=== PATIENT | female | born 1970 | race Caucasian/White ===

== ENCOUNTER 2016-07-04 15:18 | Emergency (ER) | payer MEDICAID ==
[~2016-07-04] VITALS: Ht 167.6 cm; Wt 70.3 kg
[~2016-07-04 15:18] MED LIST: ABREVA2 GM TOPIC; ACETAMINOPHEN-1 EAC1 ORAL; AMOXICILLIN500 MG ORAL; AUGMENTIN 875-1 EAC1 ORAL; AZITHROMYCIN250 MG ORAL; BENADRYL25 M3 PO; BENADRYL25 MG ORAL; BENAZEPRIL HCL10 MG ORAL; CIPRO500 MG PO; CIPROFLOXACIN500 M2 ORAL; COLACE100 MG ORAL; CYCLOBENZAPRINE10 MG ORAL; FISH OIL500 MG PO; FLONASE ALLERG9.9 ML NS; GOLYTELY4000 ML ORAL; HOLY BASIL; IBUPROFEN600 MG ORAL; IBUPROFEN600 MG PO; KEFLEX500 MG ORAL; LACTULOSE20 GM/301 ORAL; LEVAQUIN500 MG ORAL; LEVOFLOXACIN750 MG ORAL; LIPITOR10 MG ORAL; METRONIDAZOLE500 MG ORAL; MIRALAX17 G2 ORAL; MYCELEX TROCHE10 MG ORO; NEOSPORIN OINT30 GM EXT; NITROFURANTOIN100 M2 ORAL; NKM; NORVASC2.5 MG ORAL; NYQUIL D COLD295 M1 PO; NYSTATIN100000 UN1 ORAL; PREDNISONE20 MG ORAL; PROBIOTIC1 EAC6 PO; TAMIFLU75 MG ORAL; TRAMADOL HCL50 MG ORAL; VITAMIN B COMP1 EAC2 ORAL; VITAMIN B-12500 MCG PO; VITAMIN D1000 UNI1 ORAL; ZETIA10 MG ORAL; ZOFRAN4 MG ORAL; ZYRTEC10 MG ORAL
[2016-07-04] MEDS ORDERED: TAMIFLU45 MG ORAL (15:32)
[2016-07-04 15:34] VITALS: BP 149/80
--- NOTE | 2016-07-04 17:20 | Emergency Room Report ---
History of Present Illness General Chief Complaint: General Complaint Source: Patient Present Illness HPI 46 YO F here with "I feel like shit" after taking first dose of tamiflu. I saw patient in ED Jun 06 and diagnosed her with possible influenza. I prescribed Tamiflu because symptom onset was within 48 hours at that time. Patient did NOT take tamiflu then because "I felt better." She was using flonase PRN with improvement. Today she felt cough/symptoms "returning" and took dose of tamiflu -soon after had stomach discomfort with vomiting and diarrhea. Denies previous abd surgery, sick contacts, urinary complaints, foreign travel. Unable to tolerate PO currently. Allergies: Coded Allergies: HYDROMORPHONE (Verified Allergy, Intermediate, Anaphylaxis, 06/22/14) sob, itching and closing throat IODINE (Verified Allergy, Mild, Rash, 06/06/13) RASPBERRY (Verified Allergy, Unknown, 04/03/16) SHELLFISH DERIVED (Verified Allergy, Unknown, 04/03/16) WHEAT (Verified Allergy, Unknown, 09/21/15) Patient History Past Medical History: none Past Surgical History: none Pertinent Family History: none Social History: Denies: alcohol use, drug use, smoking Last Menstrual Period: hysterectomy 2012 Now: No Immunizations: UTD Reviewed Nursing Documentation: PMH: Agreed, PSxH: Agreed Nursing Documentation-PMH Past Medical History: No History, Except For Hx Cardiac Problems: No - hysterectomy 2012 Hx Hypertension: Yes Hx Pacemaker: No Hx Asthma: No Hx COPD: No Hx Diabetes: No Hx Gastrointestinal Problems: Yes Hx Dialysis: No Hx Neurological Problems: No Hx Cerebrovascular Accident: No Hx Seizures: No Hx Dizziness: Yes Review of Systems All Other Systems: negative except mentioned in HPI Physical Exam Vital Signs Date Time Temp Pulse Resp B/P Pulse Ox O2 Delivery O2 Flow Rate FiO2 07/04/16 15:24 98.2 73 14 162/103 99 Room Air Sp02 EP Interpretation: reviewed, normal General Appearance: normal inspection, well appearing, no apparent distress, alert Head: normocephalic, atraumatic ENT: normal ENT inspection, hearing grossly normal, normal voice Neck: normal inspection, full range of motion, supple, no bony tend Respiratory: normal inspection, lungs clear, normal breath sounds, no respiratory distress, no retraction, no wheezing Cardiovascular #1: regular rate, rhythm, no edema Gastrointestinal: normal inspection, normal bowel sounds, non tender, soft, no guarding, no hernia, no pulsatile mass, no rebound Genitourinary: no CVA tenderness Musculoskeletal: normal inspection, back normal, normal range of motion, Ana' s Sign negative Neurologic: normal inspection, alert, responsive, speech normal Psychiatric: normal inspection, judgement/insight normal, mood/affect normal Skin: normal inspection, normal color, no rash Medical Decision Making Diagnostic Impression: Primary Impression: Allergic reaction Qualified Codes: T78.40XA - Allergy, unspecified, initial encounter ER Course 46 YO F with likely allergic reaction to tamiflu. I documented in chart Patient had recurrence of congestion symptoms/URI but CXR does not show PNA. No leuks or other acute abnormalities labs Patient feels much better s/p IVF hdyration, anti emetic. Tolerating PO Rx Zofran, Pepcid, BRAT diet Progress diet slowly PMD followup Advised to avoid tamiflu in future Last Vital Signs Date Time Temp Pulse Resp B/P Pulse Ox O2 Delivery O2 Flow Rate FiO2 07/04/16 15:34 97.5 72 15 149/80 99 Room Air Status: improved Disposition: HOME, SELF-CARE Scripts Famotidine (PEPCID) 20 Mg Tablet 20 MG ORAL BID for 7 Days, #14 TAB 0 Refills Prov: ABEL LAMBERT M.D. 07/04/16 Ondansetron Odt* (ZOFRAN ODT*) 4 Mg Tab.rapdis 4 MG ORAL Q6H Y for Nausea & Vomiting, #30 TAB 0 Refills Prov: ABEL LAMBERT M.D. 07/04/16 Referrals: PAT LEE (PCP) ABEL LAMBERT M.D. Jul 04, 2016 17:20
[2016-07-04 17:35] LABS: APPEARANCE,URINE CLEAR; BASOPHILS % (AUTO) 0.9 % (0.0-2.0); EOSINOPHILS % (AUTO) 1.5 % (0.0-3.0); KETONES,URINE NEGATIVE (NEGATIVE); LEUKOCYTE ESTERASE ,URINE 3+ (NEGATIVE); MEAN CORPUSCULAR HEMOGLOBIN 30.7 PG (27.0-31.0); MEAN CORPUSCULAR HGB CONC 33.6 G/DL (32.0-36.0); MEAN CORPUSCULAR VOLUME 91 FL (80-99); MEAN PLATELET VOLUME 7.6 FL (6.5-10.1); MONOCYTES % (AUTO) 4.1 % (1.0-10.0); NEUTROPHILS % (AUTO) 72.6 % (45.0-75.0); NITRITE,URINE NEGATIVE (NEGATIVE); PH,URINE 6.5 (4.5-8.0); PLATELET COUNT 334 K/UL (150-450); PROTEIN,URINE NEGATIVE (NEGATIVE); RED BLOOD COUNT 4.35 M/UL (4.20-5.40); RED CELL DISTRIBUTION WIDTH 11.7 % (11.6-14.8); UROBILINOGEN,URINE NORMAL MG/DL (0.0-1.0); WHITE BLOOD COUNT 10.5 K/UL (4.8-10.8)
[2016-07-04] MEDS ORDERED: PEPCID20 MG ORAL (17:37)
[2016-07-04] MEDS ORDERED: ZOFRAN ODT4 MG ORAL (17:37)
[2016-07-04 17:43] LABS: BACTERIA,URINE FEW /HPF; SQUAMOUS EPITHELIAL CELL,UR FEW /LPF (NONE/OCC); YEAST,URINE OCCASIONAL /HPF
[2016-07-04 17:53] LABS: ALANINE AMINOTRANSFERASE 18 U/L (3-33); ALBUMIN/GLOBULIN RATIO 1.3 (1.0-2.7); ANION GAP 15 (5-15); ASPARTATE AMINO TRANSFERASE 18 U/L (5-40); CARBON DIOXIDE 27 mEQ/L (20-30); CHLORIDE 97 mEQ/L (98-107); CREATININE 0.6 mg/dL (0.5-0.9); GLOMERULAR FILTRATION RATE > 60 mL/min (>60); HEMOLYSIS 3; LIPASE 24 U/L (< 60); POTASSIUM 3.9 mEQ/L (3.4-4.9); SODIUM 139 mEQ/L (135-145); TOTAL PROTEIN 8.3 g/dL (6.6-8.7)
[2016-07-04 18:24] VITALS: BP 151/73
[2016-07-04] MEDS ORDERED: Ketorolac 30mg Inj IV ONE (18:30)
[2016-07-04 18:49] VITALS: BP 151/73
--- NOTE | 2016-07-05 10:41 | Diagnostic Imaging Report ---
Indication: SOB Technique: One view of the chest Comparison: 09/20/2015 Findings: Lungs and pleural spaces are clear. Heart size is normal. No significant change Impression: No acute process
== END 2016-07-04 18:49 | disposition home or self-care (01) ==
LOC: EMR 15:50
DX: T78.40XA Allergy, unspecified, initial encounter (principal); I10 Essential (primary) hypertension; Z90.710 Acquired absence of both cervix and uterus; Z88.6 Allergy status to analgesic agent; Z91.041 Radiographic dye allergy status; Z91.013 Allergy to seafood; Z91.018 Allergy to other foods; X58.XXXA Exposure to other specified factors, initial encounter; Y92.9 Unspecified place or not applicable; Y99.8 Other external cause status
CPT/HCPCS: 36415; 71010; 80053; 81003; 83690; 85025; 87086; 87181; 96361; 96374; 96375; 99284; J1885; J2405

== ENCOUNTER 2016-08-16 22:48 | Emergency (ER) | payer MEDICAID ==
[~2016-08-16] VITALS: Ht 170.2 cm; Wt 70.3 kg
[~2016-08-16 22:48] MED LIST changes: +PEPCID20 MG ORAL; +TAMIFLU45 MG ORAL; +ZOFRAN ODT4 MG ORAL
[2016-08-16 23:15] VITALS: BP 175/97
[2016-08-16] MEDS ORDERED: Ketorolac 30mg Inj IV ONE (23:30)
--- NOTE | 2016-08-16 23:35 | Emergency Room Report ---
History of Present Illness General Chief Complaint: Vomiting Source: Patient Present Illness HPI This is a 46-year-old female with a history hypertension but no longer any blood pressure medication. She presents with chief complaint of feeling weak. Onset today. She has multiple episode vomiting. Nonbloody and nonbilious. Small amount of diarrhea. Does have abdominal cramps. Denies any other complaint. No fever or chills. No chest pain. No urinary complaint. Unable to keep anything down. She came in because she was concerned about her blood pressure been very high. Allergies: Coded Allergies: HYDROMORPHONE (Verified Allergy, Intermediate, Anaphylaxis, 06/22/14) sob, itching and closing throat IODINE (Verified Allergy, Mild, Rash, 06/06/13) RASPBERRY (Verified Allergy, Unknown, 04/03/16) SHELLFISH DERIVED (Verified Allergy, Unknown, 04/03/16) WHEAT (Verified Allergy, Unknown, 09/21/15) OSELTAMIVIR (Verified Adverse Reaction, Mild, 07/04/16) Nausea, vomiting, stomach discomfort and diarrhea Patient History Past Medical History: see triage record, old chart reviewed, HTN Past Surgical History: other Pertinent Family History: none Social History: Denies: smoking Now: No Immunizations: other Reviewed Nursing Documentation: PMH: Agreed, PSxH: Agreed Nursing Documentation-PMH Hx Cardiac Problems: No - hysterectomy 2012 Hx Hypertension: Yes Hx Pacemaker: No Hx Asthma: No Hx COPD: No Hx Diabetes: No Hx Gastrointestinal Problems: Yes Hx Dialysis: No Hx Neurological Problems: No Hx Cerebrovascular Accident: No Hx Seizures: No Hx Dizziness: Yes Review of Systems Eye: Denies: blurred vision, eye pain ENT: Denies: ear pain, nose congestion, throat swelling Respiratory: Denies: cough, shortness of breath Cardiovascular: Denies: chest pain, palpitations Gastrointestinal: Reports: abdominal pain, nausea, vomiting, Denies: diarrhea Musculoskeletal: Denies: back pain, joint pain Skin: Denies: rash Neurological: Denies: headache, numbness Endocrine: Denies: increased thirst, increased urine Hematologic/Lymphatic: Denies: easy bruising All Other Systems: negative except mentioned in HPI Physical Exam Vital Signs Date Time Temp Pulse Resp B/P Pulse Ox O2 Delivery O2 Flow Rate FiO2 08/16/16 23:01 98.4 84 16 186/112 98 Room Air vitals with hypertension Sp02 EP Interpretation: reviewed, normal General Appearance: well appearing, no apparent distress, alert Head: normocephalic, atraumatic Eyes: bilateral eye EOMI, bilateral eye PERRL ENT: hearing grossly normal, normal pharynx Neck: full range of motion, supple, no meningismus Respiratory: chest non-tender, lungs clear, normal breath sounds Cardiovascular #1: regular rate, rhythm, no murmur Gastrointestinal: non tender, no mass, no organomegaly, no bruit, non-distended , abnormal bowel sounds - Hyper active Musculoskeletal: back normal, gait/station normal, normal range of motion Psychiatric: anxious Skin: warm/dry Medical Decision Making Diagnostic Impression: Primary Impression: Abdominal pain Qualified Codes: R10.84 - Generalized abdominal pain Additional Impressions: Vomiting Qualified Codes: R11.2 - Nausea with vomiting, unspecified Hypertension Qualified Codes: I10 - Essential (primary) hypertension Proteinuria ER Course Patient presents with abdominal cramps with vomiting and small amount of diarrhea. Blood pressure improved after IV fluid and antinausea medication. She was on benazepril before. She tolerated well. We'll discharge back on it. She would benefit from an LIDIA inhibitor medication because of her proteinuria. No evidence of acute abdomen. No melena pain now. No longer nauseous. No evidence of obstruction. This is most likely viral in nature. Lab Results Impression labs unremarkable Last Vital Signs Date Time Temp Pulse Resp B/P Pulse Ox O2 Delivery O2 Flow Rate FiO2 08/16/16 23:01 98.4 84 16 186/112 98 Room Air Status: improved Disposition: HOME, SELF-CARE Condition: Stable Scripts Ondansetron (Zofran) 4 Mg Tablet 4 MG ORAL Q6H Y for Nausea & Vomiting, #10 TAB 0 Refills Prov: RANJANA HO M.D. 08/17/16 Benazepril Hcl* (BENAZEPRIL HCL*) 10 Mg Tablet 10 MG ORAL DAILY, #90 TAB Prov: RANJANA HO M.D. 08/17/16 Referrals: [facility],REFERRING (PCP) Patient Instructions: Nausea and Vomiting, Adult Additional Instructions: Followup with your Dr. to 3 days and not better. Return if symptom worsen. Your doctor recheck on her blood pressure. RANJANA HO M.D. Aug 16, 2016 23:35
[2016-08-16 23:48] LABS: BASOPHILS % (AUTO) 1.4 % (0.0-2.0); EOSINOPHILS % (AUTO) 1.4 % (0.0-3.0); LYMPHOCYTES % (AUTO) 22.4 % (20.0-45.0); MEAN CORPUSCULAR HEMOGLOBIN 29.7 PG (27.0-31.0); MEAN CORPUSCULAR HGB CONC 32.5 G/DL (32.0-36.0); MEAN CORPUSCULAR VOLUME 91 FL (80-99); MEAN PLATELET VOLUME 7.8 FL (6.5-10.1); MONOCYTES % (AUTO) 3.9 % (1.0-10.0); NEUTROPHILS % (AUTO) 70.9 % (45.0-75.0); PLATELET COUNT 336 K/UL (150-450); RED BLOOD COUNT 4.52 M/UL (4.20-5.40); RED CELL DISTRIBUTION WIDTH 11.6 % (11.6-14.8); WHITE BLOOD COUNT 9.7 K/UL (4.8-10.8)
[2016-08-16 23:52] LABS: APPEARANCE,URINE CLEAR; KETONES,URINE NEGATIVE (NEGATIVE); LEUKOCYTE ESTERASE ,URINE 2+ (NEGATIVE); NITRITE,URINE NEGATIVE (NEGATIVE); PH,URINE 8 (4.5-8.0); PROTEIN,URINE 3+ (NEGATIVE); UROBILINOGEN,URINE NORMAL MG/DL (0.0-1.0)
[2016-08-17 00:04] LABS: ALANINE AMINOTRANSFERASE 19 U/L (3-33); ALBUMIN/GLOBULIN RATIO 1.1 (1.0-2.7); ANION GAP 17 (5-15); ASPARTATE AMINO TRANSFERASE 24 U/L (5-40); CALCIUM 10.2 mg/dL (8.6-10.2); CARBON DIOXIDE 26 mEQ/L (20-30); CHLORIDE 92 mEQ/L (98-107); CREATININE 0.6 mg/dL (0.5-0.9); GLOMERULAR FILTRATION RATE > 60 mL/min (>60); HEMOLYSIS 28; LIPASE 20 U/L (< 60); POTASSIUM 4.1 mEQ/L (3.4-4.9); SODIUM 135 mEQ/L (135-145); TOTAL PROTEIN 8.7 g/dL (6.6-8.7)
[2016-08-17 00:11] LABS: AMORPHOUS SEDIMENT,UR MANY /LPF; BACTERIA,URINE FEW /HPF; RBC,URINE 15-20 /HPF (0 - 2); SQUAMOUS EPITHELIAL CELL,UR FEW /LPF (NONE/OCC)
[2016-08-17] MEDS ORDERED: ZOFRAN4 MG ORAL (00:44)
[2016-08-17] MEDS ORDERED: BENAZEPRIL HCL10 MG ORAL (00:44)
[2016-08-17 00:49] VITALS: BP 156/97
[2016-08-17 00:50] VITALS: BP 175/97
== END 2016-08-17 00:56 | disposition home or self-care (01) ==
LOC: EMR 23:20
DX: R10.9 Unspecified abdominal pain (principal); R11.2 Nausea with vomiting, unspecified; I10 Essential (primary) hypertension; R80.9 Proteinuria, unspecified; R19.7 Diarrhea, unspecified
CPT/HCPCS: 36415; 80053; 80300; 81003; 81025; 83690; 85025; 96374; 96375; 99284; J1885; J2405

== ENCOUNTER 2016-10-27 07:56 | Emergency (ER) | payer MEDICAID ==
[~2016-10-27] VITALS: Ht 170.2 cm; Wt 74.8 kg
[2016-10-27 08:16] VITALS: BP 166/92
--- NOTE | 2016-10-27 08:20 | Emergency Room Report ---
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 pulling and pushing Which she feels could potentially have exacerbated/initiated the discomfort Denies any focal weakness Pain starts in the rhomboid region on the right side comes around the lower scapular region Patient also has pain to the top of the shoulder Denies any abdominal pain denies any flank pain denies any fall or trauma Allergies: Coded Allergies: HYDROMORPHONE (Verified Allergy, Intermediate, Anaphylaxis, 06/22/14) sob, itching and closing throat IODINE (Verified Allergy, Mild, Rash, 06/06/13) RASPBERRY (Verified Allergy, Unknown, 04/03/16) SHELLFISH DERIVED (Verified Allergy, Unknown, 04/03/16) WHEAT (Verified Allergy, Unknown, 09/21/15) OSELTAMIVIR (Verified Adverse Reaction, Mild, 07/04/16) Nausea, vomiting, stomach discomfort and diarrhea Patient History Past Medical History: see triage record Pertinent Family History: none Last Menstrual Period: hx of hysterectomy Reviewed Nursing Documentation: PMH: Agreed, PSxH: Agreed Nursing Documentation-PMH Past Medical History: No History, Except For Hx Cardiac Problems: No - hysterectomy 2012 Hx Hypertension: Yes Hx Pacemaker: No Hx Asthma: No Hx COPD: No Hx Diabetes: No Hx Gastrointestinal Problems: Yes Hx Dialysis: No Hx Neurological Problems: No Hx Cerebrovascular Accident: No Hx Seizures: No Hx Dizziness: Yes Review of Systems All Other Systems: negative except mentioned in HPI Physical Exam Vital Signs Date Time Temp Pulse Resp B/P Pulse Ox O2 Delivery O2 Flow Rate FiO2 10/27/16 08:01 97.9 78 16 166/92 98 Room Air Sp02 EP Interpretation: reviewed, normal General Appearance: well appearing, no apparent distress Head: normocephalic, atraumatic Eyes: bilateral eye EOMI, bilateral eye PERRL ENT: normal pharynx Neck: full range of motion, supple Respiratory: lungs clear Cardiovascular #1: regular rate, rhythm Gastrointestinal: non tender Musculoskeletal: other - Patient has discomfort on the palpation of the mid right rhomboid region, also discomfort at the anterior shoulder after approximately 45 flexion patient able to supinate and pronate, Neurologic: alert, oriented x3, responsive, 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 account leader III-XII nml as tested, motor strength/tone normal Skin: no rash Lymphatic: no adenopathy Medical Decision Making Diagnostic Impression: Primary Impression: arm sprain ER Course Consideration for DVT vascular pathology, musculoskeletal, referred pain such as abdominal pathology entertained Patient's discomfort however clinically fits into musculoskeletal pathology also clinically on the exam And otherwise stable for close outpatient followup Last Vital Signs Date Time Temp Pulse Resp B/P Pulse Ox O2 Delivery O2 Flow Rate FiO2 10/27/16 08:16 97.9 16 166/92 98 Room Air 10/27/16 08:01 78 Status: unchanged Disposition: HOME, SELF-CARE Condition: Stable Referrals: [facility],REFERRING (PCP) Patient Instructions: Shoulder Sprain Additional Instructions: It is advised to use rest the right arm and shoulder, repetitive movement and continued to work and continued to worsen your symptoms TIAN WEBSTER D.O. October 27, 2016 08:20
[2016-10-27 08:25] VITALS: BP 166/92
== END 2016-10-27 08:38 | disposition home or self-care (01) ==
LOC: EMR 08:12
DX: S43.491A Other sprain of right shoulder joint, initial encounter (principal); X50.9XXA Other and unspecified overexertion or strenuous movements or postures, initial encounter; Y92.89 Other specified places as the place of occurrence of the external cause; I10 Essential (primary) hypertension; Z88.6 Allergy status to analgesic agent; Z91.013 Allergy to seafood; Z91.018 Allergy to other foods
CPT/HCPCS: 99282

== ENCOUNTER 2017-01-05 18:17 | Emergency (ER) | payer MEDICAID ==
[~2017-01-05] VITALS: Ht 170.2 cm; Wt 75.7 kg
[2017-01-05] MEDS ORDERED: NAPROSYN500 M1 ORAL (18:49)
[2017-01-05] MEDS ORDERED: Naproxen 500mg tab ORAL ONE (19:00)
[2017-01-05 19:02] VITALS: BP 158/89
--- NOTE | 2017-01-05 21:19 | Emergency Room Report ---
History of Present Illness General Chief Complaint: Lower Extremity Injury Present Illness HPI The patient is a 46-year-old female presenting for left leg pain. The patient states that she has been exercising more than usual over the past 3 days which is when the pain began. She denies any injury. Pain worse with walking. She has not tried any pain medications. She denies any radiating pain. It is described as a 9/10 dull ache. She denies any other symptoms Allergies: Coded Allergies: HYDROMORPHONE (Verified Allergy, Intermediate, Anaphylaxis, 06/22/14) sob, itching and closing throat IODINE (Verified Allergy, Mild, Rash, 06/06/13) RASPBERRY (Verified Allergy, Unknown, 04/03/16) SHELLFISH DERIVED (Verified Allergy, Unknown, 04/03/16) WHEAT (Verified Allergy, Unknown, 09/21/15) OSELTAMIVIR (Verified Adverse Reaction, Mild, 07/04/16) Nausea, vomiting, stomach discomfort and diarrhea Patient History Past Medical History: see triage record Pertinent Family History: none Last Menstrual Period: 1998 Now: No Reviewed Nursing Documentation: PMH: Agreed, PSxH: Agreed Nursing Documentation-PMH Hx Cardiac Problems: No - hysterectomy 2012 Hx Hypertension: Yes Hx Pacemaker: No Hx Asthma: No Hx COPD: No Hx Diabetes: No Hx Gastrointestinal Problems: Yes Hx Dialysis: No Hx Neurological Problems: No Hx Cerebrovascular Accident: No Hx Seizures: No Hx Dizziness: Yes Review of Systems All Other Systems: negative except mentioned in HPI Physical Exam Vital Signs Date Time Temp Pulse Resp B/P Pulse Ox O2 Delivery O2 Flow Rate FiO2 01/05/17 18:21 98.6 92 14 178/96 98 Room Air Sp02 EP Interpretation: reviewed, normal General Appearance: no apparent distress, alert, GCS 15, non-toxic Head: normocephalic, atraumatic Eyes: bilateral eye PERRL, bilateral eye normal inspection Musculoskeletal: normal inspection, normal range of motion, tender - TTP along the lateral border of the L mid tibia Neurologic: alert, oriented x3, responsive, motor strength/tone normal, sensory intact, speech normal Psychiatric: judgement/insight normal, memory normal, mood/affect normal, no suicidal/homicidal ideation Skin: normal color, no rash, warm/dry, well hydrated Medical Decision Making PA Attestation Dr. Reyes is my supervising physician. Patient management was discussed with my supervising physician Diagnostic Impression: Primary Impression: Medial tibial stress syndrome Qualified Codes: S86.892A - Other injury of other muscle(s) and tendon(s) at lower leg level, left leg, initial encounter ER Course The patient is a 46-year-old female presenting for left leg pain Ddx considered include but not limited to sprain/strain, fracture, contusion, tendonitis, green splint, among others PE: No apparent distress: Findings are consistent with green splints No x-rays needed at this time. She is given rice instructions and a prescription for NSAID. ER precautions given Last Vital Signs Date Time Temp Pulse Resp B/P Pulse Ox O2 Delivery O2 Flow Rate FiO2 01/05/17 19:18 98.6 01/05/17 19:02 79 17 158/89 98 Room Air Status: improved Disposition: HOME, SELF-CARE Condition: Improved Scripts Naproxen* (NAPROSYN*) 500 Mg Tablet 500 MG ORAL TWICE A DAY, #30 TAB Prov: YEYO ALLEN 01/05/17 Referrals: PAT LEE (PCP) Patient Instructions: Green Splints, RICE for Routine Care of Injuries Additional Instructions: I discussed my findings with the patient. All questions and concerns have been answered. Treatment and medication compliance have been addressed. I advised the patient that they need to follow up with PMD in 3-5 days. Return to ED if pain remains or worsens, numbness or tingling occurs, new rash is noticed, fever is noticed, or if needed for any reason. Patient verbalized understanding of discharge instructions. YEYO ALLEN Jan 05, 2017 21:19
== END 2017-01-05 19:15 | disposition home or self-care (01) ==
LOC: EMR 18:50
DX: M79.662 Pain in left lower leg (principal); I10 Essential (primary) hypertension; Z88.8 Allergy status to other drugs, medicaments and biological substances; Z91.013 Allergy to seafood; Z91.018 Allergy to other foods
CPT/HCPCS: 99283

== ENCOUNTER 2017-10-08 14:19 | Emergency (ER) | payer MEDICAID ==
[~2017-10-08] VITALS: Ht 170.2 cm; Wt 74.8 kg
[~2017-10-08 14:19] MED LIST changes: +NAPROSYN500 M1 ORAL
[2017-10-08 14:36] VITALS: BP 146/89
--- NOTE | 2017-10-08 14:39 | Emergency Room Report ---
History of Present Illness General Chief Complaint: Pain Source: Patient (Anthony Mckeon) Present Illness HPI 47-year-old female patient presents ER complaining of constipation and rectal pain since Sunday. patient report small "letty" able to pass during this time. Patient denies blood in stool or on toilet paper. Patient denies abdominal pain. Patient denies fever, chest pain, shortness breath, vomiting, diarrhea. denies pencil-shaped stool. Denies dysuria, hematuria, vaginal discharge. denies hemorrhoids. Patient reports history of diverticulitis years ago. Reports this pain feels different. Denies LLQ pain. (Anthony Mckeon) Allergies: Coded Allergies: HYDROMORPHONE (Verified Allergy, Intermediate, Anaphylaxis, 06/22/14) sob, itching and closing throat IODINE (Verified Allergy, Mild, Rash, 06/06/13) RASPBERRY (Verified Allergy, Unknown, 04/03/16) SHELLFISH DERIVED (Verified Allergy, Unknown, 04/03/16) WHEAT (Verified Allergy, Unknown, 09/21/15) OSELTAMIVIR (Verified Adverse Reaction, Mild, 07/04/16) Nausea, vomiting, stomach discomfort and diarrhea Patient History Past Medical History: see triage record Last Menstrual Period: Now: No Reviewed Nursing Documentation: PMH: Agreed; PSxH: Agreed (Anthony Mckeon) Nursing Documentation-PMH Hx Cardiac Problems: No - hysterectomy 2012 Hx Hypertension: Yes Hx Pacemaker: No Hx Asthma: No Hx COPD: No Hx Diabetes: No Hx Gastrointestinal Problems: Yes - Diverticulitis Hx Dialysis: No Hx Neurological Problems: No Hx Cerebrovascular Accident: No Hx Seizures: No Hx Dizziness: Yes (Anthony Mckeon) Review of Systems All Other Systems: negative except mentioned in HPI (Anthony Mckeon) Physical Exam Vital Signs Date Time Temp Pulse Resp B/P (MAP) Pulse Ox O2 Delivery O2 Flow Rate FiO2 10/08/17 14:28 98.5 89 16 146/89 95 Room Air 98.4 Sp02 EP Interpretation: reviewed, normal General Appearance: well appearing, no apparent distress, alert, GCS 15, non- toxic Head: normocephalic, atraumatic Eyes: bilateral eye normal inspection, bilateral eye PERRL Neck: full range of motion Respiratory: lungs clear, normal breath sounds, no rhonchi, no respiratory distress, no accessory muscle use, no wheezing, speaking full sentences Cardiovascular #1: regular rate, rhythm, no edema Gastrointestinal: normal bowel sounds, non tender, soft, no mass, non-distended , no guarding, no rebound, other Rectal: other - no hemorrhoids, no fissure, no skin tag Genitourinary: no CVA tenderness Musculoskeletal: back normal, digits/nails normal, gait/station normal, normal range of motion, non-tender Neurologic: alert, oriented x3, responsive, motor strength/tone normal, sensory intact Psychiatric: mood/affect normal Skin: no rash (Anthony Mckeon) Medical Decision Making PA Attestation Dr. Fox is my supervising Physician whom patient management has been discussed with. (Anthony Mckeon) Diagnostic Impression: Primary Impression: Constipation Qualified Codes: K59.00 - Constipation, unspecified ER Course Pt presents to ED c/o generalized abdominal pain. DDX considered but are not limited to cystitis, pyelonephritis, constipation. Low suspicion for appendicitis, no TTP at McBurney's point, negative Rovsing sign. Negative Guillaume sign, patient is afebrile, low suspicion for cholecystitis. VITAL SIGNS are WNL, patient is afebrile. Ordered KUB and pain medication. ER COURSE KUB xray shows nonspecific bowel air, low suspicion for SBO, stool present. Discuss results with Dr. Fox, agrees with reading. Discuss results with patient, informed patient likely constipation cause of symptoms. Will provide patient with treatment. Instructed patient to return to ER for new or worsening of symptoms. Followup with PCP and request referral to GI. Patient is resting comfortably in chair, nontoxic appearing, in no acute distress. Patient states they feel better and is ready to go home. DISCHARGE: -Rx provided for Lactulose Will provide with patient care instructions and any necessary prescriptions. Patient understands and agrees to treatment plan. Patient encouraged to drink plenty of fluids. Patient to take medication as instructed. Care plan and follow-up instructions provided. Patient questions asked and answered. Patient instructed to follow-up with barn manager in 3 - 5 days. ER precautions given. Patient instructed to return to ER immediately for any new or worsening of symptoms. Including but not limited to fever, worsening pain , intractable vomiting. - Please note that this Emergency Department Report was dictated using menuvoxpoacher operator technology software, occasionally this can lead to erroneous entry secondary to interpretation by the dictation equipment. (Anthony Mckeon) Other X-Ray Diagnostic Results Other X-Ray Diagnostic Results : X-Ray ordered: KUB # of Views/Limited Vs Complete: 1 View Indication: Pain EP Interpretation: Yes PA Xray: Interpretation reviewed, by supervising MD, and agrees with findings. Interpretation: no dislocation, no soft tissue swelling, no fractures, nonspecific bowel gas Impression: No acute disease PA Scribe Text Dameon Mckeon PA-C (Anthony Mckeon) Other X-Ray Diagnostic Results : Electronically Signed by: Scribe documentation reviewed by me and is accurate, Johnny Fox MD. (Johnny Fox M.D.) Last Vital Signs Date Time Temp Pulse Resp B/P (MAP) Pulse Ox O2 Delivery O2 Flow Rate FiO2 10/08/17 14:28 98.5 89 16 146/89 95 Room Air 98.4 (Anthony Mckeon) Disposition: HOME, SELF-CARE Condition: Stable Scripts Lactulose (LACTULOSE*) 20 Gm/30 Ml Solution 30 ML ORAL DAILY for 4 Days, ML 0 Refills Prov: Anthony Mckeon 10/08/17 Patient Instructions: Constipation, Adult, [id number] Additional Instructions: Followup with primary care provider in 3 -5 days. Take medications as directed. Patient questions asked and answered. ER precautions given, patient instructed to return to ER immediately for any new or worsening of symptoms. Anthony Mckeon Oct 08, 2017 14:39 Johnny Fox M.D. October 10, 2017 17:01
[2017-10-08] MEDS ORDERED: Acetaminophen 500mg (ES) tab ORAL ONE (15:00)
[2017-10-08] MEDS ORDERED: LACTULOSE20 GM/301 ORAL (15:52)
[2017-10-08 16:16] VITALS: BP 146/89
--- NOTE | 2017-10-08 17:05 | Diagnostic Imaging Report ---
Indication: Pain Technique: XRAY Abdomen 1v Comparison: CT of the abdomen and pelvis 04/16/2015 Findings: Nonspecific bowel gas pattern. The bowel gas pattern is not overtly obstructive. There is stool throughout the colon. Surgical clip is noted projecting just the left of midline in the upper abdomen. Mild degenerative change of the lower lumbar spine. No acute osseous abnormality is seen. Imaged lung bases are grossly clear. IMPRESSION: Nonspecific but not overtly obstructive bowel gas pattern. Further imaging with CT can be obtained as clinically indicated for more sensitive evaluation.
== END 2017-10-08 16:26 | disposition home or self-care (01) ==
LOC: EMR 14:54
DX: K59.00 Constipation, unspecified (principal); I10 Essential (primary) hypertension
CPT/HCPCS: 74018; 99283

== ENCOUNTER 2017-10-19 09:43 | Emergency (ER) | payer MEDICAID ==
[~2017-10-19] VITALS: Ht 170.2 cm; Wt 72.6 kg
[2017-10-19] MEDS ORDERED: NKM (10:02)
--- NOTE | 2017-10-19 10:20 | Emergency Room Report ---
History of Present Illness General Chief Complaint: Headache Source: Patient Present Illness HPI This patient complains of ongoing headache and pressure that started about a week ago. She was seen at another emergency department last week. She underwent a CT of her head and had findings on CT consistent with intracranial hypotension. She states she continues to have a pressure like feeling and headache. She has had some nasal congestion and sinus congestion. She denies fever or chills. She denies neck pain. She denies chest pain or shortness of breath. She denies blurry vision. She denies nausea or vomiting. She does associate the symptoms to have occurred after getting acupuncture. She has no other complaints. Allergies: Coded Allergies: HYDROMORPHONE (Verified Allergy, Intermediate, Anaphylaxis, 06/22/14) sob, itching and closing throat IODINE (Verified Allergy, Mild, Rash, 06/06/13) RASPBERRY (Verified Allergy, Unknown, 04/03/16) SHELLFISH DERIVED (Verified Allergy, Unknown, 04/03/16) WHEAT (Verified Allergy, Unknown, 09/21/15) OSELTAMIVIR (Verified Adverse Reaction, Mild, 07/04/16) Nausea, vomiting, stomach discomfort and diarrhea Patient History Past Medical History: see triage record Past Surgical History: hysterectomy Social History: Denies: smoking, alcohol use, drug use Now: No Reviewed Nursing Documentation: PMH: Agreed; PSxH: Agreed Nursing Documentation-PMH Past Medical History: No History, Except For Hx Cardiac Problems: No - hysterectomy 2012 Hx Hypertension: Yes Hx Pacemaker: No Hx Asthma: No Hx COPD: No Hx Diabetes: No Hx Gastrointestinal Problems: Yes - Diverticulitis Hx Dialysis: No Hx Neurological Problems: No Hx Cerebrovascular Accident: No Hx Seizures: No Hx Dizziness: Yes Review of Systems All Other Systems: negative except mentioned in HPI Physical Exam Vital Signs Date Time Temp Pulse Resp B/P (MAP) Pulse Ox O2 Delivery O2 Flow Rate FiO2 10/19/17 09:56 98.3 75 18 162/95 95 Room Air 98.2 Sp02 EP Interpretation: reviewed, normal General Appearance: no apparent distress, alert, GCS 15, non-toxic Head: normocephalic, atraumatic Eyes: bilateral eye normal inspection, bilateral eye PERRL ENT: hearing grossly normal, normal pharynx, no angioedema, normal voice Neck: full range of motion, supple/symm/no masses Respiratory: chest non-tender, lungs clear, normal breath sounds, speaking full sentences Cardiovascular #1: regular rate, rhythm, no edema Gastrointestinal: normal bowel sounds, non tender, soft, non-distended, no guarding, no rebound Rectal: deferred Musculoskeletal: back normal, gait/station normal, normal range of motion, non- tender Neurologic: alert, oriented x3, responsive, motor strength/tone normal, sensory intact, speech normal Psychiatric: judgement/insight normal, memory normal, mood/affect normal, no suicidal/homicidal ideation Skin: normal color, no rash, warm/dry, well hydrated Medical Decision Making Diagnostic Impression: Primary Impression: Sinusitis ER Course This patient presents with a headache. She also presented with a CT scan from another hospital that had mentioned concern for intracranial hypotension. Therefore, I did obtain an MRI brain with gadolinium. The patient does have findings consistent with a Chiari I malformation. However there is no evidence of intracranial hypotension or CSF leak of any sort. The patient was reassured. I will go ahead and treat the patient for sinusitis that was identified on MRI. The patient also clinically has sinusitis. Given the symptoms have been ongoing over a week, I will go ahead and start a course of antibiotics for the sinusitis in addition to Sudafed. The patient was instructed on nasal saline irrigation. Patient's given close return precautions and follow-up instructions. Laboratory Tests Test 10/19/17 10:40 White Blood Count 8.6 K/UL (4.8-10.8) Red Blood Count 4.54 M/UL (4.20-5.40) Hemoglobin 13.7 G/DL (12.0-16.0) Hematocrit 40.7 % (37.0-47.0) Mean Corpuscular Volume 90 FL (80-99) Mean Corpuscular Hemoglobin 30.1 PG (27.0-31.0) Mean Corpuscular Hemoglobin Concent 33.6 G/DL (32.0-36.0) Red Cell Distribution Width 11.6 % (11.6-14.8) Platelet Count 321 K/UL (150-450) Mean Platelet Volume 9.0 FL (6.5-10.1) Neutrophils (%) (Auto) 65.4 % (45.0-75.0) Lymphocytes (%) (Auto) 26.1 % (20.0-45.0) Monocytes (%) (Auto) 5.0 % (1.0-10.0) Eosinophils (%) (Auto) 2.1 % (0.0-3.0) Basophils (%) (Auto) 1.3 % (0.0-2.0) Sodium Level 142 MMOL/L (136-145) Potassium Level 3.5 MMOL/L (3.5-5.1) Chloride Level 103 MMOL/L (98-107) Carbon Dioxide Level 32 MMOL/L (21-32) Anion Gap 8 mmol/L (5-15) Blood Urea Nitrogen 12 mg/dL (7-18) Creatinine 0.7 MG/DL (0.55-1.30) Estimate Glomerular Filtration Rate > 60 mL/min (>60) Glucose Level 103 MG/DL (74-106) Calcium Level 9.8 MG/DL (8.5-10.1) Total Bilirubin Pending Aspartate Amino Transferase (AST) Pending Alanine Aminotransferase (ALT) Pending Alkaline Phosphatase Pending Total Protein Pending Albumin Pending Globulin Pending Thyroid Stimulating Hormone (TSH) Pending Free Thyroxine Pending CT/MRI/US Diagnostic Results CT/MRI/US Diagnostic Results : Imaging Test Ordered: MRI Brain Impression Chiari I malformation. Sinusitis. See official report. Last Vital Signs Date Time Temp Pulse Resp B/P (MAP) Pulse Ox O2 Delivery O2 Flow Rate FiO2 10/19/17 09:56 98.3 75 18 162/95 95 Room Air 98.2 Status: improved Disposition: HOME, SELF-CARE Condition: Improved Patient Instructions: Sinus Headache LEANNE ANAYA D.O. October 19, 2017 10:20
[2017-10-19] MEDS ORDERED: Acetaminophen 500mg (ES) tab ORAL ONE (10:45)
[2017-10-19] MEDS ORDERED: LORazepam 0.5mg tab ORAL ONE (11:00)
[2017-10-19 11:06] LABS: BASOPHILS % (AUTO) 1.3 % (0.0-2.0); EOSINOPHILS % (AUTO) 2.1 % (0.0-3.0); HEMATOCRIT 40.7 % (37.0-47.0); HEMOGLOBIN 13.7 G/DL (12.0-16.0); LYMPHOCYTES % (AUTO) 26.1 % (20.0-45.0); MEAN CORPUSCULAR VOLUME 90 FL (80-99); NEUTROPHILS % (AUTO) 65.4 % (45.0-75.0); PLATELET COUNT 321 K/UL (150-450); RED BLOOD COUNT 4.54 M/UL (4.20-5.40); RED CELL DISTRIBUTION WIDTH 11.6 % (11.6-14.8); WHITE BLOOD COUNT 8.6 K/UL (4.8-10.8)
[2017-10-19 11:15] LABS: ANION GAP 8 mmol/L (5-15); BLOOD UREA NITROGEN 12 mg/dL (7-18); CALCIUM 9.8 MG/DL (8.5-10.1); CARBON DIOXIDE 32 MMOL/L (21-32); CHLORIDE 103 MMOL/L (98-107); CREATININE 0.7 MG/DL (0.55-1.30); POTASSIUM 3.5 MMOL/L (3.5-5.1); SODIUM 142 MMOL/L (136-145)
[2017-10-19 11:28] LABS: ALANINE AMINOTRANSFERASE 55 U/L (12-78); ALBUMIN 4.1 G/DL (3.4-5.0); ALBUMIN/GLOBULIN RATIO 0.9 (1.0-2.7); ALKALINE PHOSPHATASE 95 U/L (46-116); ASPARTATE AMINO TRANSFERASE 18 U/L (15-37); BILIRUBIN,TOTAL 0.5 MG/DL (0.2-1.0)
[2017-10-19] MEDS ORDERED: DiphenhydrAMINE 50mg/ml Inj IVP ONE ×2 (11:45)
[2017-10-19] MEDS ORDERED: LORazepam Inj 2mg/ml 1ml IV ONE (11:45)
[2017-10-19] MEDS ORDERED: Gadavist 7.5mMol/7.5ml vial IV PRN (11:45)
[2017-10-19 12:49] VITALS: BP 158/81
--- NOTE | 2017-10-19 13:10 | Diagnostic Imaging Report ---
Indication: Headache. Previous CT examination done elsewhere suggesting possible intracranial hypotension. Technique: The head was imaged in a 1.5 Sofia magnet. Sequences obtained include sagittal and axial T1 FLAIR, axial T2 fast spin echo with fat saturation, axial T2 FLAIR, diffusion and ADC map. Gadolinium-enhanced axial and coronal T1 FLAIR obtained also. Comparison: MRI brain without contrast 09/20/2015 Findings: The cerebellar tonsils are slightly low-lying consistent with a Chiari I malformation. The size, contour, and configuration of the sulci, ventricles, and basal cisterns appear normal. Belcher-white differentiation is normal. There is no restricted diffusion. There is no mass effect, midline shift, edema, or hemorrhage. There are no abnormal extra-axial or intra-axial fluid collections. The corpus callosum is unremarkable. The brainstem and cerebellum are unremarkable. The sella is unremarkable. Bone marrow signal within the visualized osseous structures appears age appropriate and unremarkable otherwise. Submucosal thickening demonstrated within the maxillary antra consistent with sinusitis. No abnormal enhancement is identified. Specifically, there is no evidence of pachymeningeal enhancement. Impression: Negative MRI brain with and without contrast. Sinusitis Chiari I malformation
[2017-10-19] MEDS ORDERED: SALINE NASAL SP45 ML NASAL (14:18)
[2017-10-19] MEDS ORDERED: PSEUDOEPHEDRINE60 MG PO (14:18)
[2017-10-19] MEDS ORDERED: AUGMENTIN 875-1 EAC1 ORAL (14:18)
[2017-10-19 14:40] VITALS: BP 155/90
[2017-10-19 15:10] VITALS: BP 155/90
== END 2017-10-19 15:10 | disposition home or self-care (01) ==
LOC: EMR 10:19
DX: J32.9 Chronic sinusitis, unspecified (principal); I10 Essential (primary) hypertension; Z91.041 Radiographic dye allergy status; Z88.0 Allergy status to penicillin; Z91.013 Allergy to seafood; Z90.710 Acquired absence of both cervix and uterus; G93.5 Compression of brain
CPT/HCPCS: 36415; 70553; 80053; 84439; 84443; 85025; 96374; 96375; 99284; A9585; J1200

== ENCOUNTER 2017-10-21 17:22 | Emergency (ER) | payer MEDICAID ==
[~2017-10-21] VITALS: Ht 170.2 cm; Wt 72.6 kg
[~2017-10-21 17:22] MED LIST changes: +PSEUDOEPHEDRINE60 MG PO; +SALINE NASAL SP45 ML NASAL
--- NOTE | 2017-10-21 18:12 | Emergency Room Report ---
History of Present Illness General Chief Complaint: Earache Source: Patient Present Illness HPI 47 Yo Female presents to the ED c/o right ear pain x 2 weeks. Patient has been evaluated twice for her condition she is currently on day 3 of antibiotics and was recently diagnosed with sinusitis several days ago.Patient describes tenderness in sharp pain in the right ear as well as pressure inside of her ear. Patient states that her symptoms have gotten worse over the course of the last 3-4 days. Patient denies fever she denies trauma or Q-tip use. Patient states that her symptoms began after having acupuncture performed were needle was placed in her ear. Patient reports some mild redness she denies discharge. she denies tinnitus Or loss of hearing. Denies CP, Palpitations, LOC, AMS, dizziness, Changes in Vision, Sensation, paresthesias, or a sudden severe headache.Denies ear discharge, external tenderness, trauma. Allergies: Coded Allergies: HYDROMORPHONE (Verified Allergy, Intermediate, Anaphylaxis, 06/22/14) sob, itching and closing throat IODINE (Verified Allergy, Mild, Rash, 06/06/13) RASPBERRY (Verified Allergy, Unknown, 04/03/16) SHELLFISH DERIVED (Verified Allergy, Unknown, 04/03/16) WHEAT (Verified Allergy, Unknown, 09/21/15) OSELTAMIVIR (Verified Adverse Reaction, Mild, 07/04/16) Nausea, vomiting, stomach discomfort and diarrhea Patient History Past Medical History: see triage record Past Surgical History: none Pertinent Family History: none Last Menstrual Period: Hysterectomy 1998 Now: No Reviewed Nursing Documentation: PMH: Agreed; PSxH: Agreed Nursing Documentation-PMH Hx Cardiac Problems: No - hysterectomy 2012, Sinusitis Hx Hypertension: Yes Hx Pacemaker: No Hx Asthma: No Hx COPD: No Hx Diabetes: No Hx Gastrointestinal Problems: Yes - Diverticulitis Hx Dialysis: No Hx Neurological Problems: No Hx Cerebrovascular Accident: No Hx Seizures: No Hx Dizziness: Yes Review of Systems All Other Systems: negative except mentioned in HPI Physical Exam Vital Signs Date Time Temp Pulse Resp B/P (MAP) Pulse Ox O2 Delivery O2 Flow Rate FiO2 10/21/17 17:47 98.4 82 17 163/102 95 Room Air 98.4 Sp02 EP Interpretation: reviewed, normal General Appearance: no apparent distress, alert, GCS 15, non-toxic Head: normocephalic, atraumatic Eyes: bilateral eye normal inspection, bilateral eye PERRL ENT: hearing grossly normal, normal voice, nasal congestion, other - Right ear canal is erythematous and macerated in appearance with clear d/c noted, no TM involvement, no evidence of mastoidits or preauricular LAD on PE Neck: full range of motion, no bony tend Respiratory: lungs clear, normal breath sounds, speaking full sentences Cardiovascular #1: regular rate, rhythm Musculoskeletal: back normal, gait/station normal, normal range of motion, non- tender Neurologic: alert, oriented x3, responsive, motor strength/tone normal, sensory intact, cerebellar normal, normal gait, speech normal, grossly normal Psychiatric: judgement/insight normal Skin: normal color, no rash, warm/dry, well hydrated Lymphatic: no adenopathy Medical Decision Making PA Attestation Dr. goss is my supervising Physician whom patient management has been discussed with. Diagnostic Impression: Primary Impression: Otitis externa of right ear Qualified Codes: H60.391 - Other infective otitis externa, right ear Additional Impression: Ear pain, right ER Course 47 Yo Female presents to the ED c/o right ear pain x 2 weeks. Patient has been evaluated twice for her condition she is currently on day 3 of antibiotics and was recently diagnosed with sinusitis several days ago.Patient describes tenderness in sharp pain in the right ear as well as pressure inside of her ear. Patient states that her symptoms have gotten worse over the course of the last 3-4 days. Patient denies fever she denies trauma or Q-tip use. Patient states that her symptoms began after having acupuncture performed were needle was placed in her ear. Patient reports some mild redness she denies discharge. she denies tinnitus Or loss of hearing. Denies CP, Palpitations, LOC, AMS, dizziness, Changes in Vision, Sensation, paresthesias, or a sudden severe headache.Denies ear discharge, external tenderness, trauma. Ddx considered but are not limited to OM, OE, mastoiditis, TM perforation, FB Vital signs: are WNL, pt. is afebrile H&PE are most consistent with otitis externa ORDERS: none required at this time, the diagnosis is clinical -OTOSCOPY: Right ear canal is erythematous and macerated in appearance with clear d/c noted, no TM involvement, no evidence of mastoidits or preauricular LAD on PE ED INTERVENTIONS: None required at this time. DISCHARGE: At this time pt. is stable for d/c to home. With Otic ABX. Will provide printed patient care instructions, and any necessary prescriptions. Care plan and follow up instructions have been discussed with the patient prior to discharge. Last Vital Signs Date Time Temp Pulse Resp B/P (MAP) Pulse Ox O2 Delivery O2 Flow Rate FiO2 10/21/17 17:47 98.4 82 17 163/102 95 Room Air 98.4 Disposition: HOME, SELF-CARE Condition: Stable Scripts Acetaminophen With Codeine (T#3) (TYLENOL #3 TAB*) Y Tab 1 TAB ORAL Q6HR PRN for For Pain, #6 TAB Prov: Koki Richardson 10/21/17 Neomycin/Polymyxin B Sulf/Hc* (CORTISPORIN EAR SOLUTION*) 10 Ml Solution 4 DROP RIGHT EAR QID for 5 Days, #10 ML 0 Refills Prov: Koki Richardson 10/21/17 Patient Instructions: Otitis Externa, [id number] Additional Instructions: Take medications as directed. Follow up with a ENT ( Ears, Nose, Throat ) Specialist in 3-5 days, especially if your symptoms are not resolving. --Please review list of primary care clinics, if you do not already have a primary care provider Return sooner to ED if new symptoms occur, or current symptoms become worse. Do not drink alcohol, drive, or operate heavy machinery while taking Tylenol # 3 as this may cause drowsiness. - Please note that this Emergency Department Report was dictated using SmartCare systempopcorn attendant technology software, occasionally this can lead to erroneous entry secondary to interpretation by the dictation equipment. Koki Richardson October 21, 2017 18:12
[2017-10-21] MEDS ORDERED: CORTISPORIN EAR10 ML RIGHT EAR (18:25)
[2017-10-21] MEDS ORDERED: ACETAMINOPHEN-1 EAC1 ORAL (18:25)
[2017-10-21 18:36] VITALS: BP 155/99
== END 2017-10-21 18:38 | disposition home or self-care (01) ==
LOC: EMR 18:15
DX: H60.91 Unspecified otitis externa, right ear (principal); I10 Essential (primary) hypertension; Z91.041 Radiographic dye allergy status; Z91.013 Allergy to seafood; Z88.5 Allergy status to narcotic agent
CPT/HCPCS: 99284

== ENCOUNTER 2017-11-22 08:58 | Emergency (ER) | payer MEDICAID ==
[~2017-11-22] VITALS: Ht 170.2 cm; Wt 73.9 kg
[~2017-11-22 08:58] MED LIST changes: +CORTISPORIN EAR10 ML RIGHT EAR
[2017-11-22] MEDS ORDERED: VITAMIN D400 UNI2 PO (09:05)
[2017-11-22 09:09] VITALS: BP 135/86
[2017-11-22 09:49] LABS: APPEARANCE,URINE CLEAR; BILIRUBIN, URINE NEGATIVE (NEGATIVE); COLOR,URINE PALE YELLOW; GLUCOSE, URINE (UA) NEGATIVE (NEGATIVE); KETONES,URINE NEGATIVE (NEGATIVE); LEUKOCYTE ESTERASE ,URINE 1+ (NEGATIVE); NITRITE,URINE NEGATIVE (NEGATIVE); PH,URINE 7 (4.5-8.0); PROTEIN,URINE NEGATIVE (NEGATIVE); UROBILINOGEN,URINE NORMAL MG/DL (0.0-1.0)
--- NOTE | 2017-11-22 09:59 | Emergency Room Report ---
History of Present Illness General Chief Complaint: General Complaint Source: Patient, Medical Record Present Illness HPI 47-year-old female presents ED complaining of abdominal pain 3 days. Patient localizes pain to left lower abdomen, 8 out of 10, dull, nonradiating. Patient notes history of diverticulitis. States this feels like her typical diverticulitis flareup. Denies fevers or chills. Denies nausea or vomiting. Denies flank pain. No other aggravating relieving factors. Denies any other associated symptoms Allergies: Coded Allergies: HYDROMORPHONE (Verified Allergy, Intermediate, Anaphylaxis, 06/22/14) sob, itching and closing throat IODINE (Verified Allergy, Mild, Rash, 06/06/13) RASPBERRY (Verified Allergy, Unknown, 04/03/16) SHELLFISH DERIVED (Verified Allergy, Unknown, 04/03/16) WHEAT (Verified Allergy, Unknown, 09/21/15) OSELTAMIVIR (Verified Adverse Reaction, Mild, 07/04/16) Nausea, vomiting, stomach discomfort and diarrhea Patient History Past Medical History: diverticulitis Past Surgical History: none Pertinent Family History: none Social History: Denies: smoking, alcohol use, drug use Last Menstrual Period: hysterectomy 1998 Now: No Immunizations: UTD Reviewed Nursing Documentation: PMH: Agreed; PSxH: Agreed Nursing Documentation-PMH Past Medical History: No History, Except For Hx Cardiac Problems: No - hysterectomy 2012, Sinusitis Hx Hypertension: Yes Hx Pacemaker: No Hx Asthma: No Hx COPD: No Hx Diabetes: No Hx Gastrointestinal Problems: Yes - Diverticulitis Hx Dialysis: No Hx Neurological Problems: No Hx Cerebrovascular Accident: No Hx Seizures: No Hx Dizziness: Yes Review of Systems All Other Systems: negative except mentioned in HPI Physical Exam Vital Signs Date Time Temp Pulse Resp B/P (MAP) Pulse Ox O2 Delivery O2 Flow Rate FiO2 11/22/17 08:59 98.3 73 18 159/84 95 Room Air 98.2 Sp02 EP Interpretation: reviewed, normal General Appearance: no apparent distress, alert, GCS 15, non-toxic Head: normocephalic, atraumatic Eyes: bilateral eye normal inspection, bilateral eye PERRL ENT: hearing grossly normal, normal pharynx, no angioedema, normal voice Neck: full range of motion, supple/symm/no masses Respiratory: chest non-tender, lungs clear, normal breath sounds, speaking full sentences Cardiovascular #1: regular rate, rhythm, no edema Cardiovascular #2: 2+ carotid (R), 2+ carotid (L), 2+ radial (R), 2+ radial (L) , 2+ dorsalis pedis (R), 2+ dorsalis pedis (L) Gastrointestinal: normal bowel sounds, soft, non-distended, no guarding, no rebound, tenderness - LLQ Rectal: deferred Genitourinary: normal inspection, no CVA tenderness Musculoskeletal: back normal, gait/station normal, normal range of motion, non- tender Neurologic: alert, oriented x3, responsive, motor strength/tone normal, sensory intact, speech normal Psychiatric: judgement/insight normal, memory normal, mood/affect normal, no suicidal/homicidal ideation Reflexes: 3+ bicep (R), 3+ bicep (L), 3+ tricep (R), 3+ tricep (L), 3+ knee (R) , 3+ knee (L) Skin: normal color, no rash, warm/dry, well hydrated Lymphatic: no adenopathy Medical Decision Making Diagnostic Impression: Primary Impression: diverticulitis ER Course Hospital Course 47-year-old F presents to ED with lower abdominal pain Differential diagnoses include: appendicitis, diverticulitis, SBO, gastroenteritis Clinical course Patient placed on stretcher. telemetry monitor. After initial history and physical I ordered labs, IV fluids, UA, pain medication and CT scan Labs - no leukocytosis, Hb/Hct stable. electrolytes ok. CT abdomen and pelvis - diverticulitis no evidence of free air or abscess. CT also documents a ureteral stricture with some hydronephrosis. given that patient appears nontoxic with normal labs and tolerating oral intake I believe patient be safely discharged to home with antibiotics Discussed findings with patient. patient notes a prior history of ureteral stricture requiring stent placement and subsequent removed. I'll provide her with urology referral. Given Cipro and Flagyl in ED. I feel this is a highly complex case requiring extensive working including EKG/ Rhythm strip, Xray/CT/US, Blood/urine lab work, repeat exams while in ED, and administration of strong opiates/narcotics for pain control, admission to hospital or close patient follow up. Diagnosis - divertculitis stable and discharged to home with prescription for Cipro and Flagyl. Followup with PMD/urology. Return to ED if symptoms recur or worsen Labs Test 11/22/17 09:10 11/22/17 09:45 Urine Color Pale yellow Urine Appearance Clear Urine pH 7 (4.5-8.0) Urine Specific [place] 1.005 (1.005-1.035) Urine Protein Negative (NEGATIVE) Urine Glucose (UA) Negative (NEGATIVE) Urine Ketones Negative (NEGATIVE) Urine Occult Blood 2+ (NEGATIVE) Urine Nitrite Negative (NEGATIVE) Urine Bilirubin Negative (NEGATIVE) Urine Urobilinogen Normal MG/DL (0.0-1.0) Urine Leukocyte Esterase 1+ (NEGATIVE) Urine RBC 2-4 /HPF (0 - 2) Urine WBC 0-2 /HPF (0 - 2) Urine Squamous Epithelial Cells Few /LPF (NONE/OCC) Urine Bacteria Occasional /HPF (NONE) Urine HCG, Qualitative Negative (NEGATIVE) White Blood Count 7.9 K/UL (4.8-10.8) Red Blood Count 4.50 M/UL (4.20-5.40) Hemoglobin 13.4 G/DL (12.0-16.0) Hematocrit 40.4 % (37.0-47.0) Mean Corpuscular Volume 90 FL (80-99) Mean Corpuscular Hemoglobin 29.8 PG (27.0-31.0) Mean Corpuscular Hemoglobin Concent 33.2 G/DL (32.0-36.0) Red Cell Distribution Width 11.5 % (11.6-14.8) Platelet Count 361 K/UL (150-450) Mean Platelet Volume 8.3 FL (6.5-10.1) Neutrophils (%) (Auto) 60.8 % (45.0-75.0) Lymphocytes (%) (Auto) 26.4 % (20.0-45.0) Monocytes (%) (Auto) 6.0 % (1.0-10.0) Eosinophils (%) (Auto) 5.4 % (0.0-3.0) Basophils (%) (Auto) 1.4 % (0.0-2.0) Sodium Level 140 MMOL/L (136-145) Potassium Level 3.6 MMOL/L (3.5-5.1) Chloride Level 103 MMOL/L (98-107) Carbon Dioxide Level 30 MMOL/L (21-32) Anion Gap 7 mmol/L (5-15) Blood Urea Nitrogen 10 mg/dL (7-18) Creatinine 0.7 MG/DL (0.55-1.30) Estimat Glomerular Filtration Rate > 60 mL/min (>60) Glucose Level 108 MG/DL (74-106) Calcium Level 9.7 MG/DL (8.5-10.1) Total Bilirubin 0.9 MG/DL (0.2-1.0) Aspartate Amino Transf (AST/SGOT) 16 U/L (15-37) Alanine Aminotransferase (ALT/SGPT) 24 U/L (12-78) Alkaline Phosphatase 88 U/L (46-116) Total Protein 8.8 G/DL (6.4-8.2) Albumin 3.9 G/DL (3.4-5.0) Globulin 4.9 g/dL Albumin/Globulin Ratio 0.8 (1.0-2.7) Lipase 79 U/L (73-393) CT/MRI/US Diagnostic Results CT/MRI/US Diagnostic Results : Imaging Test Ordered: CT A/P Impression diverticulitis, no abscess or free air. ureteral stricture Last Vital Signs Date Time Temp Pulse Resp B/P (MAP) Pulse Ox O2 Delivery O2 Flow Rate FiO2 11/22/17 09:09 98.2 64 15 135/86 98 Room Air 98.2 Status: improved Disposition: HOME, SELF-CARE Condition: Stable Scripts Acetaminophen* (TYLENOL EXTRA STRENGTH*) 500 Mg Tablet 500 MG ORAL Q8H PRN for Prn Headache/Temp > 101, #30 TAB 0 Refills Prov: Ector Felix MD 11/22/17 Metronidazole* (FLAGYL*) 500 Mg Tablet 500 MG ORAL THREE TIMES A DAY, #21 TAB Prov: Ector Felix MD 11/22/17 Ciprofloxacin Hcl* (CIPROFLOXACIN HCL*) 500 Mg Tablet 500 MG ORAL Q12H, #14 TAB 0 Refills Prov: Ector Felix MD 11/22/17 Referrals: Roland Monsalve MD (PCP) Ector Felix MD Nov 22, 2017 09:59
[2017-11-22 10:06] LABS: BASOPHILS % (AUTO) 1.4 % (0.0-2.0); EOSINOPHILS % (AUTO) 5.4 % (0.0-3.0); HEMATOCRIT 40.4 % (37.0-47.0); HEMOGLOBIN 13.4 G/DL (12.0-16.0); LYMPHOCYTES % (AUTO) 26.4 % (20.0-45.0); MEAN CORPUSCULAR VOLUME 90 FL (80-99); NEUTROPHILS % (AUTO) 60.8 % (45.0-75.0); PLATELET COUNT 361 K/UL (150-450); RED CELL DISTRIBUTION WIDTH 11.5 % (11.6-14.8); WHITE BLOOD COUNT 7.9 K/UL (4.8-10.8)
[2017-11-22 10:21] LABS: ANION GAP 7 mmol/L (5-15); BLOOD UREA NITROGEN 10 mg/dL (7-18); CALCIUM 9.7 MG/DL (8.5-10.1); CARBON DIOXIDE 30 MMOL/L (21-32); CHLORIDE 103 MMOL/L (98-107); CREATININE 0.7 MG/DL (0.55-1.30); POTASSIUM 3.6 MMOL/L (3.5-5.1); SODIUM 140 MMOL/L (136-145)
[2017-11-22 10:26] LABS: ALANINE AMINOTRANSFERASE 24 U/L (12-78); ALBUMIN 3.9 G/DL (3.4-5.0); ALBUMIN/GLOBULIN RATIO 0.8 (1.0-2.7); ALKALINE PHOSPHATASE 88 U/L (46-116); ASPARTATE AMINO TRANSFERASE 16 U/L (15-37); BILIRUBIN,TOTAL 0.9 MG/DL (0.2-1.0)
[2017-11-22 11:16] VITALS: BP 149/86
[2017-11-22] MEDS ORDERED: CIPROFLOXACIN500 M2 ORAL (12:09)
[2017-11-22] MEDS ORDERED: TYLENOL EXTRA500 MG ORAL (12:09)
[2017-11-22] MEDS ORDERED: METRONIDAZOLE500 MG ORAL (12:09)
[2017-11-22 12:15] VITALS: BP 152/86
[2017-11-22] MEDS ORDERED: Ciprofloxacin 500mg tab ORAL ONE (12:15)
[2017-11-22] MEDS ORDERED: metroNIDAZOLE 500mg tab ORAL ONE (12:15)
--- NOTE | 2017-11-22 14:38 | Diagnostic Imaging Report ---
Indication: Abdominal pain x3 days Technique: Spiral acquisitions obtained through the abdomen and pelvis. No oral contrast utilized, per emergency room physician request No IV contrast utilized, per referring physician request.. Multiplanar reconstructions were generated. Total dose length product 856 mGycm. CTDIvol(s) 15 mGy. Dose reduction achieved using automated exposure control Comparison: 06/25/2014 Findings: Interim development of moderate to severe right hydroureter, moderate right hydronephrosis. The distal ureter tapers in caliber, almost to normal caliber at the level of the ureterovesical junction. No ureteral calculus or ureteral or bladder mass demonstrated. No bladder calculi. The bladder is somewhat distended. The left ureter and left renal collecting system are unremarkable. No intrahepatic renal calculi. Lack of IV contrast limits assessment of the renal parenchyma. No gross renal parenchymal mass or cyst demonstrated Lack of enteric contrast limits assessment of the GI tract. Again demonstrated is colonic diverticulosis. There is thickening of the sigmoid colon wall. There is minimal inflammation of the perisigmoid fat along the proximal portion of the thickened sigmoid wall. However, the extensive perisigmoid inflammatory change demonstrated on the prior study is not evident currently. There is a single prominent perisigmoid lymph node, but this was also evident previously. No extraluminal gas or fluid is evident. Remainder the colon is unremarkable. The appendix is prominent in caliber, but contains gas, there is no periappendiceal inflammatory change, and appearance is unchanged from previous. Small bowel is nondistended. There is a small fat-containing umbilical hernia again demonstrated. No free or loculated intraperitoneal air or fluid. There is a small sliding-type hiatal hernia. The stomach, duodenum are unremarkable. Lack of IV contrast limits assessment of the solid organs. The liver, gallbladder, bile ducts, pancreas, spleen, adrenals are unremarkable. No retroperitoneal or mesenteric mass or adenopathy. No pelvic mass or adenopathy. The uterus is not visualized, presumed surgically absent. The included lung bases are clear. The bones demonstrate degenerative changes of the lower lumbar spine.. Impression: Colonic diverticulosis. There is sigmoid wall thickening of the mid to distal sigmoid, and suggestion of minimal inflammation of the perisigmoid fat. Given stated clinical history, findings may represent early diverticulitis. Note that the perisigmoid inflammation is much less extensive than seen on prior study of 04/25/2015 Severe right hydroureter and moderate right hydronephrosis, hydroureter extending to the distal ureter. No definite stone or obstructive mass is demonstrated, etiology of this finding therefore indeterminate. Urology evaluation is demonstrated. Other findings as noted, including small hiatal hernia, degenerative spondylosis, prior hysterectomy, small fat-containing umbilical hernia The CT scanner at [facility] is accredited by the [employer] and the scans are performed using protocols designed to limit radiation exposure to as low as reasonably achievable to attain images of sufficient resolution adequate for diagnostic evaluation.
== END 2017-11-22 12:15 | disposition home or self-care (01) ==
LOC: EMR 09:24
DX: K57.32 Diverticulitis of large intestine without perforation or abscess without bleeding (principal); I10 Essential (primary) hypertension; Z91.041 Radiographic dye allergy status; Z91.013 Allergy to seafood; Z91.018 Allergy to other foods; Z90.710 Acquired absence of both cervix and uterus
CPT/HCPCS: 36415; 74176; 80053; 81003; 81025; 83690; 85025; 96360; 96374; 99284

== ENCOUNTER 2018-02-19 11:54 | Emergency (ER) | payer MEDICAID ==
[~2018-02-19] VITALS: Ht 170.2 cm; Wt 69.4 kg
[~2018-02-19 11:54] MED LIST changes: +TYLENOL EXTRA500 MG ORAL; +VITAMIN D400 UNI2 PO
[2018-02-19 12:00] VITALS: BP 168/95
[2018-02-19] MEDS ORDERED: DiphenhydrAMINE 50mg/ml Inj IVP ONE ×2 (12:30→13:30)
[2018-02-19] MEDS ORDERED: Morphine Sulfate 4mg/ml Inj (IV USE ONLY) IVP ONE (12:30)
[2018-02-19] MEDS ORDERED: Metoclopramide 10mg/2ml Inj IVP ONE (12:30)
[2018-02-19] MEDS ORDERED: ATIVAN2 MG ORAL (13:32)
--- NOTE | 2018-02-19 13:38 | Emergency Room Report ---
History of Present Illness General Chief Complaint: Headache Source: Patient Present Illness HPI Patient has a history of GERD formation and chronic headaches. Patient states that she was out late last night and then developed acute onset headache today. She thinks that she didn't drink or eat very much. And she was likely dehydrated. She complains of nausea but no vomiting. Denies any chest pain shortness of breath. Denies any trauma fever neck stiffness. This headache is fairly typical for her usual exacerbation the patient has had extensive workup done in the past including MRIs.No other modifying factors. No other associated signs and symptoms. No other complaints were noted. Symptoms noted to be moderate to severe. Allergies: Coded Allergies: HYDROMORPHONE (Verified Allergy, Intermediate, Anaphylaxis, 06/22/14) sob, itching and closing throat IODINE (Verified Allergy, Mild, Rash, 06/06/13) RASPBERRY (Verified Allergy, Unknown, 04/03/16) SHELLFISH DERIVED (Verified Allergy, Unknown, 04/03/16) WHEAT (Verified Allergy, Unknown, 09/21/15) OSELTAMIVIR (Verified Adverse Reaction, Mild, 07/04/16) Nausea, vomiting, stomach discomfort and diarrhea Patient History Past Medical History: HTN, other - diverticulitis PMH Narrative dizziness Past Surgical History: none Pertinent Family History: none Social History: Denies: smoking, alcohol use, drug use Last Menstrual Period: 1998 Now: No Reviewed Nursing Documentation: PMH: Agreed; PSxH: Agreed Nursing Documentation-PMH Past Medical History: No History, Except For Hx Cardiac Problems: No - hysterectomy 2012, Sinusitis Hx Hypertension: Yes Hx Pacemaker: No Hx Asthma: No Hx COPD: No Hx Diabetes: No Hx Gastrointestinal Problems: Yes - Diverticulitis Hx Dialysis: No Hx Neurological Problems: No Hx Cerebrovascular Accident: No Hx Seizures: No Hx Dizziness: Yes Review of Systems All Other Systems: negative except mentioned in HPI Physical Exam Vital Signs Date Time Temp Pulse Resp B/P (MAP) Pulse Ox O2 Delivery O2 Flow Rate FiO2 02/19/18 11:56 98.1 70 14 168/95 96 Room Air 98.1 Sp02 EP Interpretation: reviewed, normal General Appearance: alert, moderate distress Head: atraumatic Eyes: bilateral eye normal inspection ENT: normal ENT inspection, hearing grossly normal, normal voice Neck: normal inspection, full range of motion, supple, no bony tend Respiratory: normal inspection, lungs clear, normal breath sounds, no respiratory distress, no retraction, no wheezing Cardiovascular #1: regular rate, rhythm, no edema Gastrointestinal: normal inspection, normal bowel sounds, non tender, soft, no guarding, no hernia Genitourinary: no CVA tenderness Musculoskeletal: normal inspection, back normal, normal range of motion Neurologic: normal inspection, alert, responsive, speech normal Psychiatric: normal inspection, judgement/insight normal, mood/affect normal Skin: normal inspection, normal color, no rash Medical Decision Making Diagnostic Impression: Primary Impression: Headache ER Course Patient presents emergency department today complaining of a headache. Differential considerations include migraine headache, stress headache, infectious process, intracranial emergency just name a few. Patient's exam showed benign. Patient's symptoms are consistent with migraine headaches. Patient has had this before. Patient was started on IV fluids pain medications nausea medications and Benadryl with significant improvement in symptoms. Given the patient feels much better after the patient be discharged home. I recommended fluids pain medication at home return if worse.Patient is advised to follow up with primary doctor in 2-3 days and return the emergency room for any worsening symptoms and as needed. Last Vital Signs Date Time Temp Pulse Resp B/P (MAP) Pulse Ox O2 Delivery O2 Flow Rate FiO2 02/19/18 12:38 98.1 02/19/18 12:00 78 14 168/95 96 Room Air Status: improved Disposition: HOME, SELF-CARE Condition: Stable Scripts Lorazepam* (ATIVAN*) 2 Mg Tablet 2 MG ORAL THREE TIMES A DAY, #10 TAB Prov: Mukund Holcomb MD 02/19/18 Patient Instructions: Migraine Headache Mukund Holcomb MD Feb 19, 2018 13:38
[2018-02-19 13:47] VITALS: BP 140/78
== END 2018-02-19 13:45 | disposition home or self-care (01) ==
LOC: EMR 12:15
DX: R51 Headache (principal); I10 Essential (primary) hypertension; Z91.013 Allergy to seafood; Z91.09 Other allergy status, other than to drugs and biological substances
CPT/HCPCS: 96361; 96374; 96375; 96376; 99284; J1200; J2270; J2765

== ENCOUNTER 2018-05-09 11:52 | Emergency (ER) | payer MEDICAID ==
[~2018-05-09] VITALS: Ht 170.2 cm; Wt 69.4 kg
[~2018-05-09 11:52] MED LIST changes: +ATIVAN2 MG ORAL
[2018-05-09 12:36] VITALS: BP 154/76
[2018-05-09 13:51] LABS: APPEARANCE,URINE CLEAR; BILIRUBIN, URINE NEGATIVE (NEGATIVE); COLOR,URINE PALE YELLOW; GLUCOSE, URINE (UA) NEGATIVE (NEGATIVE); KETONES,URINE NEGATIVE (NEGATIVE); LEUKOCYTE ESTERASE ,URINE 2+ (NEGATIVE); NITRITE,URINE NEGATIVE (NEGATIVE); PH,URINE 5 (4.5-8.0); PROTEIN,URINE NEGATIVE (NEGATIVE); UROBILINOGEN,URINE NORMAL MG/DL (0.0-1.0)
[2018-05-09 13:56] LABS: BASOPHILS % (AUTO) 1.4 % (0.0-2.0); HEMATOCRIT 40.4 % (37.0-47.0); HEMOGLOBIN 13.6 G/DL (12.0-16.0); LYMPHOCYTES % (AUTO) 25.9 % (20.0-45.0); MEAN CORPUSCULAR VOLUME 87 FL (80-99); MONOCYTES % (AUTO) 5.9 % (1.0-10.0); NEUTROPHILS % (AUTO) 63.8 % (45.0-75.0); PLATELET COUNT 355 K/UL (150-450); RED BLOOD COUNT 4.63 M/UL (4.20-5.40); RED CELL DISTRIBUTION WIDTH 11.2 % (11.6-14.8); WHITE BLOOD COUNT 9.7 K/UL (4.8-10.8)
[2018-05-09 14:01] LABS: ANION GAP 10 mmol/L (5-15); BLOOD UREA NITROGEN 13 mg/dL (7-18); CALCIUM 9.8 MG/DL (8.5-10.1); CARBON DIOXIDE 28 MMOL/L (21-32); CHLORIDE 100 MMOL/L (98-107); CREATININE 0.6 MG/DL (0.55-1.30); POTASSIUM 4.5 MMOL/L (3.5-5.1); SODIUM 138 MMOL/L (136-145)
[2018-05-09 14:06] LABS: ALANINE AMINOTRANSFERASE 37 U/L (12-78); ALBUMIN 3.7 G/DL (3.4-5.0); ALBUMIN/GLOBULIN RATIO 0.7 (1.0-2.7); ALKALINE PHOSPHATASE 89 U/L (46-116); ASPARTATE AMINO TRANSFERASE 30 U/L (15-37); BILIRUBIN,TOTAL 0.5 MG/DL (0.2-1.0)
--- NOTE | 2018-05-09 14:33 | Emergency Room Report ---
History of Present Illness General Chief Complaint: Abdominal Pain Source: Patient Present Illness HPI 48-year-old female presents to the emergency department complaining of having 8 out of 10 in severity pain in the right upper quadrant that she describes as a constant dull male lying aches 3 days. Patient reports that this has happened several times in the past over the last few months. She reports pain worse after eating. She also reports increased in belching lately. States pain does not radiate. 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 Patient states that she on occasion has nausea vomiting. Patient states that she has some nausea today. She denies history of acid reflux she reports history of diverticulitis she denies abdominal tenderness, constipation, diarrhea. Patient reports that on occasion when she does vomit that it is bilious in consistency denies blood in the vomit denies blood in the stool or dark tarry stools. She denies recent head injury, fevers , chills or trauma to the abdomen. She denies dysuria, hematuria, urinary frequency or urgency. Denies TROTTER, dizziness, weakness or paresthesias. Denies recent travel or ill contacts. Allergies: Coded Allergies: HYDROMORPHONE (Verified Allergy, Intermediate, Anaphylaxis, 06/22/14) sob, itching and closing throat IODINE (Verified Allergy, Mild, Rash, 06/06/13) RASPBERRY (Verified Allergy, Unknown, 04/03/16) SHELLFISH DERIVED (Verified Allergy, Unknown, 04/03/16) WHEAT (Verified Allergy, Unknown, 09/21/15) OSELTAMIVIR (Verified Adverse Reaction, Mild, 07/04/16) Nausea, vomiting, stomach discomfort and diarrhea Patient History Past Medical History: see triage record Past Surgical History: none Pertinent Family History: none Last Menstrual Period: total hystrectomy Now: No Reviewed Nursing Documentation: PMH: Agreed; PSxH: Agreed Nursing Documentation-PMH Past Medical History: No History, Except For Hx Cardiac Problems: No - hysterectomy 2012, Sinusitis Hx Hypertension: Yes Hx Pacemaker: No Hx Asthma: No Hx COPD: No Hx Diabetes: No Hx Gastrointestinal Problems: Yes - Diverticulitis Hx Dialysis: No Hx Neurological Problems: No Hx Cerebrovascular Accident: No Hx Seizures: No Hx Dizziness: Yes Review of Systems All Other Systems: negative except mentioned in HPI Physical Exam Vital Signs Date Time Temp Pulse Resp B/P (MAP) Pulse Ox O2 Delivery O2 Flow Rate FiO2 05/09/18 12:07 98.6 74 14 156/85 05/09/18 12:36 100 Room Air Sp02 EP Interpretation: reviewed, normal General Appearance: no apparent distress, alert, GCS 15, non-toxic Head: normocephalic, atraumatic Eyes: bilateral eye normal inspection, bilateral eye PERRL ENT: hearing grossly normal, normal voice Neck: full range of motion Respiratory: chest non-tender, lungs clear, normal breath sounds, no wheezing, speaking full sentences Cardiovascular #1: regular rate, rhythm Gastrointestinal: normal bowel sounds, soft, non-distended, no guarding, no hernia, other - some mild epigastric and RUQ ttp to very deep palpation, but pt. does not grimmace or guard just reports subjectively. Rectal: deferred Genitourinary: normal inspection, no CVA tenderness Musculoskeletal: back normal, gait/station normal, normal range of motion, non- tender Neurologic: alert, oriented x3, responsive, motor strength/tone normal, sensory intact, speech normal, grossly normal Psychiatric: judgement/insight normal Skin: normal color, no rash, warm/dry, well hydrated Medical Decision Making PA Attestation Dr. Servin is my supervising Physician whom patient management has been discussed with. Diagnostic Impression: Primary Impression: Abdominal pain Qualified Codes: R10.11 - Right upper quadrant pain ER Course 48-year-old female presents to the emergency department complaining of having 8 out of 10 in severity pain in the right upper quadrant that she describes as a constant dull male lying aches 3 days. Patient reports that this has happened several times in the past over the last few months. She reports pain worse after eating. She also reports increased in belching lately. States pain does not radiate. 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 Patient states that she on occasion has nausea vomiting. Patient states that she has some nausea today. She denies history of acid reflux she reports history of diverticulitis she denies abdominal tenderness, constipation, diarrhea. Patient reports that on occasion when she does vomit that it is bilious in consistency denies blood in the vomit denies blood in the stool or dark tarry stools. She denies recent head injury, fevers , chills or trauma to the abdomen. She denies dysuria, hematuria, urinary frequency or urgency. Denies TROTTER, dizziness, weakness or paresthesias. Denies recent travel or ill contacts. Ddx considered but are not limited to Diverticulitis, acute appy, diarrhea,UC, PUD, GE, pancreatitis, gallstone Vital signs: are WNL, pt. is afebrile H&PE are most consistent with gastritis, will investigate biliary and Pancrease with lab work, if labs indicate US then imaging will be pursued, however from pt. PE I do not suspect acute inflammation or obstruction. Pt. non-toxic in appearance and NAD. pt. is primarily concerned at how long she has been having these symptoms ( months). ORDERS: -CBC, CMP, lipase, UA: All unremarkable- d/w pt. the results. ED INTERVENTIONS: -- Pepcid + zofran 4mm PO -I do not identify an emergent condition at this time. With current presentation , pt. is stable for close outpatient follow up and conservative treatment. D/ w pt. to return promptly to ED with worsening or new symptoms.- Pt. verbalizes' understanding and agreement with proposed treatment plan. DISCHARGE: At this time pt. is stable for d/c to home. Will provide printed patient care instructions, and any necessary prescriptions. Care plan and follow up instructions have been discussed with the patient prior to discharge. Labs Test 05/09/18 13:25 05/09/18 13:35 Urine Color Pale yellow Urine Appearance Clear Urine pH 5 (4.5-8.0) Urine Specific [place] 1.010 (1.005-1.035) Urine Protein Negative (NEGATIVE) Urine Glucose (UA) Negative (NEGATIVE) Urine Ketones Negative (NEGATIVE) Urine Blood 3+ (NEGATIVE) Urine Nitrite Negative (NEGATIVE) Urine Bilirubin Negative (NEGATIVE) Urine Urobilinogen Normal MG/DL (0.0-1.0) Urine Leukocyte Esterase 2+ (NEGATIVE) Urine RBC 2-4 /HPF (0 - 2) Urine WBC 0-2 /HPF (0 - 2) Urine Squamous Epithelial Cells Occasional /LPF Urine Bacteria Occasional /HPF (NONE) White Blood Count 9.7 K/UL (4.8-10.8) Red Blood Count 4.63 M/UL (4.20-5.40) Hemoglobin 13.6 G/DL (12.0-16.0) Hematocrit 40.4 % (37.0-47.0) Mean Corpuscular Volume 87 FL (80-99) Mean Corpuscular Hemoglobin 29.4 PG (27.0-31.0) Mean Corpuscular Hemoglobin Concent 33.7 G/DL (32.0-36.0) Red Cell Distribution Width 11.2 % (11.6-14.8) Platelet Count 355 K/UL (150-450) Mean Platelet Volume 7.7 FL (6.5-10.1) Neutrophils (%) (Auto) 63.8 % (45.0-75.0) Lymphocytes (%) (Auto) 25.9 % (20.0-45.0) Monocytes (%) (Auto) 5.9 % (1.0-10.0) Eosinophils (%) (Auto) 3.0 % (0.0-3.0) Basophils (%) (Auto) 1.4 % (0.0-2.0) Sodium Level 138 MMOL/L (136-145) Potassium Level 4.5 MMOL/L (3.5-5.1) Chloride Level 100 MMOL/L (98-107) Carbon Dioxide Level 28 MMOL/L (21-32) Anion Gap 10 mmol/L (5-15) Blood Urea Nitrogen 13 mg/dL (7-18) Creatinine 0.6 MG/DL (0.55-1.30) Estimat Glomerular Filtration Rate > 60 mL/min (>60) Glucose Level 96 MG/DL (74-106) Calcium Level 9.8 MG/DL (8.5-10.1) Total Bilirubin 0.5 MG/DL (0.2-1.0) Aspartate Amino Transf (AST/SGOT) 30 U/L (15-37) Alanine Aminotransferase (ALT/SGPT) 37 U/L (12-78) Alkaline Phosphatase 89 U/L (46-116) Total Protein 9.2 G/DL (6.4-8.2) Albumin 3.7 G/DL (3.4-5.0) Globulin 5.5 g/dL Albumin/Globulin Ratio 0.7 (1.0-2.7) Lipase 133 U/L (73-393) Last Vital Signs Date Time Temp Pulse Resp B/P (MAP) Pulse Ox O2 Delivery O2 Flow Rate FiO2 11/29/18 12:36 76 18 Room Air 05/09/18 12:36 98.6 154/76 100 Disposition: HOME, SELF-CARE Condition: Stable Scripts Omeprazole (OMEPRAZOLE) 40 Mg Capsule.dr 40 MG ORAL DAILY for 14 Days, #14 CAP Prov: Koki Richardson 05/09/18 Ondansetron* (ZOFRAN*) 4 Mg Tablet 4 MG ORAL Q6H PRN for Nausea & Vomiting, #20 TAB Prov: Koki Richardson 05/09/18 Referrals: Roland Monsalve MD (PCP) Patient Instructions: Abdominal Pain, Adult Additional Instructions: Take medications as directed. Follow up with a Primary Care Provider for GI Referral in 3-5 days, even if your symptoms have resolved. --Please review list of primary care clinics, if you do not already have a primary care provider Return sooner to ED if new symptoms occur, or current symptoms become worse. - Please note that this Emergency Department Report was dictated using [employer] former technology software, occasionally this can lead to erroneous entry secondary to interpretation by the dictation equipment. Koki Richardson May 09, 2018 14:33
[2018-05-09] MEDS ORDERED: ZOFRAN4 M3 ORAL (14:49)
[2018-05-09] MEDS ORDERED: OMEPRAZOLE40 M1 ORAL (14:49)
[2018-05-09 15:00] VITALS: BP 132/68
== END 2018-05-09 15:02 | disposition home or self-care (01) ==
LOC: EMR 13:48
DX: R10.11 Right upper quadrant pain (principal); I10 Essential (primary) hypertension; K57.92 Diverticulitis of intestine, part unspecified, without perforation or abscess without bleeding; R42 Dizziness and giddiness; Z91.018 Allergy to other foods; Z91.048 Other nonmedicinal substance allergy status; Z88.5 Allergy status to narcotic agent; Z88.8 Allergy status to other drugs, medicaments and biological substances; Z91.013 Allergy to seafood; Z90.710 Acquired absence of both cervix and uterus
CPT/HCPCS: 36415; 80053; 81003; 83690; 85025; 99283

== ENCOUNTER 2018-05-20 10:33 | Emergency (ER) | payer MEDICAID ==
[~2018-05-20] VITALS: Ht 170.2 cm; Wt 69.4 kg
[~2018-05-20 10:33] MED LIST changes: +OMEPRAZOLE40 M1 ORAL; +ZOFRAN4 M3 ORAL
[2018-05-20 11:01] VITALS: BP 138/94
[2018-05-20] MEDS ORDERED: AUGMENTIN 875-1 EAC1 ORAL (11:12)
[2018-05-20 11:22] VITALS: BP 135/92
--- NOTE | 2018-05-21 07:54 | Emergency Room Report ---
History of Present Illness General Chief Complaint: Laceration Source: Patient Present Illness HPI 48-year-old female presents ED for evaluation. States that she cut her left index finger 3 days ago. States that she does not know how she injured her finger. Tetanus is up-to-date. States that she applied some ointment but states that it is now painful and swollen. Throbbing, 7 out of 10, nonradiating. Denies fevers or chills. No other aggravating relieving factors. Denies any other associated symptoms Allergies: Coded Allergies: HYDROMORPHONE (Verified Allergy, Intermediate, Anaphylaxis, 06/22/14) sob, itching and closing throat IODINE (Verified Allergy, Mild, Rash, 06/06/13) RASPBERRY (Verified Allergy, Unknown, 04/03/16) SHELLFISH DERIVED (Verified Allergy, Unknown, 04/03/16) WHEAT (Verified Allergy, Unknown, 09/21/15) OSELTAMIVIR (Verified Adverse Reaction, Mild, 07/04/16) Nausea, vomiting, stomach discomfort and diarrhea Patient History Past Medical History: HTN, other - diverticulitis Past Surgical History: none Pertinent Family History: none Social History: Denies: smoking, alcohol use, drug use Now: No Immunizations: UTD Reviewed Nursing Documentation: PMH: Agreed; PSxH: Agreed Nursing Documentation-PMH Past Medical History: No History, Except For Hx Cardiac Problems: No - hysterectomy 2012, Sinusitis Hx Hypertension: Yes Hx Pacemaker: No Hx Asthma: No Hx COPD: No Hx Diabetes: No Hx Gastrointestinal Problems: Yes - Diverticulitis Hx Dialysis: No Hx Neurological Problems: No Hx Cerebrovascular Accident: No Hx Seizures: No Hx Dizziness: Yes Review of Systems All Other Systems: negative except mentioned in HPI Physical Exam Vital Signs Date Time Temp Pulse Resp B/P (MAP) Pulse Ox O2 Delivery O2 Flow Rate FiO2 05/20/18 10:48 98.2 88 17 140/94 98 Room Air Sp02 EP Interpretation: reviewed, normal General Appearance: no apparent distress, alert, GCS 15, non-toxic Head: normocephalic Eyes: bilateral eye normal inspection, bilateral eye PERRL ENT: normal ENT inspection Neck: normal inspection Respiratory: normal inspection Cardiovascular #1: normal inspection Gastrointestinal: normal inspection Rectal: deferred Genitourinary: no CVA tenderness Musculoskeletal: back normal, gait/station normal, normal range of motion, swelling - erythema/swelling PIP joint L index finger. no fluctuance, tender Neurologic: alert, oriented x3, responsive, motor strength/tone normal, sensory intact, speech normal Psychiatric: normal inspection Skin: normal inspection Lymphatic: normal inspection Medical Decision Making Diagnostic Impression: Primary Impression: Infected abrasion ER Course Hospital Course 48-year-old female presents to ED with redness, swelling to L index finger Differential diagnoses include: Cellulitis, dermatitis, insect bite, abscess Clinical course Patient placed on stretcher. After initial history, physical exam reveals a female in no acute distress. On exam there is an abrasion with surrounding erythema and induration to the PIP joint. There is no fluctuance. There is full range of motion passively. Unlikely infection to the joint Discussed with patient. We will prescribe antibiotics. Close follow-up with PMD. Diagnosis - infected abrasion stable and discharged to home with prescription for augmentin. warm soaks. Instructed to followup with PMD. Instructed return to ED if symptoms recur or worsen Last Vital Signs Date Time Temp Pulse Resp B/P (MAP) Pulse Ox O2 Delivery O2 Flow Rate FiO2 05/20/18 11:22 98.7 85 16 135/92 98 Room Air Status: improved Disposition: HOME, SELF-CARE Condition: Stable Scripts Amoxicillin/Potassium Clav 875-125* (AUGMENTIN 875-125 TABLET*) 1 Each Tablet 1 TAB ORAL TWICE A DAY, #14 TAB Prov: Ector Felix MD 05/20/18 Referrals: NON PHYSICIAN (PCP) Patient Instructions: Abrasion, [id number] Ector Felix MD May 21, 2018 07:54
== END 2018-05-20 11:26 | disposition home or self-care (01) ==
LOC: EMR 11:12
DX: S60.411A Abrasion of left index finger, initial encounter (principal); I10 Essential (primary) hypertension; Z90.710 Acquired absence of both cervix and uterus; K57.90 Diverticulosis of intestine, part unspecified, without perforation or abscess without bleeding; Z88.6 Allergy status to analgesic agent; Z91.041 Radiographic dye allergy status; Z91.013 Allergy to seafood; Z91.018 Allergy to other foods; X58.XXXA Exposure to other specified factors, initial encounter; Y92.9 Unspecified place or not applicable
CPT/HCPCS: 99282

== ENCOUNTER 2018-06-19 14:05 | Emergency (ER) | payer MEDICAID ==
[~2018-06-19] VITALS: Ht 170.2 cm; Wt 70.8 kg
[2018-06-19 14:14] VITALS: BP 124/74
--- NOTE | 2018-06-19 14:14 | NUR ---
ED Nurse Note: Pt QUINTONO x4 present at ER c/o coughing since 06/10/2018 and today she notied blood in sputum. VSS, remaining calm with initial assessment.
[2018-06-19 14:32] LABS: BILIRUBIN, URINE NEGATIVE (NEGATIVE); COLOR,URINE PALE YELLOW; GLUCOSE, URINE (UA) NEGATIVE (NEGATIVE); KETONES,URINE NEGATIVE (NEGATIVE); LEUKOCYTE ESTERASE ,URINE 1+ (NEGATIVE); NITRITE,URINE NEGATIVE (NEGATIVE); PH,URINE 5 (4.5-8.0); PROTEIN,URINE NEGATIVE (NEGATIVE); UROBILINOGEN,URINE NORMAL MG/DL (0.0-1.0)
[2018-06-19 14:37] LABS: APPEARANCE,URINE SLIGHTLY CLOUDY
[2018-06-19] MEDS ORDERED: MULTI VITAMIN1 EACH ORAL (14:41)
[2018-06-19] MEDS ORDERED: hemp oil (14:43)
[2018-06-19 15:03] LABS: BASOPHILS % (AUTO) 1.1 % (0.0-2.0); EOSINOPHILS % (AUTO) 3.8 % (0.0-3.0); HEMATOCRIT 38.3 % (37.0-47.0); HEMOGLOBIN 12.9 G/DL (12.0-16.0); LYMPHOCYTES % (AUTO) 24.1 % (20.0-45.0); MEAN CORPUSCULAR VOLUME 91 FL (80-99); MONOCYTES % (AUTO) 7.1 % (1.0-10.0); NEUTROPHILS % (AUTO) 63.8 % (45.0-75.0); PLATELET COUNT 345 K/UL (150-450); RED BLOOD COUNT 4.22 M/UL (4.20-5.40); RED CELL DISTRIBUTION WIDTH 11.7 % (11.6-14.8); WHITE BLOOD COUNT 8.1 K/UL (4.8-10.8)
[2018-06-19 15:19] LABS: ANION GAP 9 mmol/L (5-15); BLOOD UREA NITROGEN 14 mg/dL (7-18); CALCIUM 9.8 MG/DL (8.5-10.1); CARBON DIOXIDE 30 MMOL/L (21-32); CHLORIDE 102 MMOL/L (98-107); CREATININE 0.7 MG/DL (0.55-1.30); POTASSIUM 3.9 MMOL/L (3.5-5.1); SODIUM 140 MMOL/L (136-145)
[2018-06-19 15:24] LABS: ALANINE AMINOTRANSFERASE 29 U/L (12-78); ALBUMIN 3.8 G/DL (3.4-5.0); ALBUMIN/GLOBULIN RATIO 0.8 (1.0-2.7); ALKALINE PHOSPHATASE 87 U/L (46-116); ASPARTATE AMINO TRANSFERASE 16 U/L (15-37); BILIRUBIN,TOTAL 0.3 MG/DL (0.2-1.0)
--- NOTE | 2018-06-19 15:30 | NUR ---
ED Nurse Note: Pt stable with stable VS and ambulated to bathroom.
--- NOTE | 2018-06-19 15:38 | NUR ---
ED Nurse Note: Pt came back from bathroom. Pt reported that she urinated and it was yellow and clear.
--- NOTE | 2018-06-19 15:41 | Diagnostic Imaging Report ---
Indication: Cough Technique: One view of the chest Comparison: 07/04/2016 Findings: Heart is upper limits normal in size. Lungs and pleural spaces are clear. No significant interim change Impression: Negative
--- NOTE | 2018-06-19 15:50 | NUR ---
ED Nurse Note: Pt was told about her lab results came back normal, no procedure needed besides PO ATB from ER MD.
--- NOTE | 2018-06-19 15:56 | Emergency Room Report ---
History of Present Illness General Chief Complaint: General Complaint Source: Patient Present Illness HPI She states she has had a cough for about a week and a half. She states that she has had sputum production but it was clear. She states that over the past 24 hours she has developed a thicker sputum with streaks of blood. She denies fever or chills. She denies chest pain or shortness of breath. She denies abdominal pain. She denies any other bleeding. She denies headache or neck pain. She has no other complaints. Allergies: Coded Allergies: HYDROMORPHONE (Verified Allergy, Intermediate, Anaphylaxis, 06/22/14) sob, itching and closing throat IODINE (Verified Allergy, Mild, Rash, 06/06/13) RASPBERRY (Verified Allergy, Unknown, 04/03/16) SHELLFISH DERIVED (Verified Allergy, Unknown, 04/03/16) WHEAT (Verified Allergy, Unknown, 09/21/15) OSELTAMIVIR (Verified Adverse Reaction, Mild, 07/04/16) Nausea, vomiting, stomach discomfort and diarrhea Patient History Past Medical History: see triage record, HTN, psych hx Past Surgical History: hysterectomy Social History: Denies: smoking, alcohol use, drug use Last Menstrual Period: hys Now: No Reviewed Nursing Documentation: PMH: Agreed; PSxH: Agreed Nursing Documentation-PMH Past Medical History: No History, Except For Hx Cardiac Problems: Yes - ovarian cysts Hx Hypertension: Yes Hx Pacemaker: No Hx Asthma: No Hx COPD: No Hx Diabetes: No Hx Gastrointestinal Problems: Yes - diverticulitis Hx Dialysis: No Hx Neurological Problems: No Hx Cerebrovascular Accident: No Hx Seizures: No Hx Dizziness: Yes Review of Systems All Other Systems: negative except mentioned in HPI Physical Exam Vital Signs Date Time Temp Pulse Resp B/P (MAP) Pulse Ox O2 Delivery O2 Flow Rate FiO2 06/19/18 14:10 98.2 84 16 146/85 96 06/19/18 14:14 Room Air 99 Sp02 EP Interpretation: reviewed, normal General Appearance: no apparent distress, alert, GCS 15, non-toxic Head: normocephalic, atraumatic Eyes: bilateral eye normal inspection, bilateral eye PERRL ENT: hearing grossly normal, normal pharynx, no angioedema, normal voice Neck: full range of motion, supple/symm/no masses Respiratory: chest non-tender, lungs clear, normal breath sounds, speaking full sentences Cardiovascular #1: regular rate, rhythm, no edema Gastrointestinal: normal bowel sounds, non tender, soft, non-distended, no guarding, no rebound Rectal: deferred Musculoskeletal: back normal, gait/station normal, normal range of motion, non- tender Neurologic: alert, oriented x3, responsive, motor strength/tone normal, sensory intact, speech normal Psychiatric: judgement/insight normal, memory normal, mood/affect normal, no suicidal/homicidal ideation Skin: normal color, no rash, warm/dry, well hydrated Medical Decision Making Diagnostic Impression: Primary Impression: Bronchitis ER Course This patient has a clinical presentation with upper respiratory tract infection/ Bronchitis. The evaluation was very reassuring with a normal lung exam, no respiratory distress, normal pulse oximetry. I am not concerned for pneumonia in this patient. However, there is thick sputum and the patient has had symptoms for almost 2 weeks. I will go ahead and with a course of antibiotics. No emergency medical condition was identified. Laboratory Tests Test 06/19/18 13:30 06/19/18 14:40 Urine Color Pale yellow Urine Appearance Slightly cloudy Urine pH 5 (4.5-8.0) Urine Specific [place] 1.015 (1.005-1.035) Urine Protein Negative (NEGATIVE) Urine Glucose (UA) Negative (NEGATIVE) Urine Ketones Negative (NEGATIVE) Urine Blood 4+ (NEGATIVE) H Urine Nitrite Negative (NEGATIVE) Urine Bilirubin Negative (NEGATIVE) Urine Urobilinogen Normal MG/DL (0.0-1.0) Urine Leukocyte Esterase 1+ (NEGATIVE) H Urine RBC 5-10 /HPF (0 - 2) H Urine WBC 2-4 /HPF (0 - 2) Urine Squamous Epithelial Cells Few /LPF (NONE/OCC) Urine Bacteria Few /HPF (NONE) White Blood Count 8.1 K/UL (4.8-10.8) Red Blood Count 4.22 M/UL (4.20-5.40) Hemoglobin 12.9 G/DL (12.0-16.0) Hematocrit 38.3 % (37.0-47.0) Mean Corpuscular Volume 91 FL (80-99) Mean Corpuscular Hemoglobin 30.7 PG (27.0-31.0) Mean Corpuscular Hemoglobin Concent 33.8 G/DL (32.0-36.0) Red Cell Distribution Width 11.7 % (11.6-14.8) Platelet Count 345 K/UL (150-450) Mean Platelet Volume 7.6 FL (6.5-10.1) Neutrophils (%) (Auto) 63.8 % (45.0-75.0) Lymphocytes (%) (Auto) 24.1 % (20.0-45.0) Monocytes (%) (Auto) 7.1 % (1.0-10.0) Eosinophils (%) (Auto) 3.8 % (0.0-3.0) H Basophils (%) (Auto) 1.1 % (0.0-2.0) Sodium Level 140 MMOL/L (136-145) Potassium Level 3.9 MMOL/L (3.5-5.1) Chloride Level 102 MMOL/L (98-107) Carbon Dioxide Level 30 MMOL/L (21-32) Anion Gap 9 mmol/L (5-15) Blood Urea Nitrogen 14 mg/dL (7-18) Creatinine 0.7 MG/DL (0.55-1.30) Estimate Glomerular Filtration Rate > 60 mL/min (>60) Glucose Level 97 MG/DL (74-106) Calcium Level 9.8 MG/DL (8.5-10.1) Total Bilirubin 0.3 MG/DL (0.2-1.0) Aspartate Amino Transferase (AST) 16 U/L (15-37) Alanine Aminotransferase (ALT) 29 U/L (12-78) Alkaline Phosphatase 87 U/L (46-116) Total Protein 8.4 G/DL (6.4-8.2) H Albumin 3.8 G/DL (3.4-5.0) Globulin 4.6 g/dL Albumin/Globulin Ratio 0.8 (1.0-2.7) L EKG Diagnostic Results Rate: normal Rhythm: NSR ST Segments: no acute changes Rhythm Strip Diag. Results EP Interpretation: yes Rate: 70's Rhythm: NSR, no PVC's, no ectopy Chest X-Ray Diagnostic Results Chest X-Ray Diagnostic Results : Chest X-Ray Ordered: Yes # of Views/Limited/Complete: 1 View Indication: Other - cough EP Interpretation: Yes Interpretation: no consolidation, no effusion, no pneumothorax, no acute cardiopulmonary disease Impression: No acute disease Electronically Signed by: Jennifer Reyes DO Last Vital Signs Date Time Temp Pulse Resp B/P (MAP) Pulse Ox O2 Delivery O2 Flow Rate FiO2 06/19/18 14:14 98.0 78 17 124/74 98 Room Air 06/19/18 14:14 99 Status: improved Disposition: HOME, SELF-CARE Condition: Improved Referrals: Roland Monsalve MD (PCP) Jennifer Reyes DO Jun 19, 2018 15:56
[2018-06-19] MEDS ORDERED: TESSALON PERLE100 MG ORAL (15:58)
[2018-06-19] MEDS ORDERED: ZITHROMAX250 MG ORAL (15:58)
[2018-06-19 16:10] VITALS: BP 141/85
--- NOTE | 2018-06-19 16:10 | NUR ---
ED Nurse Note: Pt was cleared to be discharged from [facility]. Pt received discharge instruction and prescriptions. Pt verbalized understanding. VSS, no coughing, no wheezing, no SOB noted. ID band and IV removed.
== END 2018-06-19 16:10 | disposition home or self-care (01) ==
LOC: EMR 14:40
DX: J40 Bronchitis, not specified as acute or chronic (principal); I10 Essential (primary) hypertension; Z88.6 Allergy status to analgesic agent; Z91.013 Allergy to seafood; Z91.018 Allergy to other foods
CPT/HCPCS: 36415; 71045; 80053; 81003; 85025; 93005; 96360; 99284

== ENCOUNTER 2018-06-27 06:16 | Emergency (ER) | payer MEDICAID ==
[~2018-06-27] VITALS: Ht 170.2 cm; Wt 70.3 kg
[~2018-06-27 06:16] MED LIST changes: +MULTI VITAMIN1 EACH ORAL; +TESSALON PERLE100 MG ORAL; +ZITHROMAX250 MG ORAL; +hemp oil
--- NOTE | 2018-06-27 06:21 | NUR ---
ED Nurse Note: Pt walked into ER stating that she has lower back pain that started 2 days ago. Pt is AO x 4times, VSS, on room air no distress. DONNELLD seen Pt at bedside.
[2018-06-27] MEDS ORDERED: NKM (06:24)
--- NOTE | 2018-06-27 07:10 | NUR ---
ED Nurse Note: patient came into the ED, she drove herself here from home , c/o lower back pain and she could not sleep with pain. lower back pain that started 2 days ago. urine specimen collected and sent down to the lab.
--- NOTE | 2018-06-27 07:24 | NUR ---
HAND-OFF: Report given to SRAVANI Kauffman.
[2018-06-27 07:43] VITALS: BP 121/72
[2018-06-27 07:51] LABS: APPEARANCE,URINE CLEAR; COLOR,URINE YELLOW
[2018-06-27 07:52] LABS: BILIRUBIN, URINE NEGATIVE (NEGATIVE); GLUCOSE, URINE (UA) NEGATIVE (NEGATIVE); KETONES,URINE 3+ (NEGATIVE); NITRITE,URINE NEGATIVE (NEGATIVE); PROTEIN,URINE 1+ (NEGATIVE); UROBILINOGEN,URINE NORMAL MG/DL (0.0-1.0)
[2018-06-27 07:55] LABS: LEUKOCYTE ESTERASE ,URINE 1+ (NEGATIVE)
--- NOTE | 2018-06-27 07:57 | Emergency Room Report ---
History of Present Illness General Chief Complaint: Back Pain-No Injury Source: Patient Present Illness HPI This patient states that for the past 2 days she has had left sided flank pain. She has also had soreness in her upper back. She was seen at another hospital yesterday. A hospital in [facility]. She did bring and the results of her tests from this visit to the emergency department. She underwent a CT and has right sided hydronephrosis. She was also placed on Keflex for a urinary tract infection. She states that she did have a hysterectomy and has a history of a ureter injury that occurred during the hysterectomy. She does have a referral to a urologist from her primary care physician, Dr. Monsalve. She presents today because she has ongoing left flank pain. She states that this caused her to be very uncomfortable and has been unable to sleep for the past 2 days. She denies fever or chills. She denies weakness. She denies nausea or vomiting. She denies loss of bowel or bladder control. She denies recent illness. She has no other complaints. Allergies: Coded Allergies: HYDROMORPHONE (Verified Allergy, Intermediate, Anaphylaxis, 06/22/14) sob, itching and closing throat IODINE (Verified Allergy, Mild, Rash, 06/06/13) RASPBERRY (Verified Allergy, Unknown, 04/03/16) SHELLFISH DERIVED (Verified Allergy, Unknown, 04/03/16) WHEAT (Verified Allergy, Unknown, 09/21/15) OSELTAMIVIR (Verified Adverse Reaction, Mild, 07/04/16) Nausea, vomiting, stomach discomfort and diarrhea Patient History Past Medical History: see triage record Past Surgical History: hysterectomy, other - Ovarian cyst/tumor Social History: Denies: smoking, alcohol use, drug use Last Menstrual Period: 1998, post historectomy Now: No : 3 Para: 3 Reviewed Nursing Documentation: PMH: Agreed; PSxH: Agreed Nursing Documentation-PMH Hx Cardiac Problems: Yes - ovarian cysts Hx Hypertension: Yes Hx Pacemaker: No Hx Asthma: No Hx COPD: No Hx Diabetes: No Hx Gastrointestinal Problems: Yes - diverticulitis Hx Dialysis: No Hx Neurological Problems: No Hx Cerebrovascular Accident: No Hx Seizures: No Hx Dizziness: Yes Review of Systems All Other Systems: negative except mentioned in HPI Physical Exam Vital Signs Date Time Temp Pulse Resp B/P (MAP) Pulse Ox O2 Delivery O2 Flow Rate FiO2 1/17/19 06:20 97.9 70 15 120/69 99 Room Air Sp02 EP Interpretation: reviewed, normal General Appearance: no apparent distress, alert, GCS 15, non-toxic Head: normocephalic, atraumatic Eyes: bilateral eye normal inspection, bilateral eye PERRL ENT: hearing grossly normal, normal pharynx, no angioedema, normal voice Neck: full range of motion, supple/symm/no masses Respiratory: chest non-tender, lungs clear, normal breath sounds, no respiratory distress, no retraction, no accessory muscle use, speaking full sentences Cardiovascular #1: regular rate, rhythm, no edema Gastrointestinal: normal bowel sounds, non tender, soft, non-distended, no guarding, no rebound Rectal: deferred Musculoskeletal: gait/station normal, normal range of motion, tender - TTP along the L. paraspinal m. (reproduces sx with palpation) Neurologic: alert, oriented x3, responsive, motor strength/tone normal, sensory intact, speech normal Psychiatric: judgement/insight normal, memory normal, mood/affect normal, no suicidal/homicidal ideation Skin: normal color, no rash, warm/dry, well hydrated Medical Decision Making Diagnostic Impression: Primary Impression: Back pain Additional Impressions: Spasm of muscle of lower back Hematuria ER Course This patient has a known history of right hydroureter that has been documented previously. She is supposed to be following on with urology up to a year ago when I review the chart. She states that she is going to follow-up with urology now. She states that she does have a referral. The location of the symptoms are on the left flank and not the right flank. Also, the patient's symptoms are reproducible on palpation of the left paraspinal muscles. There are no red flags on physical exam or history that would make me concerned for underlying fracture. Therefore, I do not feel that I need to obtain imaging studies. The patient has pain with range of motion and has tenderness to palpation along the muscle. There is no evidence of compartment syndrome. There is no neurologic deficit. The patient was instructed on supportive home measures. No emergency medical condition was identified. The patient was given return precautions and followup instructions. Laboratory Tests Test 06/27/18 07:30 Urine Color Yellow Urine Appearance Clear Urine pH 6.0 (4.5-8.0) Urine Specific [place] 1.015 (1.005-1.035) Urine Protein 1+ (NEGATIVE) H Urine Glucose (UA) Negative (NEGATIVE) Urine Ketones 3+ (NEGATIVE) H Urine Blood 1+ (NEGATIVE) H Urine Nitrite Negative (NEGATIVE) Urine Bilirubin Negative (NEGATIVE) Urine Urobilinogen Normal MG/DL (0.0-1.0) Urine Leukocyte Esterase 1+ (NEGATIVE) H Urine RBC Pending Urine WBC Pending Urine Squamous Epithelial Cells Pending Urine Bacteria Pending Last Vital Signs Date Time Temp Pulse Resp B/P (MAP) Pulse Ox O2 Delivery O2 Flow Rate FiO2 06/27/18 06:20 97.9 70 15 120/69 99 Room Air Status: improved Disposition: HOME, SELF-CARE Condition: Improved Scripts Acetaminophen With Codeine (T#3) (TYLENOL #3 TAB*) Y Tab 1 TAB ORAL Q8H PRN for For Pain, #20 TAB Prov: Jennifer Reyes DO 06/27/18 Cyclobenzaprine Hcl* (FLEXERIL*) 10 Mg Tablet 10 MG ORAL TID PRN for Muscle Spasm, #20 TAB Prov: Jennifer Reyes DO 06/27/18 Lidocaine (Lidoderm) 1 Each Adh..patch 1 PATCH TOPIC see instructions, #7 PATCH 0 Refills Patch(es) may remain in place for up to 12 hours in any 24-hour period. Prov: Jennifer Reyes DO 06/27/18 Patient Instructions: Back Pain, Adult Additional Instructions: Please follow-up closely with urology as discussed. Jennifer Reyes DO Jun 27, 2018 07:57
[2018-06-27] MEDS ORDERED: CYCLOBENZAPRINE10 MG ORAL (07:58)
[2018-06-27] MEDS ORDERED: LIDODERM700 M1 TOPIC (07:58)
[2018-06-27] MEDS ORDERED: ACETAMINOPHEN-1 EAC1 ORAL (07:58)
--- NOTE | 2018-06-27 08:17 | NUR ---
ED Nurse Note: patient is being discharged, cleared by ERMD Dr. Reyes Discharge instructions/paper/prescriptions given, explained, patient verbalized understanding, received signature on the paper. ID band removed. patient ambulated out of ED with steady gait with all of her belongings.
[2018-06-27 08:22] VITALS: BP 121/72
== END 2018-06-27 08:17 | disposition home or self-care (01) ==
LOC: EMR 07:40
DX: M54.9 Dorsalgia, unspecified (principal); M62.830 Muscle spasm of back; R31.9 Hematuria, unspecified; R10.9 Unspecified abdominal pain; Z91.041 Radiographic dye allergy status; Z91.013 Allergy to seafood; Z91.018 Allergy to other foods; Z88.5 Allergy status to narcotic agent
CPT/HCPCS: 81003; 99283

== ENCOUNTER 2018-06-29 09:02 | Emergency (ER) | payer MEDICAID ==
[~2018-06-29] VITALS: Ht 170.2 cm; Wt 70.3 kg
[~2018-06-29 09:02] MED LIST changes: +LIDODERM700 M1 TOPIC
--- NOTE | 2018-06-29 09:24 | NUR ---
ED Nurse Note: Patient walked in c/o left upper lip cold sore x 1 day. Pt rates pain at 10/10. per pt tried peppermint oil, coconut oil, and neosporin to help with cold sore.
[2018-06-29 09:26] VITALS: BP 155/98
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
[2018-06-29] MEDS ORDERED: IBUPROFEN600 MG ORAL ×2 (09:39→09:52)
[2018-06-29] MEDS ORDERED: VALACYCLOVIR500 MG ORAL ×2 (09:39→09:51)
[2018-06-29] MEDS ORDERED: ABREVA2 GM TOPIC (09:39)
[2018-06-29 09:50] VITALS: BP 155/98
--- NOTE | 2018-06-29 09:50 | NUR ---
ED Nurse Note: pt was cleared for discharge by ashley. prescription and discharge instruction explained. pt is aox 4, pt able to verbalize understanding. id band removed. pt able to walk with steady gait. pt left with all belongings.
== END 2018-06-29 09:50 | disposition home or self-care (01) ==
LOC: EMR 09:35
DX: B00.1 Herpesviral vesicular dermatitis (principal); I10 Essential (primary) hypertension
CPT/HCPCS: 99282

== ENCOUNTER 2018-06-30 23:23 | Inpatient (IN) | payer MEDICAID ==
[~2018-06-30] VITALS: Ht 170.2 cm; Wt 70.3 kg
[~2018-06-30 23:23] MED LIST changes: +VALACYCLOVIR500 MG ORAL
--- NOTE | 2018-06-30 23:30 | NUR ---
ED Nurse Note: Pt has chest pain since this morning when she weak up. She c/o L chest pain transfer to back, and L shoulder, pain level 8/10. AO4. NAD. Attached to bedspring assembler. ERMD at bedside.
[2018-06-30 23:45] VITALS: BP 157/89
--- NOTE | 2018-06-30 23:54 | Emergency Room Report ---
History of Present Illness General Chief Complaint: Chest Pain Source: Patient Present Illness HPI Is a 48-year-old female with history hypertension. She presents with chief point of chest pain. Onset this morning. She said she felt pressure-like pain. Radiate to her left arm. Fell better now but was worried this was she came in. No nausea no vomiting. No diaphoresis. No exertional component. No shortness of breath. Never had this problem before. Allergies: Coded Allergies: HYDROMORPHONE (Verified Allergy, Intermediate, Anaphylaxis, 06/22/14) sob, itching and closing throat IODINE (Verified Allergy, Mild, Rash, 06/06/13) RASPBERRY (Verified Allergy, Unknown, 04/03/16) SHELLFISH DERIVED (Verified Allergy, Unknown, 04/03/16) WHEAT (Verified Allergy, Unknown, 09/21/15) OSELTAMIVIR (Verified Adverse Reaction, Mild, 07/04/16) Nausea, vomiting, stomach discomfort and diarrhea Patient History Past Medical History: HTN Past Surgical History: hysterectomy Pertinent Family History: other - CAD Social History: Denies: smoking Now: No Immunizations: other Reviewed Nursing Documentation: PMH: Agreed; PSxH: Agreed Nursing Documentation-PMH Past Medical History: No Stated History Hx Cardiac Problems: Yes - ovarian cysts Hx Hypertension: Yes Hx Pacemaker: No Hx Asthma: No Hx COPD: No Hx Diabetes: No Hx Gastrointestinal Problems: Yes - diverticulitis Hx Dialysis: No Hx Neurological Problems: No Hx Cerebrovascular Accident: No Hx Seizures: No Hx Dizziness: Yes Review of Systems Eye: Denies: eye pain, blurred vision ENT: Denies: ear pain, nose congestion, throat swelling Respiratory: Denies: cough, shortness of breath Cardiovascular: Reports: chest pain; Denies: palpitations Gastrointestinal: Denies: abdominal pain, diarrhea, nausea, vomiting Musculoskeletal: Denies: back pain, joint pain Skin: Denies: rash Neurological: Denies: headache, numbness Endocrine: Denies: increased thirst, increased urine Hematologic/Lymphatic: Denies: easy bruising All Other Systems: negative except mentioned in HPI Physical Exam Vital Signs Date Time Temp Pulse Resp B/P (MAP) Pulse Ox O2 Delivery O2 Flow Rate FiO2 06/30/18 23:29 98.2 83 20 157/89 97 Room Air vitals with high blood pressure Sp02 EP Interpretation: reviewed, normal General Appearance: well appearing, no apparent distress, alert Head: normocephalic, atraumatic Eyes: bilateral eye PERRL, bilateral eye EOMI ENT: hearing grossly normal, normal pharynx Neck: full range of motion, supple, no meningismus Respiratory: chest non-tender, lungs clear, normal breath sounds Cardiovascular #1: regular rate, rhythm, no murmur Gastrointestinal: normal bowel sounds, non tender, no mass, no organomegaly, no bruit, non-distended Musculoskeletal: back normal, gait/station normal, normal range of motion Psychiatric: mood/affect normal Skin: warm/dry Medical Decision Making Diagnostic Impression: Primary Impression: Chest pain Qualified Codes: R07.9 - Chest pain, unspecified Additional Impressions: Hypertension Qualified Codes: I10 - Essential (primary) hypertension UTI (urinary tract infection) Qualified Codes: N30.00 - Acute cystitis without hematuria ER Course This patient resents with chest pain going down her left arm. Pain-free here. Troponin is negative. Also very anxious and has multiple the this visit for complaints. She does have a risk factor of high blood pressure, obesity, age and family history. Will admit for rule out and further workup. I discussed the case with Dr. Monsalve who will admit. Lab Results Impression labs unremarkable EKG Diagnostic Results Rate: normal Rhythm: NSR ST Segments: no acute changes ASA given to the pt in ED: Yes - Patient refused Rhythm Strip Diag. Results Rhythm Strip Time: 01:26 EP Interpretation: yes Rate: 69 Rhythm: NSR, no PVC's, no ectopy Chest X-Ray Diagnostic Results Chest X-Ray Diagnostic Results : Chest X-Ray Ordered: Yes # of Views/Limited/Complete: 1 View Indication: Chest Pain EP Interpretation: Yes Interpretation: no consolidation, no effusion, no pneumothorax, no acute cardiopulmonary disease Impression: No acute disease Electronically Signed by: Darrius Erickson MD Last Vital Signs Date Time Temp Pulse Resp B/P (MAP) Pulse Ox O2 Delivery O2 Flow Rate FiO2 06/30/18 23:45 98.2 87 20 157/89 97 Room Air Status: improved Disposition: ADMITTED INPATIENT Condition: Serious Darrius Erickson MD Jun 30, 2018 23:54
[2018-06-30] MEDS: Aspirin Baby 81mg ORAL ONE (23:58)
[2018-07-01] VITALS (8 sets, daily range): BP systolic 138–155; BP diastolic 77–100
[2018-07-01] MEDS: Aspirin Baby 81mg ORAL ONE (00:05)
[2018-07-01 00:26] LABS: BASOPHILS % (AUTO) 1.5 % (0.0-2.0); EOSINOPHILS % (AUTO) 4.6 % (0.0-3.0); HEMATOCRIT 36.6 % (37.0-47.0); HEMOGLOBIN 12.5 G/DL (12.0-16.0); LYMPHOCYTES % (AUTO) 34.2 % (20.0-45.0); MEAN CORPUSCULAR VOLUME 90 FL (80-99); MONOCYTES % (AUTO) 6.1 % (1.0-10.0); NEUTROPHILS % (AUTO) 53.7 % (45.0-75.0); PLATELET COUNT 377 K/UL (150-450); RED BLOOD COUNT 4.09 M/UL (4.20-5.40); RED CELL DISTRIBUTION WIDTH 11.3 % (11.6-14.8); WHITE BLOOD COUNT 10.1 K/UL (4.8-10.8)
[2018-07-01 00:30] LABS: APPEARANCE,URINE CLEAR; BILIRUBIN, URINE NEGATIVE (NEGATIVE); COLOR,URINE PALE YELLOW; GLUCOSE, URINE (UA) NEGATIVE (NEGATIVE); KETONES,URINE NEGATIVE (NEGATIVE); LEUKOCYTE ESTERASE ,URINE 2+ (NEGATIVE); NITRITE,URINE NEGATIVE (NEGATIVE); PH,URINE 6.5 (4.5-8.0); PROTEIN,URINE NEGATIVE (NEGATIVE); UROBILINOGEN,URINE NORMAL MG/DL (0.0-1.0)
[2018-07-01 00:36] LABS: ANION GAP 7 mmol/L (5-15); BLOOD UREA NITROGEN 13 mg/dL (7-18); CALCIUM 9.8 MG/DL (8.5-10.1); CARBON DIOXIDE 32 MMOL/L (21-32); CHLORIDE 102 MMOL/L (98-107); CREATININE 0.7 MG/DL (0.55-1.30); POTASSIUM 3.8 MMOL/L (3.5-5.1); SODIUM 141 MMOL/L (136-145)
[2018-07-01 00:53] LABS: ALANINE AMINOTRANSFERASE 20 U/L (12-78); ALBUMIN 3.9 G/DL (3.4-5.0); ALBUMIN/GLOBULIN RATIO 0.8 (1.0-2.7); ALKALINE PHOSPHATASE 85 U/L (46-116); ASPARTATE AMINO TRANSFERASE 12 U/L (15-37); BILIRUBIN,TOTAL 0.5 MG/DL (0.2-1.0); CKMB 1.2 NG/ML (0.0-3.6); CREATINE KINASE 73 U/L (26-308)
[2018-07-01] MEDS ORDERED: cefTRIAXone 1 GM in NS 55 ML IVPB ONE (01:00)
--- NOTE | 2018-07-01 01:40 | NUR ---
TRANSFER TO FLOOR: Patient transferred to Telemetry 216-1 as ordered, per MD Gricel . Report given to SRAVANI Duval. Belongings list completed with receiving RN. Pt AO4. NAD.
--- NOTE | 2018-07-01 02:00 | NUR ---
NURSE NOTES: Got report from Mauricio LASSITER. Initial Assessment done. Pt says that she is feeling flush and feeling anxious and saying that it could have been from the hydralazine she took in the ER. V/S: BP:155/100 HR:100 T:98.3 R:18 O2:97. Called Dr. Monsalve and left a message. Awaiting orders. Continue to monitor.
--- NOTE | 2018-07-01 06:32 | NUR ---
NURSE NOTES: Pt more relaxed now. Pt sleeping in bed comfortably. No s/s of distress or discomfort noted. Says she feels a little better. Still awaiting for orders from Dr. Monsalve. continue to monitor.
--- NOTE | 2018-07-01 07:20 | NUR ---
HAND-OFF: Report given to sandra monson. endorsed plan of care.
--- NOTE | 2018-07-01 07:40 | NUR ---
NURSE NOTES: Received report from SRAVANI Gilliam. Patient in bed resting, SR with HR 92. Denies pain at this time. No active s/s cardiac, respiratory distress noticed at this time. Denies anxiety at this time. IV site asymptomatic, patent, intact. Bed in lowest position, side rails up x3, call light within reach. Will continue to monitor.
[2018-07-01] MEDS ORDERED: Cyclobenzaprine 10mg Tab ORAL PRN (10:45)
--- NOTE | 2018-07-01 12:50 | NUR ---
NURSE NOTES: Dr. 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 Per Dr. Barnes restrill 15mg PO HS prn, paxil 20 mg PO daily. Order entered, noted, and carried out. Will continue to monitor.
--- NOTE | 2018-07-01 13:04 | Consultation ---
History of Present Illness General Date patient seen: Jul 01, 2018 Chief Complaint: Chest Pain Present Illness HPI 48-year-old female with history hypertension, anxiety disorder presented to ER with chief point of chest pain. She said she felt pressure-like pain. Radiate to her left arm. Fell better now but was worried this was she came in. No nausea no vomiting. She is admitted to telemetry for further management. Allergies: Coded Allergies: HYDROMORPHONE (Verified Allergy, Intermediate, Anaphylaxis, 06/22/14) sob, itching and closing throat IODINE (Verified Allergy, Mild, Rash, 06/06/13) RASPBERRY (Verified Allergy, Unknown, 04/03/16) SHELLFISH DERIVED (Verified Allergy, Unknown, 04/03/16) WHEAT (Verified Allergy, Unknown, 09/21/15) OSELTAMIVIR (Verified Adverse Reaction, Mild, 07/04/16) Nausea, vomiting, stomach discomfort and diarrhea Medication History Scheduled Azithromycin* (Zithromax*), 250 MG ORAL see instructions Benzonatate* (Tessalon Perle*), 100 MG ORAL THREE TIMES A DAY Docosanol (Abreva), 1 INCH TOPIC TID Lidocaine (Lidoderm), 1 PATCH TOPIC see instructions Multivitamin (Multi Vitamin Daily), 1 TAB ORAL DAILY, (Reported) No Known Medications* (NKM - No Known Medications*), 0 ., (Reported) Valacyclovir Hcl* (Valtrex*), 2,000 MG ORAL TWICE A DAY Valacyclovir Hcl* (Valtrex*), 2,000 MG ORAL TWICE A DAY Scheduled PRN Acetaminophen With Codeine (T#3) (Tylenol #3 Tab*), 1 TAB ORAL Q8H PRN for For Pain Cyclobenzaprine Hcl* (Flexeril*), 10 MG ORAL TID PRN for Muscle Spasm Ibuprofen* (Motrin*), 600 MG ORAL Q8H PRN for For Pain Ibuprofen* (Motrin*), 600 MG ORAL Q8H PRN for For Pain Miscellaneous Medications [hemp oil], (Reported) Patient History Healthcare decision maker Resuscitation status Advanced Directive on File Past Medical/Surgical History Past Medical/Surgical History: (1) Cerebrovascular accident (CVA) (2) Chiari I malformation (3) Acute cervical radiculopathy (4) Ureteral stricture (5) diverticulitis (6) Hypertension Review of Systems Constitutional: Reports: no symptoms Eye: Reports: no symptoms Cardiovascular: Reports: chest pain Physical Exam General Appearance: WD/WN, no apparent distress Lines, tubes and drains: peripheral HEENT: normocephalic, atraumatic Neck: non-tender, normal alignment Respiratory/Chest: chest wall non-tender, lungs clear Breasts: no masses Cardiovascular/Chest: normal peripheral pulses, no JVD Abdomen: soft Genitourinary/Rectal: normal genital exam Last 24 Hour Vital Signs Date Time Temp Pulse Resp B/P (MAP) Pulse Ox O2 Delivery O2 Flow Rate FiO2 07/01/18 08:00 98.4 80 16 145/77 (99) 97 07/01/18 06:54 97.9 86 16 138/94 (109) 99 07/01/18 06:30 92 140/90 (107) 07/01/18 04:56 74 07/01/18 04:50 98.0 100 18 145/95 (112) 98 07/01/18 04:31 Room Air 07/01/18 02:00 98.3 100 18 155/100 (118) 98 07/01/18 01:40 98.2 87 20 157/89 97 Room Air 07/01/18 01:32 157/89 06/30/18 23:45 98.2 87 20 157/89 97 Room Air 06/30/18 23:45 83 20 Room Air 06/30/18 23:29 98.2 83 20 157/89 97 Room Air Intake and Output 06/30/18 07/01/18 19:00 07:00 Intake Total 55 ml Balance 55 ml Intake IV Total 55 ml # Voids 3 # Bowel Movements 1 Laboratory Tests Test 06/30/18 23:50 White Blood Count 10.1 K/UL (4.8-10.8) Red Blood Count 4.09 M/UL (4.20-5.40) L Hemoglobin 12.5 G/DL (12.0-16.0) Hematocrit 36.6 % (37.0-47.0) L Mean Corpuscular Volume 90 FL (80-99) Mean Corpuscular Hemoglobin 30.5 PG (27.0-31.0) Mean Corpuscular Hemoglobin Concent 34.1 G/DL (32.0-36.0) Red Cell Distribution Width 11.3 % (11.6-14.8) L Platelet Count 377 K/UL (150-450) Mean Platelet Volume 7.8 FL (6.5-10.1) Neutrophils (%) (Auto) 53.7 % (45.0-75.0) Lymphocytes (%) (Auto) 34.2 % (20.0-45.0) Monocytes (%) (Auto) 6.1 % (1.0-10.0) Eosinophils (%) (Auto) 4.6 % (0.0-3.0) H Basophils (%) (Auto) 1.5 % (0.0-2.0) Urine Color Pale yellow Urine Appearance Clear Urine pH 6.5 (4.5-8.0) Urine Specific [place] 1.010 (1.005-1.035) Urine Protein Negative (NEGATIVE) Urine Glucose (UA) Negative (NEGATIVE) Urine Ketones Negative (NEGATIVE) Urine Blood 3+ (NEGATIVE) H Urine Nitrite Negative (NEGATIVE) Urine Bilirubin Negative (NEGATIVE) Urine Urobilinogen Normal MG/DL (0.0-1.0) Urine Leukocyte Esterase 2+ (NEGATIVE) H Urine RBC 15-20 /HPF (0 - 2) H Urine WBC 5-10 /HPF (0 - 2) H Urine Squamous Epithelial Cells Moderate /LPF (NONE/OCC) H Urine Bacteria Few /HPF (NONE) Sodium Level 141 MMOL/L (136-145) Potassium Level 3.8 MMOL/L (3.5-5.1) Chloride Level 102 MMOL/L (98-107) Carbon Dioxide Level 32 MMOL/L (21-32) Anion Gap 7 mmol/L (5-15) Blood Urea Nitrogen 13 mg/dL (7-18) Creatinine 0.7 MG/DL (0.55-1.30) Estimat Glomerular Filtration Rate > 60 mL/min (>60) Glucose Level 102 MG/DL (74-106) Calcium Level 9.8 MG/DL (8.5-10.1) Total Bilirubin 0.5 MG/DL (0.2-1.0) Aspartate Amino Transf (AST/SGOT) 12 U/L (15-37) L Alanine Aminotransferase (ALT/SGPT) 20 U/L (12-78) Alkaline Phosphatase 85 U/L (46-116) Total Creatine Kinase 73 U/L (26-308) Creatine Kinase MB 1.2 NG/ML (0.0-3.6) Creatine Kinase MB Relative Index 1.6 Troponin I 0.005 ng/mL (0.000-0.056) Total Protein 8.5 G/DL (6.4-8.2) H Albumin 3.9 G/DL (3.4-5.0) Globulin 4.6 g/dL Albumin/Globulin Ratio 0.8 (1.0-2.7) L Height (Feet): 5 Height (Inches): 7.00 Weight (Pounds): 155 Medications Current Medications Medications (Trade) Dose Ordered Sig/Magaly Route PRN Reason Start Time Stop Time Status Last Admin Dose Admin Acetaminophen (Tylenol) 650 mg Q4H PRN ORAL Mild Pain/Temp > 100.5 07/01/18 10:45 07/31/18 10:44 07/01/18 11:59 Clonidine HCl (Catapres Tab) 0.1 mg Q6H PRN ORAL For High Blood Pressure 07/01/18 10:45 07/31/18 10:44 Cyclobenzaprine HCl (Flexeril) 10 mg Q8H PRN ORAL Muscle Spasm 07/01/18 10:45 07/31/18 10:44 Docosanol (Abreva) 1 gm TID TP 07/01/18 13:00 07/31/18 12:59 Ibuprofen (Motrin) 600 mg Q8H PRN ORAL For Pain 07/01/18 10:45 07/31/18 10:44 Lidocaine (Lidoderm 5% PATCH) 1 patch DAILY TDERMAL 07/01/18 10:45 07/31/18 10:44 07/01/18 11:52 Multivitamins (Multivitamins) 1 tab DAILY ORAL 07/01/18 10:45 07/31/18 10:44 07/01/18 11:51 Valacyclovir HCl (Valtrex) 2,000 mg Q12HR ORAL 07/01/18 12:00 07/31/18 11:59 Assessment/Plan Problem List: (1) ACS (acute coronary syndrome) ICD Codes: I24.9 - Acute ischemic heart disease, unspecified SNOMED: 022201954 (2) Anxiety ICD Codes: F41.9 - Anxiety disorder, unspecified SNOMED: 05875388 (3) Hypertension ICD Codes: I10 - Essential (primary) hypertension SNOMED: 92504305 Qualifiers: Qualified Codes: I10 - Essential (primary) hypertension (4) Ureteral stricture ICD Codes: N13.5 - Crossing vessel and stricture of ureter without hydronephrosis SNOMED: 71773760 (5) Chiari I malformation ICD Codes: G93.5 - Compression of brain SNOMED: 072373255 Assessment/Plan serial ekg, echo, cardiology to see renal US to rule out hydronephrosis psychiatry to see for anxiety. dvt prophylaxis symptomatic treatment. Khushi Barnes MD Jul 01, 2018 13:04
[2018-07-01] MEDS: Abreva 10% cream 2gm TP SCH ×2 (13:14→18:33)
--- NOTE | 2018-07-01 13:34 | Diagnostic Imaging Report ---
Indication: Reason For Exam: CP Technique: AP view of the chest Comparison: 06/19/2018 Findings: Heart size within the upper limits for normal but stable compared to prior exam allowing for differences in technique. Mediastinal contours are sharp. There is no focal airspace consolidation. No pleural effusion or pneumothorax. No acute osseous abnormality. Surgical clip again noted in the left upper quadrant. IMPRESSION: No radiographic evidence of acute cardiac pulmonary disease. No significant interval change compared to the prior exam.
[2018-07-01] MEDS ORDERED: Lexiscan 0.4mg/5ml syringe IV PRN (13:44)
--- NOTE | 2018-07-01 13:55 | History & Physical ---
History and Physical History & Physicial Dictated for Int Med no. [id number]. Roland Monsalve MD Jul 01, 2018 13:55
--- NOTE | 2018-07-01 13:58 | Cardiac Electrophysiology PN ---
Subjective Subjective [id number] Objective Last 24 Hour Vital Signs Date Time Temp Pulse Resp B/P (MAP) Pulse Ox O2 Delivery O2 Flow Rate FiO2 07/01/18 08:00 98.4 80 16 145/77 (99) 97 07/01/18 06:54 97.9 86 16 138/94 (109) 99 07/01/18 06:30 92 140/90 (107) 07/01/18 04:56 74 07/01/18 04:50 98.0 100 18 145/95 (112) 98 07/01/18 04:31 Room Air 07/01/18 02:00 98.3 100 18 155/100 (118) 98 07/01/18 01:40 98.2 87 20 157/89 97 Room Air 07/01/18 01:32 157/89 06/30/18 23:45 98.2 87 20 157/89 97 Room Air 06/30/18 23:45 83 20 Room Air 06/30/18 23:29 98.2 83 20 157/89 97 Room Air Intake and Output 06/30/18 07/01/18 19:00 07:00 Intake Total 55 ml Balance 55 ml Intake IV Total 55 ml # Voids 3 # Bowel Movements 1 Laboratory Tests Test 06/30/18 23:50 White Blood Count 10.1 K/UL (4.8-10.8) Red Blood Count 4.09 M/UL (4.20-5.40) L Hemoglobin 12.5 G/DL (12.0-16.0) Hematocrit 36.6 % (37.0-47.0) L Mean Corpuscular Volume 90 FL (80-99) Mean Corpuscular Hemoglobin 30.5 PG (27.0-31.0) Mean Corpuscular Hemoglobin Concent 34.1 G/DL (32.0-36.0) Red Cell Distribution Width 11.3 % (11.6-14.8) L Platelet Count 377 K/UL (150-450) Mean Platelet Volume 7.8 FL (6.5-10.1) Neutrophils (%) (Auto) 53.7 % (45.0-75.0) Lymphocytes (%) (Auto) 34.2 % (20.0-45.0) Monocytes (%) (Auto) 6.1 % (1.0-10.0) Eosinophils (%) (Auto) 4.6 % (0.0-3.0) H Basophils (%) (Auto) 1.5 % (0.0-2.0) Urine Color Pale yellow Urine Appearance Clear Urine pH 6.5 (4.5-8.0) Urine Specific [place] 1.010 (1.005-1.035) Urine Protein Negative (NEGATIVE) Urine Glucose (UA) Negative (NEGATIVE) Urine Ketones Negative (NEGATIVE) Urine Blood 3+ (NEGATIVE) H Urine Nitrite Negative (NEGATIVE) Urine Bilirubin Negative (NEGATIVE) Urine Urobilinogen Normal MG/DL (0.0-1.0) Urine Leukocyte Esterase 2+ (NEGATIVE) H Urine RBC 15-20 /HPF (0 - 2) H Urine WBC 5-10 /HPF (0 - 2) H Urine Squamous Epithelial Cells Moderate /LPF (NONE/OCC) H Urine Bacteria Few /HPF (NONE) Sodium Level 141 MMOL/L (136-145) Potassium Level 3.8 MMOL/L (3.5-5.1) Chloride Level 102 MMOL/L (98-107) Carbon Dioxide Level 32 MMOL/L (21-32) Anion Gap 7 mmol/L (5-15) Blood Urea Nitrogen 13 mg/dL (7-18) Creatinine 0.7 MG/DL (0.55-1.30) Estimat Glomerular Filtration Rate > 60 mL/min (>60) Glucose Level 102 MG/DL (74-106) Calcium Level 9.8 MG/DL (8.5-10.1) Total Bilirubin 0.5 MG/DL (0.2-1.0) Aspartate Amino Transf (AST/SGOT) 12 U/L (15-37) L Alanine Aminotransferase (ALT/SGPT) 20 U/L (12-78) Alkaline Phosphatase 85 U/L (46-116) Total Creatine Kinase 73 U/L (26-308) Creatine Kinase MB 1.2 NG/ML (0.0-3.6) Creatine Kinase MB Relative Index 1.6 Troponin I 0.005 ng/mL (0.000-0.056) Total Protein 8.5 G/DL (6.4-8.2) H Albumin 3.9 G/DL (3.4-5.0) Globulin 4.6 g/dL Albumin/Globulin Ratio 0.8 (1.0-2.7) L Wilder Siegel MD Jul 01, 2018 13:58
[2018-07-01] MEDS: valACYclovir HCL 500mg tab ORAL SCH ×2 (14:40→20:35)
--- NOTE | 2018-07-01 15:31 | Diagnostic Imaging Report ---
Indication: Abnormal renal function. Technique: US Renal Comp Comparison: CT of the abdomen and pelvis 11/22/2017. Findings: The right kidney measures 11.7 cm in length. It demonstrates normal echogenicity. There is mild hydronephrosis on the right and mild hydroureter which decreases on postvoid images. An subcentimeter echogenic focus is noted in the upper pole the right kidney which may represent insinuation of sinus fat versus nonobstructing stone. The left kidney measures 10.8 cm in length. It demonstrates normal echogenicity. There is no hydronephrosis or sonographically appreciable renal stone. A approximately 1 cm simple appearing cyst is noted in the lower pole the left kidney. Prevoid bladder volume of approximately 267 mL. Post void bladder volume of approximately 2.4 mm. IMPRESSION: Mild right-sided hydroureteronephrosis, improved on postvoid images. Echogenic focus in the upper pole the right kidney may represent a subcentimeter punctate renal stone. Renal echogenicity is within normal limits bilaterally. No significant post void residual bladder volume.
--- NOTE | 2018-07-01 16:15 | History and Physical Report ---
DATE OF ADMISSION: 07/01/2018 CHIEF COMPLAINT: The patient is a 48-year-old white female, who presents with chief complaint of left-sided chest pain. HISTORY OF PRESENT ILLNESS: Again on Friday June 29, 2018, the patient began to experience left-sided chest pain. This radiates to the back. There was no radiation to the jaw or to the shoulder. The pain was on and off. Pain was approximately 7 to 8/10 in intensity. The patient presented to [facility] emergency room on July 01, 2018. The patient was admitted for chest pain to rule out acute coronary syndrome. REVIEW OF SYSTEMS: CONSTITUTIONAL: The patient denies weight loss or weight gain. The patient denies fevers or chills. HEENT: The patient denies ear or throat pain. The patient denies headache. CARDIOVASCULAR: The patient complains of chest pain as above. The patient denies palpitations. ABDOMEN: The patient denies nausea, vomiting, diarrhea, or constipation. GENITOURINARY: The patient denies dysuria or increased frequency of urination. NEUROMUSCULAR: The patient denies seizures or generalized weakness. PAST MEDICAL HISTORY: Significant for: 1. Diverticulosis. 2. Borderline hypertension. 3. Chiari malformation. PAST SURGICAL HISTORY: Significant for: 1. section x1. 2. Right ovarian cyst. 3. Right ureteral stent placement. CURRENT MEDICATIONS: [id number] vitamins. ALLERGIES: 1. Hydromorphone. 2. Iodine. 3. Codeine. 4. Ibuprofen. SOCIAL HISTORY: The patient is a . The patient's of chronic alcoholism. The patient denies tobacco or alcohol use. PHYSICAL EXAMINATION: VITAL SIGNS: Temperature 98.0, respirations 18, pulse 100, and blood pressure 145/95. GENERAL: The patient is a well-developed, well-nourished white female, in no apparent distress. HEENT: Eyes, pupils are equal and responsive to light and accommodation. Extraocular movements are intact. NECK: Supple without lymphadenopathy. CHEST: Lungs are clear to auscultation bilaterally without wheezes or rales. CARDIOVASCULAR: Regular rate. S1, S2 normal without murmurs, rubs, or gallops. ABDOMEN: Soft, nontender, nondistended. Positive bowel sounds. No evidence of hepatosplenomegaly. Currently, no rebound or guarding noted. EXTREMITIES: Negative for clubbing, cyanosis, or edema. RECTAL: Refused. GENITAL: Refused. NEUROLOGIC: Cranial nerves II through XII are grossly intact without focal deficits. Motor strength is 5/5 bilaterally. Deep tendon reflexes are 2+ plantar. LABORATORY STUDIES: WBC 10.1, hemoglobin 12.5, hematocrit 36.6, and platelets 377,000. Sodium 141, potassium 3.8, chloride 102, CO2 32, BUN 13, creatinine 0.7, glucose 102. Troponin 0.005. Chest x-ray was reported as no acute disease. ASSESSMENT: This is a 48-year-old white female. 1. Chest pain. 2. Diverticulosis. 3. Hypertension. 4. Arnold-Chiari malformation. TREATMENT: 1. Chest pain. A Cardiology consultation has been obtained with Dr. Wilder Siegel. Serial troponin levels will be performed. A Cardiolite stress test is pending. We will follow recommendations of Cardiology. 2. Diverticulosis, stable. 3. Hypertension. The patient is currently hypertensive. The patient is started on clonidine 0.1 p.r.n. for hypertension. 4. Arnold-Chiari malformation . Roland Monsalve M.D. DR: NADER JOB#: [id number] CC:
--- NOTE | 2018-07-01 16:30 | Consultation ---
DATE OF CONSULTATION: 07/01/2018 CARDIOLOGY CONSULTATION CONSULTING PHYSICIAN: Wilder Siegel M.D. REFERRING PHYSICIAN: Roland Monsalve M.D. REASON FOR CONSULTATION: Chest pain. HISTORY OF PRESENT ILLNESS: The patient is a very pleasant 48-year-old lady under care of Dr. Roland Monsalve as a office patient, has also history of hypertension, anxiety, history of ureteral stricture came to the emergency room complaining of chest pain. The pain was pressure-like with radiation to left arm. The patient denies any nausea, vomiting, diaphoresis, syncope, or presyncope. The patient was admitted and a Cardiology consultation was obtained for further evaluation and management. REVIEW OF SYSTEMS: Review of systems was negative other than what was mentioned in the history of present illness. PAST MEDICAL HISTORY: 1. Hypertension. 2. History of hysterectomy. 3. History of diverticulitis. FAMILY HISTORY: Noncontributory. SOCIAL HISTORY: She lives at home. Does not smoke or drink alcohol. PHYSICAL EXAMINATION: VITAL SIGNS: Blood pressure of 145/77, pulse 80, respirations 16, temperature 98.4. HEAD AND NECK: Showed no JVD. LUNGS: Clear. CARDIOVASCULAR: Regular S1 and S2 with no gallop or murmur. ABDOMEN: Soft. EXTREMITIES: No pitting edema. LABORATORY AND DIAGNOSTIC DATA: White count of 10, hemoglobin 12, hematocrit 36, and platelet count of 377. Sodium 141, potassium 3.8, BUN of 13, creatinine 0.7, glucose of 102. Troponin is negative. ASSESSMENT AND PLAN: 1. Atypical chest pain. The patient's first troponin is negative. We will repeat stat troponin. Her EKG is completely normal. We will get an echocardiogram. If all negative, the patient can be discharged. 2. History of hypertension. Blood pressure is marginally elevated. Continue p.r.n. clonidine. 3. History of Chiari malformation. 4. Ureteral stricture. 5. Diverticulitis . Thank you very much for allowing me to participate in the care of this patient. Please do not hesitate to contact me for any questions regarding my evaluation. Sincerely, Wilder Siegel M.D. DR: Mainor JOB#: [id number] CC:
--- NOTE | 2018-07-01 16:39 | NUR ---
*-* INSURANCE *-* ALL CLINICALS HAVE BEEN FAXED TO: [facility] [place] P- [phone] F- [phone] .... (OFFICE CLOSED [facility]) BLUE SHIELD/PROMISE NCM: SILAS MCLAIN P- [phone] X [id number] F- [phone] .... (OFFICE CLOSED [facility])
--- NOTE | 2018-07-01 19:45 | NUR ---
NURSE NOTES: Received pt. and report from SRAVANI Cerna. Observe pt. resting in bed and watching TV. electronic device monitor is in placed, IV site is intact, asymptomatic, and patent. Bed is in the lowest position and locked, call light within reach. Pt. will be NPO at midnight for Lexiscan procedure tomorrow. No chest pain or acute distress noted at this time. Will continue plan of care.
--- NOTE | 2018-07-01 19:49 | NUR ---
CASE MANAGEMENT: REVIEW 48/F BIBA FROM HOME CC: CHEST PAIN SI: CHEST PAIN T 98.2 HR 83 RR 20 BP 157/89 SAT 97% ROOM AIR TROPONIN I 0.005 IS: ASA PO X1 CEFTRIAXONE IV X1 HYDRALAZINE IV X1 PATIENT ADMITTED TO TELEMETRY UNIT 07/01/2018 DCP: PATIENT IS FROM HOME
--- NOTE | 2018-07-01 19:53 | NUR ---
HAND-OFF: Report given to SRAVANI Cruz.
--- NOTE | 2018-07-01 21:05 | Consultation ---
History of Present Illness General Chief Complaint: Chest Pain Present Illness HPI 48-year-old female, has with history of hypertension, anxiety, history of ureteral stricture came to the emergency room complaining of chest pain. the pt endorses anxiety and low energy. the pt denied si/hi the pt does not endorse panic attack like sxs Allergies: Coded Allergies: HYDROMORPHONE (Verified Allergy, Intermediate, Anaphylaxis, 06/22/14) sob, itching and closing throat IODINE (Verified Allergy, Mild, Rash, 06/06/13) RASPBERRY (Verified Allergy, Unknown, 04/03/16) SHELLFISH DERIVED (Verified Allergy, Unknown, 04/03/16) WHEAT (Verified Allergy, Unknown, 09/21/15) OSELTAMIVIR (Verified Adverse Reaction, Mild, 07/04/16) Nausea, vomiting, stomach discomfort and diarrhea Medication History Scheduled Azithromycin* (Zithromax*), 250 MG ORAL see instructions Benzonatate* (Tessalon Perle*), 100 MG ORAL THREE TIMES A DAY Docosanol (Abreva), 1 INCH TOPIC TID Lidocaine (Lidoderm), 1 PATCH TOPIC see instructions Multivitamin (Multi Vitamin Daily), 1 TAB ORAL DAILY, (Reported) No Known Medications* (NKM - No Known Medications*), 0 ., (Reported) Valacyclovir Hcl* (Valtrex*), 2,000 MG ORAL TWICE A DAY Valacyclovir Hcl* (Valtrex*), 2,000 MG ORAL TWICE A DAY Scheduled PRN Acetaminophen With Codeine (T#3) (Tylenol #3 Tab*), 1 TAB ORAL Q8H PRN for For Pain Cyclobenzaprine Hcl* (Flexeril*), 10 MG ORAL TID PRN for Muscle Spasm Ibuprofen* (Motrin*), 600 MG ORAL Q8H PRN for For Pain Ibuprofen* (Motrin*), 600 MG ORAL Q8H PRN for For Pain Miscellaneous Medications [hemp oil], (Reported) Patient History History Provided By: Patient, Medical Record, PMD Healthcare decision maker Resuscitation status Advanced Directive on File Past Medical/Surgical History Past Medical/Surgical History: (1) Anxiety (2) ACS (acute coronary syndrome) (3) Chest pain (4) Acute lower UTI (5) Acute head injury (6) Enteritis (7) Abdominal pain (8) Diarrhea (9) Cerebrovascular accident (CVA) (10) Chiari I malformation (11) Acute cervical radiculopathy (12) Influenza-like symptoms (13) Allergic reaction (14) Medial tibial stress syndrome (15) Ureteral stricture (16) Acute diverticulitis (17) diverticulitis (18) Abdominal pain (19) UTI (urinary tract infection) (20) Hypertension Review of Systems Psychiatric: Reports: prior hx, anxiety Physical Exam General Appearance: WD/WN, no apparent distress, alert Neurologic: oriented x 3, responsive, normal mood/affect Last 24 Hour Vital Signs Date Time Temp Pulse Resp B/P (MAP) Pulse Ox O2 Delivery O2 Flow Rate FiO2 07/01/18 16:00 98.8 89 20 154/95 (114) 96 07/01/18 16:00 100 07/01/18 12:00 97.2 76 20 150/86 (107) 96 07/01/18 12:00 87 07/01/18 09:00 Room Air 07/01/18 08:00 98.4 80 16 145/77 (99) 97 07/01/18 08:00 70 07/01/18 06:54 97.9 86 16 138/94 (109) 99 07/01/18 06:30 92 140/90 (107) 07/01/18 04:56 74 07/01/18 04:50 98.0 100 18 145/95 (112) 98 07/01/18 04:31 Room Air 07/01/18 02:00 98.3 100 18 155/100 (118) 98 07/01/18 01:40 98.2 87 20 157/89 97 Room Air 07/01/18 01:32 157/89 06/30/18 23:45 98.2 87 20 157/89 97 Room Air 06/30/18 23:45 83 20 Room Air 06/30/18 23:29 98.2 83 20 157/89 97 Room Air Intake and Output 06/30/18 07/01/18 18:59 06:59 Intake Total 55 ml Balance 55 ml Intake IV Total 55 ml # Voids 3 # Bowel Movements 1 Laboratory Tests Test 06/30/18 23:50 White Blood Count 10.1 K/UL (4.8-10.8) Red Blood Count 4.09 M/UL (4.20-5.40) L Hemoglobin 12.5 G/DL (12.0-16.0) Hematocrit 36.6 % (37.0-47.0) L Mean Corpuscular Volume 90 FL (80-99) Mean Corpuscular Hemoglobin 30.5 PG (27.0-31.0) Mean Corpuscular Hemoglobin Concent 34.1 G/DL (32.0-36.0) Red Cell Distribution Width 11.3 % (11.6-14.8) L Platelet Count 377 K/UL (150-450) Mean Platelet Volume 7.8 FL (6.5-10.1) Neutrophils (%) (Auto) 53.7 % (45.0-75.0) Lymphocytes (%) (Auto) 34.2 % (20.0-45.0) Monocytes (%) (Auto) 6.1 % (1.0-10.0) Eosinophils (%) (Auto) 4.6 % (0.0-3.0) H Basophils (%) (Auto) 1.5 % (0.0-2.0) Urine Color Pale yellow Urine Appearance Clear Urine pH 6.5 (4.5-8.0) Urine Specific [place] 1.010 (1.005-1.035) Urine Protein Negative (NEGATIVE) Urine Glucose (UA) Negative (NEGATIVE) Urine Ketones Negative (NEGATIVE) Urine Blood 3+ (NEGATIVE) H Urine Nitrite Negative (NEGATIVE) Urine Bilirubin Negative (NEGATIVE) Urine Urobilinogen Normal MG/DL (0.0-1.0) Urine Leukocyte Esterase 2+ (NEGATIVE) H Urine RBC 15-20 /HPF (0 - 2) H Urine WBC 5-10 /HPF (0 - 2) H Urine Squamous Epithelial Cells Moderate /LPF (NONE/OCC) H Urine Bacteria Few /HPF (NONE) Sodium Level 141 MMOL/L (136-145) Potassium Level 3.8 MMOL/L (3.5-5.1) Chloride Level 102 MMOL/L (98-107) Carbon Dioxide Level 32 MMOL/L (21-32) Anion Gap 7 mmol/L (5-15) Blood Urea Nitrogen 13 mg/dL (7-18) Creatinine 0.7 MG/DL (0.55-1.30) Estimat Glomerular Filtration Rate > 60 mL/min (>60) Glucose Level 102 MG/DL (74-106) Calcium Level 9.8 MG/DL (8.5-10.1) Total Bilirubin 0.5 MG/DL (0.2-1.0) Aspartate Amino Transf (AST/SGOT) 12 U/L (15-37) L Alanine Aminotransferase (ALT/SGPT) 20 U/L (12-78) Alkaline Phosphatase 85 U/L (46-116) Total Creatine Kinase 73 U/L (26-308) Creatine Kinase MB 1.2 NG/ML (0.0-3.6) Creatine Kinase MB Relative Index 1.6 Troponin I 0.005 ng/mL (0.000-0.056) Total Protein 8.5 G/DL (6.4-8.2) H Albumin 3.9 G/DL (3.4-5.0) Globulin 4.6 g/dL Albumin/Globulin Ratio 0.8 (1.0-2.7) L Height (Feet): 5 Height (Inches): 7.00 Weight (Pounds): 155 Medications Current Medications Medications (Trade) Dose Ordered Sig/Magaly Route PRN Reason Start Time Stop Time Status Last Admin Dose Admin Acetaminophen (Tylenol) 650 mg Q4H PRN ORAL Mild Pain/Temp > 100.5 07/01/18 10:45 07/31/18 10:44 07/01/18 11:59 Clonidine HCl (Catapres Tab) 0.1 mg Q6H PRN ORAL For High Blood Pressure 07/01/18 10:45 07/31/18 10:44 Cyclobenzaprine HCl (Flexeril) 10 mg Q8H PRN ORAL Muscle Spasm 07/01/18 10:45 07/31/18 10:44 Docosanol (Abreva) 1 gm TID TP 07/01/18 13:00 07/31/18 12:59 07/01/18 18:33 Ibuprofen (Motrin) 600 mg Q8H PRN ORAL For Pain 07/01/18 10:45 07/31/18 10:44 Lidocaine (Lidoderm 5% PATCH) 1 patch DAILY TDERMAL 07/01/18 10:45 07/31/18 10:44 07/01/18 11:52 Lisinopril (Zestril) 10 mg DAILY ORAL 07/02/18 09:00 08/01/18 08:59 Multivitamins (Multivitamins) 1 tab DAILY ORAL 07/01/18 10:45 07/31/18 10:44 07/01/18 11:51 Paroxetine HCl (Paxil) 20 mg DAILY ORAL 07/02/18 09:00 08/01/18 08:59 Regadenoson (Lexiscan) 0.4 mg ONCE PRN IV CARDIOLOGY 07/01/18 13:44 07/03/18 23:59 Temazepam (Restoril) 15 mg HSPRN PRN ORAL Insomnia 07/01/18 13:30 07/08/18 13:29 Valacyclovir HCl (Valtrex) 2,000 mg Q12HR ORAL 07/01/18 12:00 07/31/18 11:59 07/01/18 20:35 Assessment/Plan Problem List: (1) Anxiety ICD Codes: F41.9 - Anxiety disorder, unspecified SNOMED: 67771050 Assessment/Plan celexa 20mg qam ativan prn Alejandro Orta MD Jul 01, 2018 21:05
[2018-07-02] VITALS: BP 139/78
[2018-07-02 04:00] VITALS: BP 145/91
[2018-07-02 07:32] LABS: BASOPHILS % (AUTO) 1.4 % (0.0-2.0); EOSINOPHILS % (AUTO) 2.8 % (0.0-3.0); HEMATOCRIT 37.3 % (37.0-47.0); HEMOGLOBIN 12.6 G/DL (12.0-16.0); LYMPHOCYTES % (AUTO) 30.3 % (20.0-45.0); MEAN CORPUSCULAR VOLUME 90 FL (80-99); MONOCYTES % (AUTO) 7.2 % (1.0-10.0); NEUTROPHILS % (AUTO) 58.4 % (45.0-75.0); PLATELET COUNT 342 K/UL (150-450); RED BLOOD COUNT 4.14 M/UL (4.20-5.40); RED CELL DISTRIBUTION WIDTH 11.6 % (11.6-14.8); WHITE BLOOD COUNT 8.8 K/UL (4.8-10.8)
--- NOTE | 2018-07-02 07:41 | NUR ---
HAND-OFF: Report given to []. Addendum: 07/02/18 at 0741 by Mesha Burkett Mai, RN Report given to SRAVANI Connor.
[2018-07-02 07:43] LABS: ANION GAP 12 mmol/L (5-15); BLOOD UREA NITROGEN 18 mg/dL (7-18); CALCIUM 9.8 MG/DL (8.5-10.1); CARBON DIOXIDE 24 MMOL/L (21-32); CHLORIDE 102 MMOL/L (98-107); CREATININE 0.7 MG/DL (0.55-1.30); SODIUM 138 MMOL/L (136-145)
[2018-07-02 08:00] VITALS: BP 132/82
--- NOTE | 2018-07-02 08:15 | NUR ---
NURSE NOTES: Pt is requesting treadmill with nuclear medicine instead of a lexiscan. Called Dr. Monsalve and left a message explaining the situation. Will await call back
[2018-07-02] MEDS: valACYclovir HCL 500mg tab ORAL SCH (08:50)
[2018-07-02] MEDS: PARoxetine 20mg tab ORAL SCH ×2 (08:50→09:00)
[2018-07-02] MEDS: Abreva 10% cream 2gm TP SCH ×3 (08:50→17:31)
[2018-07-02] MEDS: Lisinopril 10mg tab ORAL SCH ×2 (08:50→09:00)
[2018-07-02] MEDS ORDERED: Lexiscan 0.4mg/5ml syringe IV PRN ×2 (09:00→12:00)
--- NOTE | 2018-07-02 09:10 | NUR ---
NURSE NOTES: Called Dr. Monsalve regarding patients request for treadmill stress test. Have not yet received call back. Called Dr. Levine and left message for him regarding patients request. Will await call back from MD's
--- NOTE | 2018-07-02 10:41 | Cardiac Electrophysiology PN ---
Assessment/Plan Assessment/Plan 1. Atypical chest pain. Ruled out for NC. Her EKG is completely normal. Echocardiogram 60%. Stress test today. If all negative, the patient can be discharged. 2. History of hypertension. Blood pressure is marginally elevated. Continue Lisinopril 10 daily and p.r.n. clonidine. 3. History of Chiari malformation. 4. Ureteral stricture. 5. Diverticulitis . JJ RN Subjective Subjective Scheduled for nuclear stress test today. Objective Last 24 Hour Vital Signs Date Time Temp Pulse Resp B/P (MAP) Pulse Ox O2 Delivery O2 Flow Rate FiO2 07/02/18 08:00 98.2 67 18 132/82 (99) 97 07/02/18 04:00 62 07/02/18 04:00 98.0 86 18 145/91 (109) 96 07/02/18 00:00 84 07/02/18 00:00 98.4 91 19 139/78 (98) 93 07/01/18 21:00 Room Air 07/01/18 20:00 71 07/01/18 20:00 99.3 82 18 144/87 (106) 96 07/01/18 16:00 98.8 89 20 154/95 (114) 96 07/01/18 16:00 100 07/01/18 12:00 97.2 76 20 150/86 (107) 96 07/01/18 12:00 87 Intake and Output 07/01/18 07/02/18 19:00 07:00 Intake Total 400 ml Balance 400 ml Intake Oral 400 ml # Voids 2 1 Laboratory Tests Test 07/02/18 06:08 White Blood Count 8.8 K/UL (4.8-10.8) Red Blood Count 4.14 M/UL (4.20-5.40) L Hemoglobin 12.6 G/DL (12.0-16.0) Hematocrit 37.3 % (37.0-47.0) Mean Corpuscular Volume 90 FL (80-99) Mean Corpuscular Hemoglobin 30.5 PG (27.0-31.0) Mean Corpuscular Hemoglobin Concent 33.9 G/DL (32.0-36.0) Red Cell Distribution Width 11.6 % (11.6-14.8) Platelet Count 342 K/UL (150-450) Mean Platelet Volume 7.5 FL (6.5-10.1) Neutrophils (%) (Auto) 58.4 % (45.0-75.0) Lymphocytes (%) (Auto) 30.3 % (20.0-45.0) Monocytes (%) (Auto) 7.2 % (1.0-10.0) Eosinophils (%) (Auto) 2.8 % (0.0-3.0) Basophils (%) (Auto) 1.4 % (0.0-2.0) Sodium Level 138 MMOL/L (136-145) Potassium Level 4.0 MMOL/L (3.5-5.1) Chloride Level 102 MMOL/L (98-107) Carbon Dioxide Level 24 MMOL/L (21-32) Anion Gap 12 mmol/L (5-15) Blood Urea Nitrogen 18 mg/dL (7-18) Creatinine 0.7 MG/DL (0.55-1.30) Estimat Glomerular Filtration Rate > 60 mL/min (>60) Glucose Level 93 MG/DL (74-106) Calcium Level 9.8 MG/DL (8.5-10.1) Troponin I 0.006 ng/mL (0.000-0.056) Objective HEAD AND NECK: No JVD. LUNGS: Clear. CARDIOVASCULAR: Regular S1 and S2 with no gallop or murmur. ABDOMEN: Soft. EXTREMITIES: No pitting edema. Wilder Siegel MD Jul 02, 2018 10:41
--- NOTE | 2018-07-02 11:08 | Pulmonology Progress Note ---
Assessment/Plan Problems: (1) ACS (acute coronary syndrome) (2) Anxiety (3) Hypertension (4) Ureteral stricture (5) Chiari I malformation Assessment/Plan stress test in process renal US reviewed monitor BP might go home if stress test is negative. Subjective ROS Limited/Unobtainable: No Constitutional: Reports: no symptoms HEENT: Repors: no symptoms Respiratory: Reports: no symptoms Allergies: Coded Allergies: HYDROMORPHONE (Verified Allergy, Intermediate, Anaphylaxis, 06/22/14) sob, itching and closing throat IODINE (Verified Allergy, Mild, Rash, 06/06/13) RASPBERRY (Verified Allergy, Unknown, 04/03/16) SHELLFISH DERIVED (Verified Allergy, Unknown, 04/03/16) WHEAT (Verified Allergy, Unknown, 09/21/15) OSELTAMIVIR (Verified Adverse Reaction, Mild, 07/04/16) Nausea, vomiting, stomach discomfort and diarrhea Objective Last 24 Hour Vital Signs Date Time Temp Pulse Resp B/P (MAP) Pulse Ox O2 Delivery O2 Flow Rate FiO2 07/02/18 09:00 Room Air 07/02/18 08:00 65 07/02/18 08:00 98.2 67 18 132/82 (99) 97 07/02/18 04:00 62 07/02/18 04:00 98.0 86 18 145/91 (109) 96 07/02/18 00:00 84 07/02/18 00:00 98.4 91 19 139/78 (98) 93 07/01/18 21:00 Room Air 07/01/18 20:00 71 07/01/18 20:00 99.3 82 18 144/87 (106) 96 07/01/18 16:00 98.8 89 20 154/95 (114) 96 07/01/18 16:00 100 07/01/18 12:00 97.2 76 20 150/86 (107) 96 07/01/18 12:00 87 Intake and Output 07/01/18 07/02/18 19:00 07:00 Intake Total 400 ml Balance 400 ml Intake Oral 400 ml # Voids 2 1 General Appearance: WD/WN HEENT: normocephalic, atraumatic, anicteric Respiratory/Chest: chest wall non-tender, lungs clear Breasts: no masses Cardiovascular: normal peripheral pulses Abdomen: normal bowel sounds, soft, non tender Genitourinary: normal external genitalia Extremities: no cyanosis Skin: no rash Laboratory Tests 07/02/18 06:08: White Blood Count 8.8, Red Blood Count 4.14L, Hemoglobin 12.6, Hematocrit 37.3, Mean Corpuscular Volume 90, Mean Corpuscular Hemoglobin 30.5, Mean Corpuscular Hemoglobin Concent 33.9, Red Cell Distribution Width 11.6, Platelet Count 342, Mean Platelet Volume 7.5, Neutrophils (%) (Auto) 58.4, Lymphocytes (%) (Auto) 30.3, Monocytes (%) (Auto) 7.2, Eosinophils (%) (Auto) 2.8, Basophils (%) (Auto ) 1.4, Sodium Level 138, Potassium Level 4.0, Chloride Level 102, Carbon Dioxide Level 24, Anion Gap 12, Blood Urea Nitrogen 18, Creatinine 0.7, Estimat Glomerular Filtration Rate > 60, Glucose Level 93, Calcium Level 9.8, Troponin I 0.006 Current Medications Medications (Trade) Dose Ordered Sig/Magaly Route PRN Reason Start Time Stop Time Status Last Admin Dose Admin Acetaminophen (Tylenol) 650 mg Q4H PRN ORAL Mild Pain/Temp > 100.5 07/01/18 10:45 07/31/18 10:44 07/02/18 02:50 Clonidine HCl (Catapres Tab) 0.1 mg Q6H PRN ORAL For High Blood Pressure 07/01/18 10:45 07/31/18 10:44 Cyclobenzaprine HCl (Flexeril) 10 mg Q8H PRN ORAL Muscle Spasm 07/01/18 10:45 07/31/18 10:44 Docosanol (Abreva) 1 gm TID TP 07/01/18 13:00 07/31/18 12:59 07/02/18 08:50 Ibuprofen (Motrin) 600 mg Q8H PRN ORAL For Pain 07/01/18 10:45 07/31/18 10:44 Lidocaine (Lidoderm 5% PATCH) 1 patch DAILY TDERMAL 07/01/18 10:45 07/31/18 10:44 07/01/18 11:52 Lisinopril (Zestril) 10 mg DAILY ORAL 07/02/18 09:00 08/01/18 08:59 Multivitamins (Multivitamins) 1 tab DAILY ORAL 07/01/18 10:45 07/31/18 10:44 07/02/18 08:50 Paroxetine HCl (Paxil) 20 mg DAILY ORAL 07/02/18 09:00 08/01/18 08:59 Regadenoson (Lexiscan) 0.4 mg ONCE PRN IV CARDIOLOGY 07/01/18 13:44 07/03/18 23:59 Regadenoson (Lexiscan) 0.4 mg ONCE PRN IV stress test 07/02/18 09:00 07/04/18 08:59 Regadenoson (Lexiscan) 0.4 mg ONCE PRN IV stress test 07/02/18 12:00 07/03/18 11:59 Temazepam (Restoril) 15 mg HSPRN PRN ORAL Insomnia 07/01/18 13:30 07/08/18 13:29 Valacyclovir HCl (Valtrex) 2,000 mg Q12HR ORAL 07/01/18 12:00 07/31/18 11:59 07/02/18 08:50 Khushi Barnes MD Jul 02, 2018 11:08
[2018-07-02 12:00] VITALS: BP 132/82
--- NOTE | 2018-07-02 12:23 | General Progress Note ---
Assessment/Plan Problem List: (1) Anxiety ICD Codes: F41.9 - Anxiety disorder, unspecified SNOMED: 46687117 Status: stable, progressing Assessment/Plan celexa 20mg qam ativan prn Subjective Neurologic/Psychiatric: Reports: anxiety Allergies: Coded Allergies: HYDROMORPHONE (Verified Allergy, Intermediate, Anaphylaxis, 06/22/14) sob, itching and closing throat IODINE (Verified Allergy, Mild, Rash, 06/06/13) RASPBERRY (Verified Allergy, Unknown, 04/03/16) SHELLFISH DERIVED (Verified Allergy, Unknown, 04/03/16) WHEAT (Verified Allergy, Unknown, 09/21/15) OSELTAMIVIR (Verified Adverse Reaction, Mild, 07/04/16) Nausea, vomiting, stomach discomfort and diarrhea Objective Last 24 Hour Vital Signs Date Time Temp Pulse Resp B/P (MAP) Pulse Ox O2 Delivery O2 Flow Rate FiO2 07/02/18 09:00 Room Air 07/02/18 08:00 65 07/02/18 08:00 98.2 67 18 132/82 (99) 97 07/02/18 04:00 62 07/02/18 04:00 98.0 86 18 145/91 (109) 96 07/02/18 00:00 84 07/02/18 00:00 98.4 91 19 139/78 (98) 93 07/01/18 21:00 Room Air 07/01/18 20:00 71 07/01/18 20:00 99.3 82 18 144/87 (106) 96 07/01/18 16:00 98.8 89 20 154/95 (114) 96 07/01/18 16:00 100 Intake and Output 07/01/18 07/02/18 19:00 07:00 Intake Total 400 ml Balance 400 ml Intake Oral 400 ml # Voids 2 1 Laboratory Tests 07/02/18 06:08: White Blood Count 8.8, Red Blood Count 4.14L, Hemoglobin 12.6, Hematocrit 37.3, Mean Corpuscular Volume 90, Mean Corpuscular Hemoglobin 30.5, Mean Corpuscular Hemoglobin Concent 33.9, Red Cell Distribution Width 11.6, Platelet Count 342, Mean Platelet Volume 7.5, Neutrophils (%) (Auto) 58.4, Lymphocytes (%) (Auto) 30.3, Monocytes (%) (Auto) 7.2, Eosinophils (%) (Auto) 2.8, Basophils (%) (Auto ) 1.4, Sodium Level 138, Potassium Level 4.0, Chloride Level 102, Carbon Dioxide Level 24, Anion Gap 12, Blood Urea Nitrogen 18, Creatinine 0.7, Estimat Glomerular Filtration Rate > 60, Glucose Level 93, Calcium Level 9.8, Troponin I 0.006 Height (Feet): 5 Height (Inches): 7.00 Weight (Pounds): 155 General Appearance: WD/WN, no apparent distress, alert Neurologic: oriented x 3, responsive, depressed affect Alejandro Orta MD Jul 02, 2018 12:23
--- NOTE | 2018-07-02 14:59 | Diagnostic Imaging Report ---
Indications: Chest pain Technique: Single day single isotope protocol utilized. Initially, resting images obtained using IV administration 10.3 millicuries 99M technetium Myoview. Subsequently, patient underwent treadmill stress testing. See cardiology report for details. During exercise, IV administration 32.7 mCi 99 M technetium Myoview. SPECT and planar images obtained. SPECT images gated to 8 phases of the cardiac cycle were also obtained, and reformatted into cine images for evaluation of ejection fraction. Comparison: none Findings: Presence or absence of symptoms is not described on the cardiology report. Per cardiology report, resting EKG demonstrates normal sinus rhythm. During exercise, patient achieved a peak heart rate of one 51 bpm, and excess of the target heart rate one 45 bpm. Imaging demonstrates no evidence of fixed or reversible post stress perfusion defects. Normal cardiac chamber size. Calculated post stress ejection fraction is 71%. No focal wall motion abnormality demonstrated. Impression: Nonischemic clinical response to pharmacologic stress, per cardiology report Nonischemic electrocardiographic response to pharmacologic stress, per cardiology report No imaging findings to suggest ischemia, at level of stress achieved. Calculated post stress ejection fraction greater than 70%
--- NOTE | 2018-07-02 15:38 | Internal Med Progress Note ---
Subjective Date of Service: Jul 02, 2018 Physician Name Roland Monsalve Attending Physician Roland Monsalve MD Current Medications Medications (Trade) Dose Ordered Sig/Magaly Route PRN Reason Start Time Stop Time Status Last Admin Dose Admin Acetaminophen (Tylenol) 650 mg Q4H PRN ORAL Mild Pain/Temp > 100.5 07/01/18 10:45 07/31/18 10:44 07/02/18 02:50 Citalopram Hydrobromide (celeXA) 20 mg DAILY ORAL 07/03/18 09:00 08/02/18 08:59 Clonidine HCl (Catapres Tab) 0.1 mg Q6H PRN ORAL For High Blood Pressure 07/01/18 10:45 07/31/18 10:44 Cyclobenzaprine HCl (Flexeril) 10 mg Q8H PRN ORAL Muscle Spasm 07/01/18 10:45 07/31/18 10:44 Docosanol (Abreva) 1 gm TID TP 07/01/18 13:00 07/31/18 12:59 07/02/18 12:07 Ibuprofen (Motrin) 600 mg Q8H PRN ORAL For Pain 07/01/18 10:45 07/31/18 10:44 Lidocaine (Lidoderm 5% PATCH) 1 patch DAILY TDERMAL 07/01/18 10:45 07/31/18 10:44 07/01/18 11:52 Lisinopril (Zestril) 10 mg DAILY ORAL 07/02/18 09:00 08/01/18 08:59 Multivitamins (Multivitamins) 1 tab DAILY ORAL 07/01/18 10:45 07/31/18 10:44 07/02/18 08:50 Paroxetine HCl (Paxil) 20 mg DAILY ORAL 07/02/18 09:00 08/01/18 08:59 Regadenoson (Lexiscan) 0.4 mg ONCE PRN IV CARDIOLOGY 07/01/18 13:44 07/03/18 23:59 Regadenoson (Lexiscan) 0.4 mg ONCE PRN IV stress test 07/02/18 09:00 07/04/18 08:59 Regadenoson (Lexiscan) 0.4 mg ONCE PRN IV stress test 07/02/18 12:00 07/03/18 11:59 Temazepam (Restoril) 15 mg HSPRN PRN ORAL Insomnia 07/01/18 13:30 07/08/18 13:29 Valacyclovir HCl (Valtrex) 2,000 mg Q12HR ORAL 07/01/18 12:00 07/31/18 11:59 07/02/18 08:50 Allergies: Coded Allergies: HYDROMORPHONE (Verified Allergy, Intermediate, Anaphylaxis, 06/22/14) sob, itching and closing throat IODINE (Verified Allergy, Mild, Rash, 06/06/13) RASPBERRY (Verified Allergy, Unknown, 04/03/16) SHELLFISH DERIVED (Verified Allergy, Unknown, 04/03/16) WHEAT (Verified Allergy, Unknown, 09/21/15) OSELTAMIVIR (Verified Adverse Reaction, Mild, 07/04/16) Nausea, vomiting, stomach discomfort and diarrhea ROS Limited/Unobtainable: No Constitutional: Reports: no symptoms HEENT: Reports: no symptoms Cardiovascular: Reports: no symptoms Respiratory: Reports: no symptoms Gastrointestinal/Abdominal: Reports: no symptoms Genitourinary: Reports: no symptoms Neurologic/Psychiatric: Reports: no symptoms Subjective 48 YO F admitted with chest pain. Await nuclear myocardial perfusion study result Objective Last Vital Signs Date Time Temp Pulse Resp B/P (MAP) Pulse Ox O2 Delivery O2 Flow Rate FiO2 07/02/18 12:00 98.5 92 18 132/82 (99) 95 07/02/18 09:00 Room Air General Appearance: WD/WN, no apparent distress, alert EENT: PERRL/EOMI, normal ENT inspection, TMs normal Neck: non-tender, normal alignment, supple, normal inspection Cardiovascular: normal peripheral pulses, normal rate, regular rhythm, no gallop/murmur, no JVD Respiratory/Chest: chest wall non-tender, lungs clear, normal breath sounds, no respiratory distress, no accessory muscle use Abdomen: normal bowel sounds, non tender, soft, no organomegaly, no mass Extremities: normal range of motion, non-tender Neurologic: research program coordinator II-XII grossly normal, no motor/sensory deficits Skin: normal pigmentation, warm/dry Laboratory Tests Test 07/02/18 06:08 White Blood Count 8.8 K/UL (4.8-10.8) Red Blood Count 4.14 M/UL (4.20-5.40) L Hemoglobin 12.6 G/DL (12.0-16.0) Hematocrit 37.3 % (37.0-47.0) Mean Corpuscular Volume 90 FL (80-99) Mean Corpuscular Hemoglobin 30.5 PG (27.0-31.0) Mean Corpuscular Hemoglobin Concent 33.9 G/DL (32.0-36.0) Red Cell Distribution Width 11.6 % (11.6-14.8) Platelet Count 342 K/UL (150-450) Mean Platelet Volume 7.5 FL (6.5-10.1) Neutrophils (%) (Auto) 58.4 % (45.0-75.0) Lymphocytes (%) (Auto) 30.3 % (20.0-45.0) Monocytes (%) (Auto) 7.2 % (1.0-10.0) Eosinophils (%) (Auto) 2.8 % (0.0-3.0) Basophils (%) (Auto) 1.4 % (0.0-2.0) Sodium Level 138 MMOL/L (136-145) Potassium Level 4.0 MMOL/L (3.5-5.1) Chloride Level 102 MMOL/L (98-107) Carbon Dioxide Level 24 MMOL/L (21-32) Anion Gap 12 mmol/L (5-15) Blood Urea Nitrogen 18 mg/dL (7-18) Creatinine 0.7 MG/DL (0.55-1.30) Estimat Glomerular Filtration Rate > 60 mL/min (>60) Glucose Level 93 MG/DL (74-106) Calcium Level 9.8 MG/DL (8.5-10.1) Troponin I 0.006 ng/mL (0.000-0.056) Intake and Output 07/01/18 07/02/18 19:00 07:00 Intake Total 400 ml Balance 400 ml Intake Oral 400 ml # Voids 2 1 Assessment/Plan Problem List: (1) Diverticulosis (2) Chest pain Assessment & Plan: Acut Myocardial infarction rulled out. Nuclear myocardial perfusion study normal. See cardiology note. (3) Chiari I malformation (4) Hypertension Assessment & Plan: Patient refused lisinopril Status: stable Assessment/Plan Discharge home today. F/U Dr Monsalve in 2 weeks Roland Monsalve MD Jul 02, 2018 15:38
[2018-07-02] MEDS ORDERED: CIPRO500 MG/51 PO (15:41)
[2018-07-02 16:00] VITALS: BP 121/74
--- NOTE | 2018-07-02 16:13 | NUR ---
*-* INSURANCE *-* ALL CLINICALS HAVE BEEN FAXED TO: [facility] [place] P- [phone] F- [phone] .... (OFFICE CLOSED [facility]) BLUE SHIELD/PROMISE NCM: SILAS MCLAIN P- [phone] [id number] F- [phone] .... (OFFICE CLOSED [facility])
--- NOTE | 2018-07-02 18:40 | NUR ---
NURSE NOTES: Pt discharged per MD orders. Heart monitor removed and returned to tech. IV removed. No swelling or redness noted. Pt. is stable. Signed belongings list is in chart along with signed photo copy of prescription. Pt stable at time of discharge.
[2018-07-03] MEDS ORDERED: Citalopram Hydrobromide 10mg Tab ORAL SCH (09:00)
--- NOTE | 2018-07-04 09:07 | Discharge Summary ---
Discharge Summary Discharge Summary _ DATE OF ADMISSION: 07/01/2018 DATE OF DISCHARGE: 07/02/2018 DISCHARGED BY: Dr. Monsalve REASON FOR ADMISSION: 48 years old female with past medical history of hypertension, ovarian cysts , status post removal, status post ureter stent after cyst removal due to ureteral stricture, diverticulosis, presented with complaint of chest pain. Pain started early in the morning. Patient felt pressure-like sensation in her chest with radiation to the left arm. No nausea ,no vomiting. No diaphoresis. No exertional component, No shortness of breath. In the emergency room she already felt better. Upon evaluation vital signs revealed elevated blood pressure 157/89, otherwise stable. Laboratory workup revealed no leukocytosis, stable hemoglobin and hematocrit. Stable electrolytes and renal parameters. EKG revealed normal sinus rhythm, no acute ischemic changes. Urinalysis showed evidence of pyuria, hematuria and few bacteria. Chest x-ray showed no acute cardiopulmonary pathology. Patient was admitted for further management CONSULTANTS: amphibious operations officer Dr. Monsalve pulmonary Dr. Barnes psychiatrist [facility] COURSE: Patient admitted to telemetry floor. Serial troponin were negative. EKG and telemetry revealed no acute ischemic changes. Patient was ruled out for acute myocardial infarction. Echocardiogram revealed preserved ejection fraction of 60% with mild left ventricular hypertrophy. Right ventricular systolic pressure 15. Parimutuel Ticket Checker closely followed. Per cardiology, chest pain was atypical. Myocardial perfusion stress test was nonischemic. Calculated ejection fraction of 70%. Blood pressure was managed with LIDIA inhibitor and clonidine on as needed basis. Blood pressure stabilized. Pain management was addressed, and pain was controlled. Parimutuel Ticket Checker cleared patient for discharge. Renal ultrasound was done due to history of ureteral stricture and evidence of hematuria on urinalysis. It revealed mild right-sided hydroureteronephrosis , improved with postvoid images. Echogenic focus in the upper pole of the right kidney , possibly representing a subcentimeter punctate renal stone ; if present contributing to noted hematuria. Renal echogenicity was within normal limits bilaterally. No significant postvoid residual bladder volume. Patient was encouraged to maintain generous oral fluid intake Psychiatrist followed. Patient started on Celexa. Supportive therapy provided. Patient clinically stabilized. Chest pain resolved. Blood pressure stable. Due to rapid and unexpected improvement in patient condition, patient was discharged in 1 day. FINAL DIAGNOSES: Atypical chest pain , possibly due to anxiety Hypertension History of Chiari malformation History of ureteral stricture History of diverticulosis. Anxiety DISCHARGE MEDICATIONS: See Medication Reconciliation list. DISCHARGE INSTRUCTIONS: Patient was discharged home . Follow up with primary care provider in two weeks. I have been assigned to dictate discharge summary for this account. I was not involved in the patient's management. Yue Euceda NP Jul 04, 2018 09:07
--- NOTE | 2018-07-11 14:25 | Cardiology Report ---
APPROVED REPORT EKG Measurement Heart [id number] Normal sinus rhythm Normal ECG
--- NOTE | 2018-07-12 09:10 | Cardiology Report ---
APPROVED REPORT EXAM: Two-dimensional and M-mode echocardiogram with Doppler and color Doppler. INDICATION Chest Pain M-Mode DIMENSIONS IVSd1.4 (0.7-1.1cm)Left Atrium (MM)4.1 (1.6-4.0cm) LVDd4.1 (3.5-5.6cm)Aortic Root3.6 (2.0-3.7cm) PWd1.3 (0.7-1.1cm)Aortic Cusp Exc.2.0 (1.5-2.0cm) LVDs2.6 (2.5-4.0cm) PWs1.5 cm Normal left ventricular chamber size, systolic function and wall motion. Left ventricular ejection fraction estimated to be 60 %. Mild left ventricular hypertrophy. Anterior Echo-free space, may be due to pericardial fat or effusion. Mild left atrial enlargement. Right cardiac chamber sizes are within normal limits. Normal appearing aortic, mitral, pulmonic and tricuspid valves. Mild mitral annulus and aortic root calcification. IVC is normal in size with physiological collapse. A color flow and spectral Doppler study was performed and revealed: Mild aortic insufficiency. Trace mitral regurgitation. Mitral diastolic velocities suggest mild left ventricular diastolic dysfunction (Grade I). Trace tricuspid regurgitation. Tricuspid systolic velocities suggests peak right ventricular systolic pressure of 15 mmHg. No pulmonic regurgitation present.
== END 2018-07-02 18:00 | disposition home or self-care (01) | DRG 203 ==
LOC: EMR 23:47 → 2E 07-01 00:56 → EDBEDREQ 07-01 01:17
DX: R07.89 Other chest pain (principal); N13.1 Hydronephrosis with ureteral stricture, not elsewhere classified; K57.90 Diverticulosis of intestine, part unspecified, without perforation or abscess without bleeding; F41.9 Anxiety disorder, unspecified; Q07.00 Arnold-Chiari syndrome without spina bifida or hydrocephalus; Z88.6 Allergy status to analgesic agent; Z88.8 Allergy status to other drugs, medicaments and biological substances; I10 Essential (primary) hypertension
CPT/HCPCS: 36415; 71045; 76770; 78452; 80048; 80053; 81003; 82550; 82553; 84484; 85025; 93005; 93017; 93306; 96365; 96375; 99283

== ENCOUNTER 2018-09-28 17:46 | Emergency (ER) | payer MEDICAID ==
[~2018-09-28] VITALS: Ht 170.2 cm; Wt 70.8 kg
[~2018-09-28 17:46] MED LIST changes: +CIPRO500 MG/51 PO
[2018-09-28 18:10] VITALS: BP 150/89
[2018-09-28] MEDS ORDERED: Benzonatate 100mg Perles ORAL ONE (18:15)
--- NOTE | 2018-09-28 18:23 | Emergency Room Report ---
History of Present Illness General Chief Complaint: Upper Respiratory Illness Source: Medical Record Present Illness HPI 48-year-old female patient presents the ER complaining of cough for the past 3 weeks. Reports cough initially was dry however she began to cough up sputum over the past week. Reports sputum is green. Denies hemoptysis. Denies chest pain or shortness of breath. Denies history of heart disease or asthma. Reports no recent travel. Denies calf pain. Denies smoking. States has taken [id number] cough medications without relief of symptoms. Reports has had contacts with friends who have "walking pneumonia". Denies vomiting. Also complaining of diarrhea times 1 day. Denies blood in diarrhea. Denies recent travel outside the country. Denies abdominal pain. Reports she is on a juice cleanse and symptoms began after drinking the juice this morning. Denies fever. Denies other aggravating or relieving factors. Allergies: Coded Allergies: HYDROMORPHONE (Verified Allergy, Intermediate, Anaphylaxis, 06/22/14) sob, itching and closing throat IODINE (Verified Allergy, Mild, Rash, 06/06/13) RASPBERRY (Verified Allergy, Unknown, 04/03/16) SHELLFISH DERIVED (Verified Allergy, Unknown, 04/03/16) WHEAT (Verified Allergy, Unknown, 09/21/15) OSELTAMIVIR (Verified Adverse Reaction, Mild, 07/04/16) Nausea, vomiting, stomach discomfort and diarrhea Patient History Past Medical History: see triage record Last Menstrual Period: 1998 Reviewed Nursing Documentation: PMH: Agreed; PSxH: Agreed Nursing Documentation-PMH Past Medical History: No History, Except For Hx Cardiac Problems: Yes - ovarian cysts Hx Hypertension: Yes Hx Pacemaker: No Hx Asthma: No Hx COPD: No Hx Diabetes: No Hx Gastrointestinal Problems: Yes - diverticulitis Hx Dialysis: No Hx Neurological Problems: No Hx Cerebrovascular Accident: No Hx Seizures: No Hx Dizziness: Yes Review of Systems All Other Systems: negative except mentioned in HPI Physical Exam Vital Signs Date Time Temp Pulse Resp B/P (MAP) Pulse Ox O2 Delivery O2 Flow Rate FiO2 09/28/18 18:04 99.0 94 16 150/89 96 Room Air Sp02 EP Interpretation: reviewed, normal General Appearance: well appearing, no apparent distress, alert, GCS 15, non- toxic Head: normocephalic, atraumatic Eyes: bilateral eye normal inspection, bilateral eye PERRL ENT: hearing grossly normal, normal pharynx, no angioedema, normal voice, uvula midline, moist mucus membranes Neck: full range of motion Respiratory: lungs clear, normal breath sounds, no rhonchi, no respiratory distress, no accessory muscle use, no wheezing, speaking full sentences Cardiovascular #1: regular rate, rhythm, no edema Musculoskeletal: back normal, digits/nails normal, gait/station normal, normal range of motion, non-tender, no calf tenderness, Ana's Sign negative Neurologic: alert, oriented x3, responsive, motor strength/tone normal, sensory intact Psychiatric: mood/affect normal Skin: no rash Medical Decision Making PA Attestation Dr. Felix is my supervising Physician whom patient management has been discussed with. Diagnostic Impression: Primary Impression: Atypical pneumonia Additional Impression: Diarrhea ER Course Pt presents to ED c/o cough with sputum x3 weeks and diarrhea x1 day. DDX considered but are not limited to influenza, viral URI, pneumonia, strep throat, rhinitis, sinusitis, gastritis, enteritis, food poisoning, viral syndrome. Denies recent travel, no tachycardia, no hemoptysis, low suspicion for PE per well's criteria. No abdominal tenderness palpation, no blood in stool, low suspicion for diverticulitis, does not require CT abdomen at this time. VITAL SIGNS are WNL, patient is afebrile. ER COURSE: Provided with Bob Allen. Lungs clear to auscultation, no wheezes rhonchi or rales. Does not require breathing treatment at this time. Chest x-ray shows no acute disease per the preliminary reading. Due to duration of symptoms, will provide patient with antibiotics, atypical pneumonia. Denies urinary complaints, no confusion, less than 65 years old, okay for outpatient follow-up and treatment. ER precautions. Followup with PCP in 1-2 days. No abdominal TTP, negative Rovsing, normal bowel sounds. Low suspicion for appendicitis or diverticulitis, does not require labs or CT abdomen at this time. No fever, no blood in stool, no recent travel or hospitalizations, does not require abx treatment at this time. No signs of dehydration, moist mucus membranes, cap refil <2seconds, normal skin turgor. Patient reports eating and drinking normally. ER precautions given. Drink plenty of fluids. DISCHARGE: At this time pt is stable for d/c to home. Patient is resting comfortably, in no acute distress, nontoxic appearing, talking without difficulty. Patient to take medications as instructed Will provide with patient care instructions and any necessary prescriptions. Care plan and follow-up instructions provided. Patient instructed to follow-up with primary care provider in 2-3 days. Patient questions asked and answered. Patient reports understanding and agreement to treatment plan. ER precautions given. Patient instructed to return to ER immediately for any new or worsening of symptoms including but not limited to increasing SOB, persistent fever. - Please note that this Emergency Department Report was dictated using [employer] consultant technology software, occasionally this can lead to erroneous entry secondary to interpretation by the dictation equipment. Chest X-Ray Diagnostic Results Chest X-Ray Diagnostic Results : Chest X-Ray Ordered: Yes # of Views/Limited/Complete: 1 View Indication: Other - cough EP Interpretation: Yes PA Xray: Interpretation reviewed, by supervising MD, and agrees with findings. Interpretation: no consolidation, no effusion, no pneumothorax, no acute cardiopulmonary disease Impression: No acute disease PA Scribe Text Dameon Mckeon PA-Isaac Last Vital Signs Date Time Temp Pulse Resp B/P (MAP) Pulse Ox O2 Delivery O2 Flow Rate FiO2 09/28/18 18:04 99.0 94 16 150/89 96 Room Air Status: improved Disposition: HOME, SELF-CARE Condition: Stable Scripts Azithromycin* (ZITHROMAX*) 250 Mg Tablet 250 MG ORAL DAILY, #6 TAB 0 Refills Take two tables once daily for 1 day, then one tablet once daily for 4 days. Prov: Anthony Mckeon 09/28/18 Acetaminophen* (TYLENOL EXTRA STRENGTH*) 500 Mg Tablet 500 MG ORAL Q8H PRN for Prn Headache/Temp > 101, #30 TAB 0 Refills Prov: Anthony Mckeon 09/28/18 Benzonatate* (TESSALON PERLE*) 100 Mg Capsule 100 MG ORAL THREE TIMES A DAY, #30 PERLE Prov: Anthony Mckeon.A. 09/28/18 Patient Instructions: Community-Acquired Pneumonia, Adult, [id number], Diarrhea, Adult, [id number], Food Choices to Help Relieve Diarrhea, Adult Additional Instructions: Followup with primary care provider in 3 -5 days. Drink plenty of fluids. Avoid spicy foods, avoid dairy foods. BRAT diet: bananas, rice, apple sauce, toast. Consider Immodium for diarrhea and Tylenol for pain symptoms. Take medications as directed. Patient questions asked and answered. ER precautions given, patient instructed to return to ER immediately for any new or worsening of symptoms. Anthony Mckeon Sep 28, 2018 18:23
[2018-09-28] MEDS ORDERED: TESSALON PERLE100 MG ORAL (18:55)
[2018-09-28] MEDS ORDERED: TYLENOL EXTRA500 MG ORAL (18:55)
[2018-09-28] MEDS ORDERED: ZITHROMAX250 MG ORAL (18:55)
[2018-09-28 19:00] VITALS: BP 145/72
--- NOTE | 2018-09-28 19:37 | Diagnostic Imaging Report ---
EXAM: XR Chest, 1 View CLINICAL HISTORY: COUGH TECHNIQUE: Frontal view of the chest. COMPARISON: Chest radiography 07/01/18. FINDINGS: Lungs: Unremarkable. No consolidation. Pleural space: Unremarkable. No pneumothorax. Heart: Unremarkable. No cardiomegaly. Mediastinum: Unremarkable. Bones/joints: Unremarkable. IMPRESSION: Normal chest x-ray.
== END 2018-09-28 19:00 | disposition home or self-care (01) ==
LOC: EMR 18:21
DX: J18.9 Pneumonia, unspecified organism (principal); R19.7 Diarrhea, unspecified; Z88.6 Allergy status to analgesic agent; Z91.041 Radiographic dye allergy status; Z91.013 Allergy to seafood; I10 Essential (primary) hypertension
CPT/HCPCS: 71045; 99283

== ENCOUNTER 2018-10-01 23:43 | Emergency (ER) | payer MEDICAID ==
[~2018-10-01] VITALS: Ht 170.2 cm; Wt 69.9 kg
--- NOTE | 2018-10-01 23:56 | NUR ---
ED Nurse Note: Patient presents with complaints of left knee pain, recalls hitting it on her bed frame multiple times.
[2018-10-01] MEDS ORDERED: vitamin (23:59)
--- NOTE | 2018-10-02 00:05 | Emergency Room Report ---
History of Present Illness General Chief Complaint: Lower Extremity Injury Source: Patient Present Illness HPI This is a 48-year-old female with history of high blood pressure. She presents with chief complaint of left knee pain. She said she was no longer on the ground cleaning and now with knee pain. Onset today. Pain is over the patellar area. No swelling. Worse with palpation. 7 out of 10. No other injury. No fever or chills. Allergies: Coded Allergies: HYDROMORPHONE (Verified Allergy, Intermediate, Anaphylaxis, 06/22/14) sob, itching and closing throat IODINE (Verified Allergy, Mild, Rash, 06/06/13) RASPBERRY (Verified Allergy, Unknown, 04/03/16) SHELLFISH DERIVED (Verified Allergy, Unknown, 04/03/16) WHEAT (Verified Allergy, Unknown, 09/21/15) OSELTAMIVIR (Verified Adverse Reaction, Mild, 07/04/16) Nausea, vomiting, stomach discomfort and diarrhea Patient History Past Medical History: see triage record, old chart reviewed, HTN Past Surgical History: other Pertinent Family History: none Social History: Denies: smoking Last Menstrual Period: [place] Now: No Immunizations: other Reviewed Nursing Documentation: PMH: Agreed; PSxH: Agreed Nursing Documentation-PMH Past Medical History: No History, Except For Hx Cardiac Problems: Yes - ovarian cysts Hx Hypertension: Yes Hx Pacemaker: No Hx Asthma: No Hx COPD: No Hx Diabetes: No Hx Gastrointestinal Problems: Yes - diverticulitis Hx Dialysis: No Hx Neurological Problems: No Hx Cerebrovascular Accident: No Hx Seizures: No Hx Dizziness: Yes Review of Systems Eye: Denies: eye pain, blurred vision ENT: Denies: ear pain, nose congestion, throat swelling Respiratory: Denies: cough, shortness of breath Cardiovascular: Denies: chest pain, palpitations Gastrointestinal: Denies: abdominal pain, diarrhea, nausea, vomiting Musculoskeletal: Reports: joint pain; Denies: back pain Skin: Denies: rash Neurological: Denies: headache, numbness Endocrine: Denies: increased thirst, increased urine Hematologic/Lymphatic: Denies: easy bruising All Other Systems: negative except mentioned in HPI Physical Exam Vital Signs Date Time Temp Pulse Resp B/P (MAP) Pulse Ox O2 Delivery O2 Flow Rate FiO2 10/01/18 23:56 98.8 67 16 172/95 97 Room Air vitals with high blood pressure Sp02 EP Interpretation: reviewed, normal General Appearance: well appearing, no apparent distress, alert Head: normocephalic, atraumatic Eyes: bilateral eye PERRL, bilateral eye EOMI ENT: hearing grossly normal, normal pharynx Neck: full range of motion, supple, no meningismus Respiratory: chest non-tender, lungs clear, normal breath sounds Cardiovascular #1: regular rate, rhythm, no murmur Gastrointestinal: normal bowel sounds, non tender, no mass, no organomegaly, no bruit, non-distended Musculoskeletal: back normal, gait/station normal, normal range of motion, tender - over patella. No redness. No edema Psychiatric: mood/affect normal Skin: warm/dry Medical Decision Making Diagnostic Impression: Primary Impression: Contusion of knee, left Qualified Codes: S80.02XA - Contusion of left knee, initial encounter ER Course Patient with left knee pain. No evidence of any obvious trauma. No fracture dislocation per no septic joint. May be just a contusion from pressure from kneeling. Other X-Ray Diagnostic Results Other X-Ray Diagnostic Results : X-Ray ordered: left knee x-rays # of Views/Limited Vs Complete: 4 View Indication: Pain EP Interpretation: Yes Interpretation: no dislocation, no soft tissue swelling, no fractures Impression: No acute disease Electronically Signed by: Darrius Erickson MD Last Vital Signs Date Time Temp Pulse Resp B/P (MAP) Pulse Ox O2 Delivery O2 Flow Rate FiO2 10/01/18 23:56 98.8 67 16 172/95 97 Room Air Status: improved Disposition: HOME, SELF-CARE Condition: Stable Scripts Ibuprofen* (MOTRIN*) 600 Mg Tablet 600 MG ORAL THREE TIMES A DAY, #30 TAB 0 Refills Prov: Darrius Erickson MD 10/02/18 Additional Instructions: Follow-up with your doctor in 7 days. Ice pack to the area. Return if worse. Darrius Erickson MD Oct 02, 2018 00:05
[2018-10-02] MEDS ORDERED: IBUPROFEN600 MG ORAL (00:47)
--- NOTE | 2018-10-02 00:54 | NUR ---
ED Nurse Note: Patient discharged in stable condition, Patient verbalized understanding of discharge instructions. patient ambulatory with steady gait and no assistive devices. Patient ID band removed.
[2018-10-02 00:56] VITALS: BP 172/95
--- NOTE | 2018-10-02 15:57 | Diagnostic Imaging Report ---
Indication: Left knee pain for 2 days Technique: 4 views of the left knee Comparison: None Findings: No suprapatellar effusion. No acute fractures. No dislocations. The joint spaces are preserved. Impression: Negative
== END 2018-10-02 00:52 | disposition home or self-care (01) ==
LOC: EMR 23:59
DX: S80.02XA Contusion of left knee, initial encounter (principal); I10 Essential (primary) hypertension; Z88.6 Allergy status to analgesic agent; Z91.041 Radiographic dye allergy status; Z91.013 Allergy to seafood; K57.90 Diverticulosis of intestine, part unspecified, without perforation or abscess without bleeding; X58.XXXA Exposure to other specified factors, initial encounter; Y92.9 Unspecified place or not applicable
CPT/HCPCS: 99283

== ENCOUNTER 2018-10-14 00:34 | Emergency (ER) | payer MEDICAID ==
[~2018-10-14] VITALS: Ht 170.2 cm; Wt 69.9 kg
[~2018-10-14 00:34] MED LIST changes: +vitamin
[2018-10-14 00:53] VITALS: BP 179/92
--- NOTE | 2018-10-14 00:53 | NUR ---
ED Nurse Note: Patient presents with pain that radiates from her back to her anterior pelvis. 10/10 on pain scale.
--- NOTE | 2018-10-14 00:57 | Emergency Room Report ---
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 She presents with [employer] right flank pain. Onset today. Pain is sharp and crampy. No fever chills. Radiate to the groin. Pain is 9 out of 10. Has nausea but no vomiting. No diarrhea. Nothing made it better. Movement made it worse. Allergies: Coded Allergies: HYDROMORPHONE (Verified Allergy, Intermediate, Anaphylaxis, 06/22/14) sob, itching and closing throat IODINE (Verified Allergy, Mild, Rash, 06/06/13) RASPBERRY (Verified Allergy, Unknown, 04/03/16) SHELLFISH DERIVED (Verified Allergy, Unknown, 04/03/16) WHEAT (Verified Allergy, Unknown, 09/21/15) OSELTAMIVIR (Verified Adverse Reaction, Mild, 07/04/16) Nausea, vomiting, stomach discomfort and diarrhea Patient History Past Medical History: see triage record, old chart reviewed Past Surgical History: hysterectomy, other Pertinent Family History: none Social History: Denies: smoking Last Menstrual Period: 1998- hysterectomy Immunizations: other Reviewed Nursing Documentation: PMH: Agreed; PSxH: Agreed Nursing Documentation-PMH Past Medical History: No History, Except For Hx Cardiac Problems: Yes - ovarian cysts Hx Hypertension: Yes Hx Pacemaker: No Hx Asthma: No Hx COPD: No Hx Diabetes: No Hx Gastrointestinal Problems: Yes - diverticulitis Hx Dialysis: No Hx Neurological Problems: No Hx Cerebrovascular Accident: No Hx Seizures: No Hx Dizziness: Yes Review of Systems Eye: Denies: eye pain, blurred vision ENT: Denies: ear pain, nose congestion, throat swelling Respiratory: Denies: cough, shortness of breath Cardiovascular: Denies: chest pain, palpitations Gastrointestinal: Reports: abdominal pain; Denies: diarrhea, nausea, vomiting Musculoskeletal: Reports: back pain; Denies: joint pain Skin: Denies: rash Neurological: Denies: headache, numbness Endocrine: Denies: increased thirst, increased urine Hematologic/Lymphatic: Denies: easy bruising All Other Systems: negative except mentioned in HPI Physical Exam Vital Signs Date Time Temp Pulse Resp B/P (MAP) Pulse Ox O2 Delivery O2 Flow Rate FiO2 10/14/18 00:36 98.2 79 18 95 Room Air vitals with high blood pressure Sp02 EP Interpretation: reviewed, normal General Appearance: well appearing, no apparent distress, alert Head: normocephalic, atraumatic Eyes: bilateral eye PERRL, bilateral eye EOMI ENT: hearing grossly normal, normal pharynx Neck: full range of motion, supple, no meningismus Respiratory: chest non-tender, lungs clear, normal breath sounds Cardiovascular #1: regular rate, rhythm, no murmur Gastrointestinal: normal bowel sounds, non tender, no mass, no organomegaly, no bruit, non-distended Musculoskeletal: back normal, gait/station normal, normal range of motion Psychiatric: mood/affect normal Skin: warm/dry Medical Decision Making Diagnostic Impression: Primary Impression: Low back pain Qualified Codes: M54.5 - Low back pain Additional Impressions: Hypertension Qualified Codes: I10 - Essential (primary) hypertension Hydronephrosis Qualified Codes: N13.1 - Hydronephrosis with ureteral stricture, not elsewhere classified ER Course This patient presents with right flank pain. No evidence of any stone that she has severe right hydronephrosis. She does have a history of ureteral stricture in this area. She has previous stent in this area. It was removed 2 years ago. She may need another one. No evidence of any infection on urinalysis. We 'll await culture before treatment. Pain is better controlled now. Patient has history of high blood pressure but not taking medication. We'll put her on medication. No evidence of endorgan damage. Lab Results Impression labs unremarkable CT/MRI/US Diagnostic Results CT/MRI/US Diagnostic Results : Imaging Test Ordered: CT abdomen and pelvis Impression Read by radiologist. Severe right hydronephrosis. No obstructing stone or mass. Sigmoid diverticulosis. Last Vital Signs Date Time Temp Pulse Resp B/P (MAP) Pulse Ox O2 Delivery O2 Flow Rate FiO2 10/14/18 00:36 98.2 79 18 95 Room Air Status: improved Disposition: HOME, SELF-CARE Condition: Stable Scripts Amlodipine Besylate (Norvasc) 10 Mg Tablet 10 MG ORAL DAILY, #30 TAB Prov: Darrius Erickson MD 10/14/18 Hydrocodone/Acetaminophen 5-325* (HYDROCODONE/ACETAMINOPHEN 5-325*) 1 Each Tablet 1 TAB ORAL Q6H PRN for For Pain, #10 TAB 0 Refills Prov: Darrius Erickson MD 10/14/18 Patient Instructions: Back Pain, Adult Additional Instructions: Follow-up your doctor in 7 days. You will need referral to see a urologist for your hydronephrosis. Take your blood pressure medication. Return of worse. Darrius Erickson MD October 14, 2018 00:57
[2018-10-14] MEDS ORDERED: Ketorolac 30mg Inj IV ONE (01:00)
--- NOTE | 2018-10-14 01:12 | NUR ---
ED Nurse Note: Patient went down for CT
[2018-10-14 01:19] LABS: APPEARANCE,URINE CLEAR; BILIRUBIN, URINE NEGATIVE (NEGATIVE); COLOR,URINE PALE YELLOW; GLUCOSE, URINE (UA) NEGATIVE (NEGATIVE); KETONES,URINE NEGATIVE (NEGATIVE); LEUKOCYTE ESTERASE ,URINE 2+ (NEGATIVE); NITRITE,URINE NEGATIVE (NEGATIVE); PH,URINE 6 (4.5-8.0); PROTEIN,URINE NEGATIVE (NEGATIVE); UROBILINOGEN,URINE NORMAL MG/DL (0.0-1.0)
[2018-10-14 01:21] LABS: BASOPHILS % (AUTO) 1.1 % (0.0-2.0); HEMATOCRIT 38.8 % (37.0-47.0); HEMOGLOBIN 13.2 G/DL (12.0-16.0); LYMPHOCYTES % (AUTO) 35.9 % (20.0-45.0); MEAN CORPUSCULAR VOLUME 89 FL (80-99); MONOCYTES % (AUTO) 5.1 % (1.0-10.0); NEUTROPHILS % (AUTO) 54.9 % (45.0-75.0); PLATELET COUNT 326 K/UL (150-450); RED BLOOD COUNT 4.35 M/UL (4.20-5.40); RED CELL DISTRIBUTION WIDTH 11.8 % (11.6-14.8); WHITE BLOOD COUNT 10.9 K/UL (4.8-10.8)
--- NOTE | 2018-10-14 01:22 | NUR ---
ED Nurse Note: Patient returned from CT
[2018-10-14 01:31] LABS: ANION GAP 8 mmol/L (5-15); BLOOD UREA NITROGEN 21 mg/dL (7-18); CALCIUM 9.6 MG/DL (8.5-10.1); CARBON DIOXIDE 29 MMOL/L (21-32); CHLORIDE 100 MMOL/L (98-107); CREATININE 0.7 MG/DL (0.55-1.30); POTASSIUM 4.5 MMOL/L (3.5-5.1); SODIUM 137 MMOL/L (136-145)
[2018-10-14 01:35] LABS: ALANINE AMINOTRANSFERASE 32 U/L (12-78); ALBUMIN 3.9 G/DL (3.4-5.0); ALBUMIN/GLOBULIN RATIO 0.8 (1.0-2.7); ALKALINE PHOSPHATASE 95 U/L (46-116); ASPARTATE AMINO TRANSFERASE 44 U/L (15-37); BILIRUBIN,TOTAL 0.4 MG/DL (0.2-1.0)
[2018-10-14] MEDS ORDERED: Morphine Sulfate 4mg/ml Inj (IV USE ONLY) IVP ONE (01:45)
--- NOTE | 2018-10-14 02:18 | NUR ---
ED Nurse Note: ERMD at bedside discussing findings on CT
[2018-10-14] MEDS ORDERED: NORVASC10 MG ORAL (02:31)
[2018-10-14] MEDS ORDERED: HYDROCODON-ACE1 EA15 ORAL (02:31)
[2018-10-14 02:39] VITALS: BP 164/93
--- NOTE | 2018-10-14 02:39 | NUR ---
ED Nurse Note: Patient cleared for discharge, patient verbalized understanding of discharge instructions and recommendations. patients IV removed, patient's ID band removed. Patient departed with all belongings.
--- NOTE | 2018-10-14 10:48 | Diagnostic Imaging Report ---
Indication: Abdominal pain Technique: Continuous helical transaxial imaging of the abdomen and pelvis was obtained from the lung bases to the pubic symphysis. No intravenous contrast was administered. Coronal 2-D reformats were also obtained. Automatic Exposure Control was utilized. Total Dose length Product (DLP): 781.[address] Dose Index Volume (CTDIvol): 15.23 mGy Comparison: 11/22/2017 Findings: There is a severe right hydroureter ureteronephrosis with dilatation of the ureter which is well seen. There is no obstructing stone. There is no obvious mass accounting for this. The finding was seen previously but the degree of hydronephrosis appears slightly worse. Urology consultation is recommended. There is no hydronephrosis on the left. There is no perinephric stranding. The cortical volume of both kidneys appears normal. There is an umbilical hernia containing fat. There is mild calcification of the aorta. There is mild thickening of the wall the sigmoid colon. There are diverticula within the colon. There is no inflammation in the perisigmoid fat identified. Gallbladder is contracted. Evaluation of solid organs limited by the nonadministration of contrast material. Uterus is absent. IMPRESSION: Severe right hydronephrosis without mass or stone to account for this. Similar findings noted previously 11/22/2017. Etiology unknown. Further clinical evaluation is recommended. Umbilical hernia containing fat Status post hysterectomy Diverticulosis of the colon. [facility] has communicated the preliminary results to the Emergency Department. Their findings are largely concordant with this report. The CT scanner at [facility] is accredited by the [employer] and the scans are performed using dose optimization techniques as appropriate to a performed exam including Automatic Exposure control.
== END 2018-10-14 02:39 | disposition home or self-care (01) ==
LOC: EMR 00:56
DX: M54.5 Low back pain (principal); I10 Essential (primary) hypertension; N13.1 Hydronephrosis with ureteral stricture, not elsewhere classified; Z90.710 Acquired absence of both cervix and uterus; Z88.6 Allergy status to analgesic agent; Z91.041 Radiographic dye allergy status; Z91.013 Allergy to seafood; Z91.018 Allergy to other foods; K57.90 Diverticulosis of intestine, part unspecified, without perforation or abscess without bleeding
CPT/HCPCS: 36415; 74176; 80053; 81003; 83690; 85025; 96361; 96374; 96375; 99284; J1885; J2270; J2405